=== PATIENT | male | born 1970 | race African-American/Black ===

== ENCOUNTER 2024-02-27 02:16 | Emergency (ER) | payer MEDICAID, SELFPAY ==
[2024-02-27 02:17] VITALS: BMI 41.3
--- NOTE | 2024-02-27 02:19 | EKG_ITS ---
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
[2024-02-27 02:29] VITALS: BP 171/112; BP 173/119; PULSE 87; RESP 18; TEMP 36.5; O2SAT 96
--- NOTE | 2024-02-27 02:39 | XR_ITS ---
Examination: PA chest single view Technique: Upright PA chest single view Exam date and time: February 27, 2024 0243 hrs. Indications: SOB today, COPD history Findings: Normal heart size No pneumonia or pulmonary edema The osseous structures are intact Impression: No active disease
--- NOTE | 2024-02-27 02:40 | PD.EDRME ---
Rapid Medical Screening Exam RME Arrival date/time: 02/27/24 02:16 53M with history of COPD presents to ED with 1 day of SOB. Chief Complaint: Shortness of Breath/Dyspnea Time Seen by Provider: 02/27/24 02:47 Vital signs: Vital Signs Temperature 97.7 F 02/27/24 02:29 Pulse Rate 87 02/27/24 02:29 Respiratory Rate 18 02/27/24 02:29 Blood Pressure 173/119 H 02/27/24 02:29 Pulse Oximetry (%) 96 02/27/24 02:29 Oxygen Delivery Method Room Air 02/27/24 02:29
[2024-02-27] MEDS: IPRATROPIUM RT 0.5 MG/ 2.5 ML NEBU 1 MG INH (02:53)
[2024-02-27] MEDS: SODIUM CHLORIDE RT SOL 0.9% 3 ML NEBU INH (02:53)
[2024-02-27] MEDS: LEVALBUTEROL RT 1.25 MG/0.5 ML NEBU 5 MG INH (02:54)
[2024-02-27 03:01] VITALS: PULSE 72; RESP 20; O2SAT 95
[2024-02-27] MEDS: DEXAMETHASONE SOD PHOS INJ 10 MG/ML VIAL PO (03:18)
[2024-02-27 03:27] LABS: Basophils # (Auto) 0.1 Thou/mm3 (0.0-0.2); Basophils % (Auto) 1 % (0-2.5); Eosinophils # (Auto) 0.3 Thou/mm3 (0.0-0.5); Eosinophils % (Auto) 2 % (0-10); Hematocrit 44.7 % (41.0-53.0); Immature Granulocytes % (Auto) 1 % (0-0); Lymphocytes % (Auto) 22 % (10-50); Mean Corpuscular HGB Conc 33.6 g/dl (31.0-37.0); Mean Corpuscular Hemoglobin 29.4 pg (25.0-35.0); Mean Corpuscular Volume 88 fL (80-100); Monocytes # (Auto) 1.1 Thou/mm3 (0.0-0.8); Monocytes % (Auto) 8 % (0-12); Neutrophils % (Auto) 66 % (37-80); Nucleated Red Blood Cell % 0 /100 WBC (0); Platelet Count 228 Thou/mm3 (140-440); RDW Standard Deviation 41.6 fL (35.1-43.9); White Blood Count 13.6 Thou/mm3 (3.8-10.6)
[2024-02-27 03:37] LABS: B-Type Natriuretic Peptide < 20 pg/mL (0-100)
[2024-02-27 03:39] LABS: Alanine Aminotransferase 18 U/L (10-49); Albumin, Serum 4.3 gm/dL (3.5-5.0); Albumin/Globulin Ratio 1.7 (1.2-2.2); Alkaline Phosphatase 67 U/L (46-116); Anion Gap 7 (7-16); Aspartate Amino Transferase 16 U/L (0-34); BUN/Creatinine Ratio 14 Ratio (12-20); Bilirubin,Total 0.4 mg/dL (0.3-1.2); Blood Urea Nitrogen 11 mg/dL (9-23); Calcium 9.5 mg/dL (8.3-10.6); Calcium (Corrected) 9.5 mg/dL (8.5-10.1); Carbon Dioxide 27.5 mMol/L (20.0-31.0); Chloride 109 mMol/L (98-107); Creatinine (Component) 0.8 mg/dL (0.6-1.3); Estimated Creatinine Clearance 142.4 mL/min (>60); Globulin 2.5 gm/dL (2.3-3.5); Glucose 84 mg/dL (74-106); Osmolality,Calculated 283 (275-295); Potassium 3.5 mMol/L (3.4-5.1); Sodium 143 mMol/L (136-145); Total Protein 6.8 gm/dL (5.7-8.2); Troponin I < 0.020 ng/mL (0.0-0.045); eGFR > 60 See Note
--- NOTE | 2024-02-27 03:55 | EDNOTE_ITS ---
ED SOB =RME/HPI General Chief Complaint: Shortness of Breath/Dyspnea Stated Complaint: DIFF BREATHING; HX COPD Time Seen by Provider: 02/27/24 02:47 Arrival date/time: 02/27/24 02:16 Limitations: no limitations RME / HPI RME / HPI Narrative: 02/27/24 02:16 53M with history of COPD presents to ED with 1 day of SOB. ---- Dr[facility] Main ED Evaluation: 53yo male with a history of COPD, asthma presents to the ED for a chief complaint of shortness of breath since last night. Patient reports an associated cough. He endorses he smokes cigarettes. He denies any fever, chills, N/V or any other associated symptoms. Related Data Home Medications ?Medication ?Instructions ?Recorded ?Confirmed metoprolol succinate 25 mg 25 mg PO QDAY 09/29/23 09/29/23 tablet,extended release 24 hr Previous Rx's ?Medication ?Instructions ?Recorded albuterol sulfate 90 mcg/actuation 2 inh inhalation Q4H PRN shortness 08/10/23 aerosol inhaler (Ventolin HFA) of breath or wheezing #8.5 grams tiotropium bromide 18 mcg capsule 1 cap inhalation QDAY #2 puffs 08/10/23 with inhalation device (Spiriva with HandiHaler) levofloxacin 750 mg tablet 750 mg PO QDAY #7 tabs 09/29/23 prednisone 50 mg tablet 50 mg PO QDAY #7 tabs 02/27/24 Allergies Allergy/AdvReac Type Severity Reaction Status Date / Time Penicillins Allergy Severe HIVES, Verified 02/27/24 02:19 EYES SWELL Sulfa (Sulfonamide Allergy Severe HIVES,EYES Verified 02/27/24 02:19 Antibiotics) SWELL Iodinated Contrast Media Allergy Unknown Anaphylaxis Verified 02/27/24 02:19 Review of Systems Review of Systems Systems Reviewed: All systems reviewed, normal except as documented ED Exam General Limitations: Present no limitations General appearance: Present alert and in no apparent distress Head Head exam: Present atraumatic Eye Eye exam: Present normal appearance, PERRL and EOMI ENT ENT exam: Present normal exam, normal oropharynx and mucous membranes moist Neck Neck exam: Present normal inspection, full ROM and trachea midline Chest Chest inspection: Present normal inspection and symmetric chest wall rise Respiratory Respiratory exam: Present wheezes (diffuse) and other (good air movement); Abse nt accessory muscle use Cardiovascular Cardiovascular exam: Present regular rate, normal rhythm and normal heart sounds Abdominal Exam Abdominal exam: Present soft and normal bowel sounds Extremities Exam Extremities exam: Present normal inspection and full ROM; Absent pedal edema Back Exam Back exam: Present normal inspection and full ROM Neurological Exam Neurological exam: Present alert, oriented X3 and CN II-XII intact Psychiatric Psychiatric exam: Present normal affect and normal mood Skin Skin exam: Present warm, dry, intact and normal color; Absent diaphoresis Course Course Course Narrative: CXR is ordered for determining the etiology of shortness of breath. 0517: Patient states he feels significantly better compared to when he initially came in. He is saturating at 93% on room air, and feels comfortable being discharged at this time. Quality Measures none Orders Category Date Time Status EKG (ED ONLY) *Do not use* NOW Care 02/27/24 02:19 Completed EKG (ED ONLY) *Do not use* NOW Care 02/27/24 05:19 Active EKG (ED Only) Stat Exams 02/27/24 02:19 Draft EKG (ED Only) Stat Exams 02/27/24 05:19 Ordered XR chest 1V portable Stat Exams 02/27/24 02:39 Taken BNP [B-Type Natriuretic Peptide] Stat Lab 02/27/24 03:10 Completed CBC Stat Lab 02/27/24 03:10 Completed Comprehensive Metabolic Panel Stat Lab 02/27/24 03:10 Completed Troponin I Stat Lab 02/27/24 03:10 Completed Dexamethasone Inj [Decadron Inj] Med 02/27/24 02:39 Discontinued 10 mg PO X1 ONE Ipratropium [place] Rt Keisha [Atrovent Rt Keisha] Med 02/27/24 02:39 Discontinued 1 mg INH X1 ONE Levalbuterol Rt [Xopenex Rt Keisha] Med 02/27/24 02:39 Discontinued 5 mg INH X1 ONE Sodium Chloride Rt Keisha 0.9% [NS Rt Keisha 0.9%] Med 02/27/24 02:39 Active 3 ml INH PRN PRN Vital Signs Vital signs: Vital Signs Temperature 97.7 F 02/27/24 02:29 Pulse Rate 87 02/27/24 02:29 Respiratory Rate 18 02/27/24 02:29 Blood Pressure 173/119 H 02/27/24 02:29 Pulse Oximetry (%) 96 02/27/24 02:29 Oxygen Delivery Method Room Air 02/27/24 02:29 Pulse ox is 96% on room air, which is normal according to my interpretation. Procedures -ED Smoking Cessation Time Spent Discussing Smoking Cessation w/Patient (min): 5 Patient Acknowledges Need for Cessation: Yes Additional Comments: The patient was counseled as to the multiple risks to their health from continued use of tobacco products. It was explained that continuing to smoke may lead to multiple short and senior living negative health consequences, including but not limited to mouth/esophageal/lung cancer, COPD, and heart disease. The patient states she/he understands these risks and also understands the options and resources available to them to help them stop smoking. Nicotine replacement therapy, local hotlines, and local resources were discussed as viable options for helping them stop their tobacco use. The total time spent counseling the patient regarding tobacco cessation was 5 minutes. Shortness of Breath / Dyspnea Patient data External records reviewed:: [facility] previous records (Per chart review, patient was admitted here on 09/29/23 for COPD exacerbation.) Clinical information provided by:: patient Social determinants that could affect healthcare access:: substance use (smokes cigarettes) Patient has the following chronic illnesses:: COPD, asthma How is presenting disease/condition affected by chronic disease/condition?: exacerbated by Evaluation data The following diagnostics were reviewed and interpreted by me:: lab results, radiology exam(s) and EKG tracing(s) Lab and/or radiology exams considered but not ordered:: none Interpretation Summary: WBC count is elevated at 13.6, CMP is normal, Troponin is normal, BNP is normal, according to my interpretation. CXR is negative for any pleural effusions, CHF, or infiltrates, according to my interpretation. EKG done at 0236, NSR, rate of 84, poor baseline, artifact noted, according to my interpretation - will repeat EKG. EKG done at 0527, NSR, rate of 85, normal intervals, normal axis, no acute ST or T-wave changes, no STEMI, QTc: 402, according to my interpretation. Medications / Prescriptions Medications or Prescriptions considered but not ordered:: none Medication administrations:: Medication Administration History Sodium Chloride (Sodium Chloride Rt Keisha 0.9% 3 Ml Nebu) 3 ml INH PRN PRN PRN Reason: SOLN Stop: 03/28/24 02:38 Last Admin: 12/20/24 02:53 Dose: 3 ml Documented By: CHINO Discontinued Medications Dexamethasone Sodium Phosphate (Dexamethasone Sod Phos Inj 10 Mg/Ml Vial) 10 mg PO X1 ONE Stop: 02/27/24 02:40 Last Admin: 02/27/24 03:18 Dose: 10 mg Documented By: HUGO Comments: med given po Ipratropium [place] (Ipratropium Rt 0.5 Mg/ 2.5 Ml Nebu) 1 mg INH X1 ONE Stop: 02/27/24 02:40 Last Admin: 02/27/24 02:53 Dose: 1 mg Documented By: CHINO Levalbuterol HCl (Levalbuterol Rt 1.25 Mg/0.5 Ml Nebu) 5 mg INH X1 ONE Stop: 02/27/24 02:40 Last Admin: 02/27/24 02:54 Dose: 5 mg Documented By: CHINO see above Consultations Consultation(s) initiated? (list below): No Diagnosis Shortness of Breath Differential Diagnosis: congestive heart failure, community acquired pneumonia, asthma with exacerbation, pulmonary embolism and other (COPD exacerbation) Most likely diagnosis given after review of the tests above:: see below Admission Indicated Admission indicated?: not indicated Admission Request Was there a request for admission?: No Disposition Plan Disposition Plan: Discharge Discharge Attestation Discharge Attestation: The patient and all family members were given an opportunity to ask questions and understood the discharge instructions. Discharge instructions specifically effects, indications for sooner follow up or return to the emergency department, and the expected course of current diagnosis. Patient condition: Stable Discharge Plan Plan Patient Disposition: HOME (Self Care) Patient condition on transfer: Stable Prescriptions/Referrals Prescriptions/Med Rec: New prednisone 50 mg tablet 50 mg PO QDAY Qty: 7 0RF No Action metoprolol succinate 25 mg tablet extended release 24 hr 25 mg PO QDAY Patient Comments: TAKE 1 TABLET BY MOUTH EVERY DAY levofloxacin 750 mg tablet 750 mg PO QDAY Qty: 7 0RF albuterol sulfate [Ventolin HFA] 90 mcg/actuation HFA aerosol inhaler 2 inh inhalation Q4H PRN (Reason: shortness of breath or wheezing) Qty: 8.5 0RF tiotropium bromide [Spiriva with HandiHaler] 18 mcg capsule, w/inhalation device 1 cap inhalation QDAY Qty: 2 0RF Rx Instructions: puncture 1 cap using device; one dose = 2 inhalations Problem List Clinical Impression: COPD (chronic obstructive pulmonary disease) Patient/Caregiver Discharge Instructions Education Materials: Asthma and COPD Print Language: Irish Stand Alone Forms: [employer]oco Award Info., Patient Portal Info Letter
[2024-02-27 04:30] VITALS: BP 148/106; PULSE 74; RESP 18; TEMP 36.6; O2SAT 90
[2024-02-27 05:54] VITALS: BP 152/101; PULSE 80; RESP 20; TEMP 36.6; O2SAT 91
== END 2024-02-27 05:54 | disposition home or self-care (01) ==
LOC: SERX 06:26
PROVIDERS: Physician Assistant; Emergency Provider Emergency Medicine; PCP Nurse Practitioner Family
DX: J44.89 Other specified chronic obstructive pulmonary disease (principal); F17.210 Nicotine dependence, cigarettes, uncomplicated
CPT/HCPCS: 36415; 71045; 80053; 83880; 84484; 85025; 93005; 94644; 99283; J1100

== ENCOUNTER 2024-11-25 12:07 | Inpatient (IN) | payer MEDICAID, SELFPAY ==
[2024-11-25] VITALS (17 sets, daily range): BP systolic 143–181; BP diastolic 70–113; PULSE 72–111; RESP 10–29; TEMP 36.2–37.3; O2SAT 89–96; BMI 39.1
--- NOTE | 2024-11-25 12:23 | EKG_ITS ---
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
--- NOTE | 2024-11-25 12:23 | XR_ITS ---
Examination: AP chest single view TECHNIQUE: AP chest portable upright single view Date and time: November 26, 2024 1233 hours, comparison February 27, 2024 INDICATIONS: Chest pain shortness of breath beginning 2 days ago FINDINGS: Normal heart size The lungs are clear. The osseous structures are intact IMPRESSION: No active disease
[2024-11-25] MEDS: ALBUTEROL RT 2.5 MG/0.5 ML NEBU 10 MG INH (12:30)
--- NOTE | 2024-11-25 12:30 | PD.EDSOB ---
ED SOB =RME/HPI General Chief Complaint: Shortness of Breath/Dyspnea Stated Complaint: DYSPNEA Time Seen by Provider: 11/25/24 12:23 Arrival date/time: 11/25/24 12:07 RME / HPI RME / HPI Narrative: 54-year-old male patient chronic smoker, history of COPD, came in for evaluation regarding shortness of breath. Has been ongoing for the last 3 to 4 days, severity severe. Patient been having cough also nonproductive. Denies any fever denies any other complaints patient continued to be smoking, he is planning to quit smoking today. Patient was also seen in [place] for the same complaints last night worsening this morning prompted this consultation. He was not prescribed medication while in [place]. Patient has never been intubated. Was admitted here for the same complaints last year. Related Data Home Medications ?Medication ?Instructions ?Recorded ?Confirmed metoprolol succinate 25 mg 25 mg PO QDAY 09/29/23 09/29/23 tablet,extended release 24 hr Previous Rx's ?Medication ?Instructions ?Recorded albuterol sulfate 90 mcg/actuation 2 inh inhalation Q4H PRN shortness 08/10/23 aerosol inhaler (Ventolin HFA) of breath or wheezing #8.5 grams tiotropium bromide 18 mcg capsule 1 cap inhalation QDAY #2 puffs 08/10/23 with inhalation device (Spiriva with HandiHaler) levofloxacin 750 mg tablet 750 mg PO QDAY #7 tabs 09/29/23 prednisone 50 mg tablet 50 mg PO QDAY #7 tabs 02/27/24 Allergies Allergy/AdvReac Type Severity Reaction Status Date / Time Penicillins Allergy Severe HIVES, Verified 02/27/24 02:19 EYES SWELL Sulfa (Sulfonamide Allergy Severe HIVES,EYES Verified 02/27/24 02:19 Antibiotics) SWELL Iodinated Contrast Media Allergy Unknown Anaphylaxis Verified 02/27/24 02:19 Review of Systems Review of Systems Narrative Review of Systems: Review of system reviewed and within normal limits except mentioned in HPI ED Exam Narrative Physical exam: VITAL SIGNS: Reviewed. GENERAL APPEARANCE: Alert and interactive, follows commands, no acute distress, HEAD AND FACE: Non-traumatic. ENT: PERRL, pink conjunctivitis, eyelid no trauma, Mucous membrane moist. NECK: Supple, nontender, no nuchal rigidity. CHEST: No tenderness, no crepitus, no paradoxical movement, no retractions. LUNGS:Symmetric, no rales, + wheezing, no ronchi, no stridor, decreased breath sounds bilaterally. HEART: Regular rate, regular rhythm, no murmur, no gallops. ABDOMEN: Soft, positive bowel sounds, nondistended, no guarding, nontender, no rebound, no masses, RECTAL: Deferred. GENITAL: Deferred. NEUROLOGICAL: Gross motor function intact sensory function intact, Appropriate for age. MUSCULOSKELETAL: low back nontender, full range of motion. EXTREMITIES: Nontender, full range of motion. SKIN: Color pink, dry, no rash, no lacerations, no abrasions, no contusions. LYMPHATICS: Deferred. Course Quality Measures none Orders Category Date Time Status Bedside COVID-19 Antigen Test NOW Care 11/25/24 12:29 Active COVID-19 Screening Questionnaire NOW Care 11/25/24 15:43 Active Sports Physician NOW Care 11/25/24 12:23 Active Decision to Admit X1 Care 11/25/24 15:43 Active EKG (ED ONLY) *Do not use* NOW Care 11/25/24 12:23 Active Insert IV NOW Care 11/25/24 12:23 Active EKG (ED Only) Stat Exams 11/25/24 12:23 Draft XR chest 1V portable Stat Exams 11/25/24 12:23 Completed CBC Stat Lab 11/25/24 12:23 Completed Comprehensive Metabolic Panel Stat Lab 11/25/24 12:34 Completed Mag [Magnesium] Stat Lab 11/25/24 12:34 Completed Troponin I Stat Lab 11/25/24 12:34 Completed ALBUTEROL RT 0.5ml [Proventil Rt 0.5ml] Med 11/25/24 12:23 Discontinued 10 mg INH X1 ONE Albuterol/Ipratr Rt Keisha [Duoneb Rt Keisha] Med 11/25/24 13:46 Discontinued 3 ml INH X1 ONE Ipratropium [place] Rt Keisha [Atrovent Rt Keisha] Med 11/25/24 12:23 Discontinued 1 mg INH X1 ONE Magnesium Sulfate 2 GM Ivpb [Magnesium Sulfate Ivpb] Med 11/25/24 12:29 Discontinued 2 gm in 50 ml IV X1 MethylPREDNISolone.* [SoluMEDROL Inj] Med 11/25/24 12:23 Discontinued 125 mg IVP X1 ONE Sodium Chloride Rt Keisha 0.9% [NS Rt Keisha 0.9%] Med 11/25/24 12:23 Active 3 ml INH PRN PRN Vital Signs Vital signs: Vital Signs Temperature 97.8 F 11/25/24 12:16 Pulse Rate 111 H 11/25/24 12:16 Respiratory Rate 20 11/25/24 12:16 Blood Pressure 179/113 H 11/25/24 12:16 Pulse Oximetry (%) 90 L 11/25/24 12:16 Oxygen Delivery Method Nasal Cannula 11/25/24 12:16 Oxygen Flow Rate 2 11/25/24 12:16 Shortness of Breath / Dyspnea [facility] Narrative MDM Narrative:: 54-year-old male patient chronic smoker, history of COPD, came in for evaluation regarding shortness of breath. Has been ongoing for the last 3 to 4 days, severity severe. Patient been having cough also nonproductive. Denies any fever denies any other complaints patient continued to be smoking, he is planning to quit smoking today. Patient was also seen in [place] for the same complaints last night worsening this morning prompted this consultation. He was not prescribed medication while in [place]. Patient has never been intubated. Was admitted here for the same complaints last year. Patient's laboratory workup all came back with WBC count of 24.9 creatinine is normal, EKG showed sinus rhythm, ventricular 76 bpm, and ST segment elevation depression noted. Chest x-ray showed no active disease noted. Initially patient was noted to be hypoxic, was placed on facemask, breathing treatment was given hour-long, and Solu-Medrol IV. Patient also received magnesium IV. On reevaluation patient still having wheezing, I added DuoNeb breathing treatment. Currently still having shortness of breath and wheezing. Spoke with hospitalist, who admitted the patient, patient satting 95% on facemask. Patient data External records reviewed:: None Clinical information provided by:: patient Social determinants that could affect healthcare access:: none Patient has the following chronic illnesses:: COPD, asthma, chronic smoker How is presenting disease/condition affected by chronic disease/condition?: exacerbated by Evaluation data The following diagnostics were reviewed and interpreted by me:: lab results, radiology exam(s) and EKG tracing(s) Lab and/or radiology exams considered but not ordered:: None Interpretation Summary: See results MDM Medications / Prescriptions Medications or Prescriptions considered but not ordered:: None Medication administrations:: Medication Administration History Sodium Chloride (Sodium Chloride Rt Keisha 0.9% 3 Ml Nebu) 3 ml INH PRN PRN PRN Reason: SOLN Stop: 12/25/24 12:22 Last Admin: 11/25/24 12:31 Dose: 3 ml Documented By: JENNIFER Discontinued Medications Albuterol (Albuterol Rt 2.5 Mg/0.5 Ml Nebu) 10 mg INH X1 ONE Stop: 11/25/24 12:24 Last Admin: 11/25/24 12:30 Dose: 10 mg Documented By: JENNIFER Albuterol/Ipratropium (Albuterol/Ipratropium (Duoneb) Rt Keisha 3 Ml Nebu) 3 ml INH X1 ONE Stop: 11/25/24 13:47 Last Admin: 11/25/24 14:08 Dose: 3 ml Documented By: JENNIFER Magnesium Sulfate (Magnesium Sulfate Ivpb) 2 gm in 50 mls @ 25 mls/hr IV X1 ONE Stop: 11/25/24 14:28 Last Admin: 11/25/24 12:52 Dose: 25 mls/hr Documented By: SALUD Ipratropium [place] (Ipratropium Rt 0.5 Mg/ 2.5 Ml Nebu) 1 mg INH X1 ONE Stop: 11/25/24 12:24 Last Admin: 11/25/24 12:31 Dose: 1 mg Documented By: JENNIFER Methylprednisolone Sodium Succinate (Methylprednisolone Sod Succ 62.5 Mg/Ml 2ml Vial) 125 mg IVP X1 ONE Stop: 11/25/24 12:24 Last Admin: 11/25/24 12:52 Dose: 125 mg Documented By: SALUD Solu-Medrol, DuoNeb, magnesium sulfate, hour-long breathing treatment, with albuterol/DuoNeb Consultations Consultation(s) initiated? (list below): No Diagnosis Shortness of Breath Differential Diagnosis: acute exacerbation of chronic obstructive airways disease, community acquired pneumonia and asthma with exacerbation Most likely diagnosis given after review of the tests above:: Acute exacerbation of COPD with asthma Admission Indicated Admission indicated?: indicated Explain why admission is indicated or not indicated:: Patient is to be admitted for management Admission Request Was there a request for admission?: Yes Admission Attestation Admission request attestation: Discussed case with [Dr. Costa] from Hospitalist service regarding admission. Discussed patients ED course, exam findings, labs, and radiology results. The Hospitalist [agrees] to accept the patient for admission. Disposition Plan Disposition Plan: Admit Discharge Plan Plan Patient Disposition: Admit Acute Care w/in Hospital Discharge Disposition comment: Stable Prescriptions/Referrals Prescriptions/Med Rec: No Action metoprolol succinate 25 mg tablet extended release 24 hr 25 mg PO QDAY Patient Comments: TAKE 1 TABLET BY MOUTH EVERY DAY levofloxacin 750 mg tablet 750 mg PO QDAY Qty: 7 0RF albuterol sulfate [Ventolin HFA] 90 mcg/actuation HFA aerosol inhaler 2 inh inhalation Q4H PRN (Reason: shortness of breath or wheezing) Qty: 8.5 0RF tiotropium bromide [Spiriva with HandiHaler] 18 mcg capsule, w/inhalation device 1 cap inhalation QDAY Qty: 2 0RF Rx Instructions: puncture 1 cap using device; one dose = 2 inhalations prednisone 50 mg tablet 50 mg PO QDAY Qty: 7 0RF Referrals: No Primary/Family,Physician [Primary Care Provider] - In 1 week Problem List Clinical Impression: Acute exacerbation of COPD with asthma, Cigarette smoker Patient/Caregiver Discharge Instructions Print Language: Brazilian Stand Alone Forms: [employer]oco Award Info., Patient Portal Info Letter
[2024-11-25] MEDS: IPRATROPIUM RT 0.5 MG/ 2.5 ML NEBU 1 MG INH (12:31)
[2024-11-25] MEDS: SODIUM CHLORIDE RT SOL 0.9% 3 ML NEBU INH (12:31)
[2024-11-25 12:39] LABS: Basophils # (Auto) 0.1 Thou/mm3 (0.0-0.2); Basophils % (Auto) 0 % (0-2.5); Eosinophils # (Auto) 0.0 Thou/mm3 (0.0-0.5); Eosinophils % (Auto) 0 % (0-10); Hematocrit 44.4 % (41.0-53.0); Hemoglobin 14.4 g/dL (13.5-16.0); Immature Granulocytes Auto 0.19 Thou/mm3 (0.00-0.00); Lymphocytes # (Auto) 0.6 Thou/mm3 (1.0-4.8); Lymphocytes % (Auto) 3 % (10-50); Mean Corpuscular HGB Conc 32.4 g/dl (31.0-37.0); Mean Corpuscular Hemoglobin 29.0 pg (25.0-35.0); Mean Corpuscular Volume 90 fL (80-100); Monocytes # (Auto) 0.9 Thou/mm3 (0.0-0.8); Monocytes % (Auto) 4 % (0-12); Neutrophils # (Auto) 23.1 Thou/mm3 (1.8-7.7); Neutrophils % (Auto) 93 % (37-80); Nucleated Red Blood Cell # 0.00 Thou/mm3 (0.00-0.00); Nucleated Red Blood Cell % 0 /100 WBC (0); Platelet Count 263 Thou/mm3 (140-440); RDW Standard Deviation 43.4 fL (35.1-43.9); Red Blood Count 4.96 Miln/mm3 (4.50-5.90); White Blood Count 24.9 Thou/mm3 (3.8-10.6)
[2024-11-25] MEDS: MethylPREDNISolone SOD SUCC 62.5 MG/ML 2ML VIAL 125 MG IVP (12:52)
[2024-11-25] MEDS: Magnesium Sulfate 2 GM Ivpb 2 GM/50 ML BAG IV (12:52)
[2024-11-25 13:01] LABS: Alanine Aminotransferase 21 U/L (10-49); Albumin, Serum 4.5 gm/dL (3.5-5.0); Albumin/Globulin Ratio 1.9 (1.2-2.2); Alkaline Phosphatase 76 U/L (46-116); Anion Gap 10 (7-16); Aspartate Amino Transferase 21 U/L (0-34); BUN/Creatinine Ratio 11 Ratio (12-20); Bilirubin,Total 0.4 mg/dL (0.3-1.2); Blood Urea Nitrogen 10 mg/dL (9-23); Calcium 9.8 mg/dL (8.3-10.6); Calcium (Corrected) 9.8 mg/dL (8.5-10.1); Carbon Dioxide 27.4 mMol/L (20.0-31.0); Chloride 105 mMol/L (98-107); Creatinine (Component) 0.9 mg/dL (0.6-1.3); Estimated Creatinine Clearance 121.5 mL/min (>60); Globulin 2.4 gm/dL (2.3-3.5); Glucose 129 mg/dL (74-106); Magnesium 2.0 mg/dL (1.6-2.6); Osmolality,Calculated 284 (275-295); Potassium 4.3 mMol/L (3.4-5.1); Sodium 142 mMol/L (136-145); Total Protein 6.9 gm/dL (5.7-8.2); Troponin I < 0.020 ng/mL (0.0-0.045); eGFR > 60 See Note
[2024-11-25] MEDS: ALBUTEROL/IPRATROPIUM (Duoneb) RT SOL 3 ML NEBU INH ×4 (14:08→21:15)
--- NOTE | 2024-11-25 16:37 | ESHP_ITS ---
<Statement entered by Bon Fontana MD - 11/25/24 17:33> 54 year old man with past medical history of COPD not on home oxygen, knee osteoarthritis, tobacco dependence, morbid obesity and likely undiagnosed obstructive sleep apnea presenting to the ED on 11/25 with shortness of breath and wheezing. Patient has multiple admissions over the years for COPD exacerbation and was recently seen at [facility] for similar presentation. He states the shortness of breath has been ongoing for the past 4 days and has progressively worsened. 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 He denies any travel, alcohol or illicit drug use. He denies any precipitating factors such as sick contacts, fever/chills or recent weight loss. Patient follows up with a manager behavioral from [place] (doesn't remember name) who has started him on a yellow inhaler which he states he uses daily. Patient will be admitted for acute hypoxic/hypercapnic respiratory failure secondary to COPD exacerbation and will be treated with IV steroids, IV azithromycin, breathing treatments and BIPAP. Patient is currently on 4L OxyMask supplemental oxygenation and saturating 94+ with diffuse wheezing noted on lung segovia bilaterally. Will continue to monitor for any acute changes. I have personally seen and examined the patient. I agree with the resident's assessment and plan as documented below. Bon Fontana DO PGY-2 Internal Medicine - [facility] Documentation for date of: 11/25/24 HPI History of Present Illness History of present illness: Patient is a 54-year-old male with past medical history of COPD not on oxygen at home, tobacco use, and hx of pulmonary cocci (diagnosed 1993, treated) who presents on 11/25 for severe shortness of breath for the past 3 to 4 days. Reports that he was visiting his brother in [place] when he started having shortness of breath. Given recent contact with black mold at his brother's place. Had to go to ER in [place], was given breathing treatment and steroids with minimal improvement but was discharged home. Patient reports he only uses albuterol inhaler at home but ran out of medications. Has manager behavioral in [place] that diagnosed with COPD. Patient does not use CPAP at night but reports that he snores and is tired upon waking. 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 ED Course: -Initial vitals were BP 179/111, HR 111, RR 20, temp 97.8F, 90% on 2 L NC -Labs significant for WBC 24.9. CMP unremarkable. BNP and troponin WNL. EKG showed sinus rhythm with no ST or T wave abnormalities. -Imaging included unremarkable CXR. -In the ED, patient was given albuterol 10 mg x1, ipratropium 1 mg x 1, Solu- Medrol 125 mg x 1, mag 2 g x 1, DuoNebs x 1 -Patient was admitted for acute hypoxic respiratory failure secondary to COPD exacerbation Review of Systems Review of systems otherwise negative except what is mentioned above. Past Medical History: As above Family History: Noncontributory Surgical History: None Social History: Smoked 1 pack/day for many years. Denies current alcohol use, denies recreational drug use. Works in construction, came in recent contact with black mold. Current Medications: Albuterol inhaler, pending official med rec Allergies: Penicillins (hives), sulfa (hives), iodinated contrast (anaphylaxis) Exam Vital Signs Temp Pulse Resp BP Pulse Ox O2 Del Method O2 Flow Rate 99.1 F 93 27 H 179/110 H 93 L Oxy Mask 4 11/25/24 16:00 11/25/24 16:00 11/25/24 16:00 11/25/24 16:00 11/25/24 16:00 11/25/24 16:00 11/25/24 16:05 Narrative Exam Physical Exam General: Awake, in acute distress due to shortness of breath. Having difficulty completing full sentences. On 8L oxymask. HEENT: Normocephalic, atraumatic, mucous membranes moist. Heart: Regular rate and rhythm, normal S1 and S2, no murmurs. Lungs: Diffuse wheezing bilaterally, left > right. Abdomen: Soft, nondistended, nontender, positive bowel sounds. No guarding or rebound tenderness. Neurologic: Alert and oriented x3, no gross neurological deficit, and patient able to move all 4 extremities. Extremities: No edema. Skin: No rash or ecchymoses. Results: Labs 11/26/24 05:34 11/26/24 05:34 Labs: Short CBC 11/25/24 Range/Units 12:23 WBC 24.9 H (3.8-10.6) Thou/mm3 Hgb 14.4 (13.5-16.0) g/dL Hct 44.4 (41.0-53.0) % Plt Count 263 (140-440) Thou/mm3 BMP 11/25/24 12:34 Sodium 142 Potassium 4.3 Chloride 105 Carbon Dioxide 27.4 BUN 10 Creatinine 0.9 Glucose 129 H Calcium 9.8 Cardiac Enzymes 11/25/24 Range/Units 12:34 Troponin I < 0.020 (0.0-0.045) ng/mL Liver Function 11/25/24 Range/Units 12:34 Total Bilirubin 0.4 (0.3-1.2) mg/dL AST 21 (0-34) U/L ALT 21 (10-49) U/L Alkaline Phosphatase 76 (46-116) U/L Albumin 4.5 (3.5-5.0) gm/dL Quality Measures Quality Measures none Medications Home Medications and Allergies Home Medications ?Medication ?Instructions ?Recorded ?Confirmed ?Type metoprolol succinate 25 mg 25 mg PO QDAY 09/29/2311/08 History tablet,extended release 24 hr Allergies Allergy/AdvReac Type Severity Reaction Status Date / Time Penicillins Allergy Severe HIVES, Verified 02/27/24 02:19 EYES SWELL Sulfa (Sulfonamide Allergy Severe HIVES,EYES Verified 02/27/24 02:19 Antibiotics) SWELL Iodinated Contrast Media Allergy Unknown Anaphylaxis Verified 02/27/24 02:19 Visit Medications Acetaminophen (Acetaminophen 325 Mg Tablet) 650 mg PO Q6H PRN PRN Reason: Pain 1-3 and/or Fever >100.1 Stop: 12/25/24 16:04 Albuterol/Ipratropium (Albuterol/Ipratropium (Duoneb) Rt Keisha 3 Ml Nebu) 3 ml INH Q3HRRT [facility]ANDELL Stop: 12/25/24 16:44 Albuterol/Ipratropium (Albuterol/Ipratropium (Duoneb) Rt Keisha 3 Ml Nebu) 3 ml INH Q2HR PRN PRN Reason: SHORTNESS OF BREATH OR WHEEZE Stop: 12/25/24 16:33 Azithromycin (Azithromycin 250 Mg Tablet) 250 mg PO QDAY RANDELL Stop: 12/03/24 08:59 Heparin Sodium (Porcine) (Heparin Sod Inj 5000 Unit/Ml Vial) 5,000 unit SC Q8HR [facility] Stop: 12/09/24 21:59 Azithromycin 500 mg/ Sodium (Chloride) 250 mls @ 250 mls/hr IV X1 ONE Stop: 11/25/24 17:08 Lisinopril (Lisinopril 2.5 Mg Tablet) 10 mg PO QDAY [facility] Stop: 12/26/24 08:59 Methylprednisolone Sodium Succinate (Methylprednisolone Sod Succ 40 Mg/Ml Vial) 40 mg IM Q8HR [facility] Stop: 12/02/24 21:59 Fluticasone/Salmeterol (Fluticasone/Salmeterol 250/50 14 Dose Inh) 1 puff INH BIDRT [facility] Stop: 12/25/24 18:59 Sodium Chloride (Sodium Chloride Rt Keisha 0.9% 3 Ml Nebu) 3 ml INH PRN PRN PRN Reason: SOLN Stop: 12/25/24 12:22 Last Admin: 11/25/24 12:31 Dose: 3 ml Discontinued Medications Acetaminophen (Acetaminophen 325 Mg Tablet) 650 mg PO Q6H PRN PRN Reason: Fever >101.5 Stop: 12/25/24 16:04 Albuterol (Albuterol Rt 2.5 Mg/0.5 Ml Nebu) 10 mg INH X1 ONE Stop: 11/25/24 12:24 Last Admin: 11/25/24 12:30 Dose: 10 mg Albuterol (Albuterol Rt 2.5 Mg/0.5 Ml Nebu) 2.5 mg INH Q4HRRT [facility] Stop: 12/25/24 18:59 Albuterol/Ipratropium (Albuterol/Ipratropium (Duoneb) Rt Keisha 3 Ml Nebu) 3 ml INH X1 ONE Stop: 11/25/24 13:47 Last Admin: 11/25/24 14:08 Dose: 3 ml Albuterol/Ipratropium (Albuterol/Ipratropium (Duoneb) Rt Keisha 3 Ml Nebu) 3 ml INH Q4HRRT [facility] Stop: 12/25/24 18:59 Magnesium Sulfate (Magnesium Sulfate Ivpb) 2 gm in 50 mls @ 25 mls/hr IV X1 ONE Stop: 11/25/24 14:28 Last Infusion: 11/25/24 16:02 Dose: Infused Ipratropium [place] (Ipratropium Rt 0.5 Mg/ 2.5 Ml Nebu) 1 mg INH X1 ONE Stop: 11/25/24 12:24 Last Admin: 11/25/24 12:31 Dose: 1 mg Labetalol HCl (Labetalol Inj 5 Mg/Ml Vial 20 Ml) 10 mg IVP X1 ONE Stop: 11/25/24 16:23 Methylprednisolone Sodium Succinate (Methylprednisolone Sod Succ 62.5 Mg/Ml 2ml Vial) 125 mg IVP X1 ONE Stop: 11/25/24 12:24 Last Admin: 11/25/24 12:52 Dose: 125 mg Sodium Chloride (Sodium Chloride Rt Keisha 0.9% 3 Ml Nebu) 3 ml INH PRN PRN PRN Reason: SOLN Stop: 12/25/24 16:11 Assessment & Plan Plan Patient is a 54-year-old male with past medical history of COPD not on oxygen at home, tobacco use, and hx of pulmonary cocci (diagnosed 1993, treated) who presents on 11/25 for severe shortness of breath, admitted for acute hypoxic respiratory failure secondary to COPD exacerbation. #Acute hypoxic/hypercapnic respiratory failure 2/ #COPD exacerbation #Hx COPD #Hx tobacco use Presented with 3 to 4-day history of shortness of breath. 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 Went to ER in [place] yesterday, received breathing treatment and steroids without much improvement. Presented today because he ran out of medications at home. Pending official med rec but recent medications include albuterol, Spiriva, prednisone. Was diagnosed by manager behavioral in [place] whom he still follows. Smokes 1 PPD for many years, trying to quit. CXR was negative for pneumonia. S/p albuterol 10 mg x1, ipratropium 1 mg x 1, Solu-Medrol 125 mg x 1, mag 2 g x 1, DuoNebs x 1 in ED. Plan: - Azithromycin 500 mg IV x 1, follow-up with azithromycin to 50 mg daily ?DuoNebs every 3 hour and every 2 hours as needed ?Advair twice daily ?IV Solu-Medrol 40 mg every 8 hour ?Incentive spirometer ?Chest physiotherapy daily ?Follow-up influenza, RSV, Aspergillus, cocci serology ?Guaifenesin as needed ?Counseled on tobacco cessation ?Nicotine patch daily #Leukocytosis, likey reactive Likely reactive as patient received steroids yesterday in [place] ED. - Azithromycin as above - CTM CBC #Hypertensive emergency #Hypertension Presented with BP 179/113. Denies history of hypertension. Given IV labetolol 10mg x1. - Losartan 20 mg starting tomorrow - Pending official med rec - CTM BP #DARLINE Patient has been told that he snores at night and wakes up fatigued. Has obese habitus with enlarged neck. Was supposed to get sleep study done but never completed due to insurance complications. Does not use CPAP or oxygen at night. - Recommend outpatient workup for sleep apnea #Hx pulmonary cocci Reports previous diagnosis of cocci in 1993 and was treated. - Follow up cocci serology Health Maintenance Disposition: Med telemetry DVT prophylaxis: Heparin GI prophylaxis: None needed Diet: Regular CODE STATUS: Full Patient plan of care was discussed with the resident, Dr. Fontana, and attending physician, Dr. Gipson. Iliana Montero, PGY-1 Attending Provider Attestation/Addendum I have examined the patient, reviewed labs and imaging findings, discussed the case with the resident(s), and reviewed entered orders. I agree with the plan of care as outlined in this note, with these additional summaries/recommendations: After examination of the patient and review of the clinical data, I feel that this patient needs admission to the hospital for further treatment and evaluation. Patient is a 54-year-old male with a medical history of COPD not on home O2, primary hypertension, and active tobacco use presents to [facility] emergency department on 11/25/2024 with chief complaint of shortness of breath. Patient seen at bedside. He reports he was seen in the emergency room yesterday for COPD exacerbation and symptoms have worsened prompting him to come back to the emergency room. Patient diagnosed with acute hypoxic respiratory failure secondary to COPD exacerbation +/- hypercapnia. BiPAP as needed for respiratory distress. No hypercapnia on first ABG although patient unable to speak in full sentences and high risk for retaining C02 or worsening COPD exacerbation. Low threshold to start BiPAP if needed. Start breathing treatments scheduled and as needed. Start IV azithromycin as patient has 2 out of 3 cardinal signs qualifying for azithromycin. Unable to evaluate Gold severity. No need for sputum cx at this time given unreliable results in COPD exacerbation. Start IV Solu-Medrol. Leukocytosis present on admission likely related to steroids and no evidence of pneumonia on chest x-ray. We will continue to program counselor patient on smoking sensation. Resume home antihypertensives as tolerated although avoid beta piotr in COPD exacerbation. Nicotine patch as desired by patient. Patient updated on the plan and in agreement. All questions answered to satisfaction. Please see residents note for additional details and management. Dr. Leonela MD
[2024-11-25 16:38] LABS: Base Excess 2 (-3-3); HCO3 28 mEq/L (20-26); Inspired O2, VO2 Liters 8 L/min; Inspired Oxygen, FIO2 21 %; O2 Saturation 92 % (91-98); PCO2 44 mmHg (32.0-48.0); PO2 61 mmHg (83-108); pH, Arterial 7.40 (7.35-7.45)
[2024-11-25 16:39] LABS: Allen Test Performed/OK; Puncture Site Right Radial
[2024-11-25] MEDS: LABETALOL INJ 5 MG/ML VIAL 20 ML 10 MG IVP (16:39)
[2024-11-25] MEDS: AZITHROMYCIN INJ 500 MG in SODIUM CHLORIDE 0.9% 250 ML 250 ML 250 MG IV (16:39)
[2024-11-25] MEDS: LOSARTAN POTASSIUM 25 MG TABLET 50 MG PO (18:08)
[2024-11-25 18:31] LABS: Alcohol, Urine Negative (Negative); Amphetamine/Methamp Scrn,U Negative (Negative); Barbiturate Screen,Urine Negative (Negative); Benzodiazepines Screen,Urine Negative (Negative); Benzoylecgonine Screen, Ur Negative (Negative); Fentanyl Screen,Urine Negative (Negative); Opiate Screen,Urine Negative (Negative); THC Screen,Urine Negative (Negative)
--- NOTE | 2024-11-25 18:36 | PC.NURSE ---
RT called to bring BIPAP for patient. RT Gabrielle to bring and apply to patient.
[2024-11-25] MEDS: FUROSEMIDE INJ 10 MG/ML 4ML VIAL 40 MG IVP (19:14)
[2024-11-25 19:17] LABS: D-Dimer < 250 ng/mL (<600)
[2024-11-25 20:55] LABS: Respiratory Syncytial Virus Ag Negative (Negative)
[2024-11-25 20:55] LABS: Influenza A Ag Negative; Influenza B Ag Negative
[2024-11-25] MEDS: HEPARIN SOD INJ 5000 UNIT/ML VIAL SC (21:33)
--- NOTE | 2024-11-25 21:50 | PC.NURSE ---
BP 164/111, HR 93, Pt received Lasix prior to this VS check. Dr. Neely was made aware. to review patient's chart. No new orders received at this time.
--- NOTE | 2024-11-25 22:54 | PC.NURSE ---
BP 167/107, HR 88. Dr. Neely made aware that this fha underwriter could not administer Hydralazine PRN due to parameter give if HR is <85. PT appears to be asleep, eyes closed with no S/Sx of distress. MD okayed not to give medication now. Will continue to monitor.
[2024-11-26] VITALS (112 sets, daily range): BP systolic 72–235; BP diastolic 46–186; PULSE 71–122; RESP 1–41; TEMP 36.1–37; O2SAT 87–99; BMI 39.2
[2024-11-26] MEDS: ALBUTEROL/IPRATROPIUM (Duoneb) RT SOL 3 ML NEBU INH ×9 (01:27→22:26)
[2024-11-26 03:36] LABS: Base Excess 3 (-3-3); HCO3 30 mEq/L (20-26); O2 Saturation 97 % (91-98); PCO2 54 mmHg (32.0-48.0); PO2 89 mmHg (83-108); pH, Arterial 7.35 (7.35-7.45)
[2024-11-26 03:37] LABS: Allen Test Performed/OK; Inspired Oxygen, FIO2 40 %; Puncture Site Left Radial
[2024-11-26] MEDS: LABETALOL INJ 5 MG/ML VIAL 20 ML 10 MG IVP (04:40)
[2024-11-26] MEDS: HEPARIN SOD INJ 5000 UNIT/ML VIAL SC ×2 (05:19→14:56)
[2024-11-26] MEDS: hydrALAZINE INJ 20 MG/ML VIAL 10 MG IVP (05:40)
--- NOTE | 2024-11-26 05:46 | PD.RESEVENT ---
Documentation for date of: 11/26/24 Event Note Event Note: First Rapid Response ? 05:25 AM: Called for severe hypertension (BP 215/137, HR 95). On arrival, patient was mildly tachypneic with wheezing on exam but saturating well at 96% on BiPAP. Denies chest pain or other complaints. Interventions: Hydralazine 10 mg IV push given; started on Losartan 50 mg PO daily. Second Rapid Response ? 06:20 AM: Called for increased work of breathing and tachycardia. Patient noted to be tachycardic and tachypneic with labored respirations and use of accessory muscles while on BiPAP. Interventions: DuoNeb treatment administered. Patient not showing clinical improvement. ICU transfer under consideration if no response. Patient seen and assessed under supervision of attending physician Dr.Alhalaibeh Freda Neely MD PGY-1, Internal Medicine Please note: this document was transcribed using voice recognition technology; minor inaccuracies may be present.
[2024-11-26 05:51] LABS: Basophils # (Auto) 0.0 Thou/mm3 (0.0-0.2); Basophils % (Auto) 0 % (0-2.5); Eosinophils # (Auto) 0.0 Thou/mm3 (0.0-0.5); Eosinophils % (Auto) 0 % (0-10); Hematocrit 47.3 % (41.0-53.0); Hemoglobin 15.5 g/dL (13.5-16.0); Immature Granulocytes Auto 0.17 Thou/mm3 (0.00-0.00); Lymphocytes # (Auto) 0.6 Thou/mm3 (1.0-4.8); Lymphocytes % (Auto) 4 % (10-50); Mean Corpuscular HGB Conc 32.8 g/dl (31.0-37.0); Mean Corpuscular Hemoglobin 29.8 pg (25.0-35.0); Mean Corpuscular Volume 91 fL (80-100); Monocytes # (Auto) 0.7 Thou/mm3 (0.0-0.8); Monocytes % (Auto) 4 % (0-12); Neutrophils # (Auto) 14.7 Thou/mm3 (1.8-7.7); Neutrophils % (Auto) 91 % (37-80); Nucleated Red Blood Cell # 0.00 Thou/mm3 (0.00-0.00); Nucleated Red Blood Cell % 0 /100 WBC (0); Platelet Count 256 Thou/mm3 (140-440); RDW Standard Deviation 42.4 fL (35.1-43.9); Red Blood Count 5.21 Miln/mm3 (4.50-5.90); White Blood Count 16.2 Thou/mm3 (3.8-10.6)
[2024-11-26 06:32] LABS: Alanine Aminotransferase 21 U/L (10-49); Albumin, Serum 4.7 gm/dL (3.5-5.0); Albumin/Globulin Ratio 1.9 (1.2-2.2); Alkaline Phosphatase 80 U/L (46-116); Anion Gap 9 (7-16); Aspartate Amino Transferase 20 U/L (0-34); BUN/Creatinine Ratio 17 Ratio (12-20); Bilirubin,Total 0.5 mg/dL (0.3-1.2); Blood Urea Nitrogen 15 mg/dL (9-23); Calcium 9.8 mg/dL (8.3-10.6); Calcium (Corrected) 9.8 mg/dL (8.5-10.1); Carbon Dioxide 28.1 mMol/L (20.0-31.0); Chloride 103 mMol/L (98-107); Creatinine (Component) 0.9 mg/dL (0.6-1.3); Estimated Creatinine Clearance 121.5 mL/min (>60); Globulin 2.5 gm/dL (2.3-3.5); Glucose 136 mg/dL (74-106); Magnesium 2.8 mg/dL (1.6-2.6); Osmolality,Calculated 282 (275-295); Potassium 4.8 mMol/L (3.4-5.1); Sodium 140 mMol/L (136-145); Total Protein 7.2 gm/dL (5.7-8.2); eGFR > 60 See Note
[2024-11-26] MEDS: MethylPREDNISolone SOD SUCC 62.5 MG/ML 2ML VIAL 250 MG IVP (06:57)
[2024-11-26] MEDS: ROCURONIUM INJ 10 MG/ML VIAL 10 ML 100 MG IV (06:59)
[2024-11-26] MEDS: ETOMIDATE INJ 2 MG/ML VIAL 10 ML 35 MG IV (06:59)
--- NOTE | 2024-11-26 06:59 | ESCONSULT_ITS ---
<Statement entered by Seth Basurto MD - 11/28/24 09:41> TOTAL CC TIME: 45 MIN I saw and evaluated the patient. I reviewed the resident?s note and agree with findings and plan as documented in the resident?s note. Upon my evaluation, this patient had a high probability of imminent or life- threatening deterioration due to acute hypercapnic resp failure which required my direct attention, intervention, and personal management. This time is exclusive of time spent on procedures, which are documented separately if performed. EtCO2 wave form c/w obstructive lung disease - no severe airway obstruction adjusted TV to 6ml/kg - PEEP 8 without autopeep RR reduced allow permissive hypercpania - Pplt 19cm h20 duo neb hold steroids today (received high dose in am by ED provider) HPI Data of Consult Patient: new to practice Consult date: 11/26/24 Requesting Physician: Jason Gipson MD Admitting Provider: Jason Gipson MD Attending Provider: Jason Gipson MD Primary Care Provider: Physician No Primary/Family Consult Narrative Reason for consult: Failure of NIPPV History of present illness: HPI: At the time of interview patient was in severe distress, history obtained from chart review. 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 Patient was initially admitted to the floor for COPD exacerbation and started on BiPAP, DuoNebs Q3 hourly, azithromycin 500 mg IV daily and Solu-Medrol 40 mg IV Q8 hourly. Overnight patient had a rapid response called for hypertensive urgency with systolic blood pressures in the 200s, he received hydralazine 10 mg IV x 1 and labetalol 10 mg IV x 1. Subsequently he developed worsening tachypnea and was unable to comply with BiPAP. ABG at that time showed pH 7.35, pCO2 54. Patient was upgraded to the ICU at 6:42 AM and the decision was made to intubate. ED attending, Dr. De Leon was in attendance. At 6:59 AM, etomidate 25 mg IV x 1 and rocuronium 100 mg IV x 1 were given for RSI. At 7:02 AM magnesium sulfate 2 g IV x 1 was given over 20 minutes for bronchoconstriction as well. First attempt using video laryngoscope was unsuccessful and patient was subsequently bagged for 15 minutes. During this time Solu-Medrol 250 mg IV x 1 was given. Second attempt at intubation was successful at 7:22 AM. Post intubation chest x-ray confirmed placement of tube 5 cm above jocelyn, subsequently it was advanced by 2 cm. Patient will be upgraded to the ICU for acute respiratory failure with hypercarbia and hypoxia secondary to bronchoconstriction from COPD exacerbation and medication side effect. cc:: cc: Jason Gipson MD Review of Systems Review of Systems ROS Unobtainable: unobtainable due to mental status and due to endotracheal tube Past Medical History Past Medical History Comments PMH COMMENT: Past medical history: COPD Obesity class II Osteoarthritis of bilateral knees Medication list: Albuterol inhaler as needed Tiotropium inhaler metoprolol 25 mg p.o. 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 Smokes 1 pack a day ETHO use: Denies Illicit drug use: Denies Social History Note: lives alone. 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 Family History: No significant Exam Vital Signs Temp Pulse Resp BP Pulse Ox O2 Del Method O2 Flow Rate 96.9 F 95 34 H 160/117 H 94 L BiPAP 5 11/26/24 04:00 11/26/24 06:09 11/26/24 06:09 11/26/24 05:40 11/26/24 06:09 11/26/24 04:00 11/26/24 03:00 FiO2 40 11/26/24 06:09 Narrative Exam Constitutional Intubated and mechanically ventilated. HEENT PERRL. Patent nares. Trachea midline Respiratory Chest normal on inspection and mechanically ventilated lung sounds auscultated bilaterally. Cardiovascular S1 and S2 audible, RRR. No murmurs carotid bruit. No gross JVD. Abdominal Soft, obese and non tender to palpation in all quadrants. BS + Genitourinary No bladder tenderness, no flank pain. Normal to palpation Musculoskeletal Extremities tone within normal limits. Trace lower extremity edema bilaterally up to ankles Neurological CN II - XII grossly intact. Extremity motor and sensation grossly intact. Skin Warm, dry and intact. No apparent lesions. Psychiatric Chemically sedated Results Labs 11/26/24 05:34 11/26/24 05:34 Labs: Short CBC 11/25/24 11/26/24 Range/Units 12:23 05:34 WBC 24.9 H 16.2 H D (3.8-10.6) Thou/mm3 Hgb 14.4 15.5 (13.5-16.0) g/dL Hct 44.4 47.3 (41.0-53.0) % Plt Count 263 256 (140-440) Thou/mm3 BMP 11/25/24 11/26/24 12:34 05:34 Sodium 142 140 Potassium 4.3 4.8 D Chloride 105 103 Carbon Dioxide 27.4 28.1 BUN 10 15 Creatinine 0.9 0.9 Glucose 129 H 136 H Calcium 9.8 9.8 Cardiac Enzymes 11/25/24 Range/Units 12:34 Troponin I < 0.020 (0.0-0.045) ng/mL Liver Function 11/25/24 11/26/24 Range/Units 12:34 05:34 Total Bilirubin 0.4 0.5 (0.3-1.2) mg/dL AST 21 20 (0-34) U/L ALT 21 21 (10-49) U/L Alkaline Phosphatase 76 80 (46-116) U/L Albumin 4.5 4.7 (3.5-5.0) gm/dL ABG Interpretation ABG results: 11/25/24 11/26/24 16:33 03:30 ABG pH 7.40 7.35 ABG pCO2 44 54 H D ABG pO2 61 L 89 D ABG HCO3 28 H 30 H ABG O2 Saturation 92 97 ABG Base Excess 2 3 Quality Measures Quality Measures none Medications Home Medications and Allergies Home Medications ?Medication ?Instructions ?Recorded ?Confirmed ?Type metoprolol succinate 25 mg 25 mg PO QDAY 09/29/2311/08 History tablet,extended release 24 hr Allergies Allergy/AdvReac Type Severity Reaction Status Date / Time Penicillins Allergy Severe HIVES, Verified 02/27/24 02:19 EYES SWELL Sulfa (Sulfonamide Allergy Severe HIVES,EYES Verified 02/27/24 02:19 Antibiotics) SWELL Iodinated Contrast Media Allergy Unknown Anaphylaxis Verified 02/27/24 02:19 Visit Medications Acetaminophen (Acetaminophen 325 Mg Tablet) 650 mg PO Q6H PRN PRN Reason: Pain 1-3 and/or Fever >100.1 Stop: 12/25/24 16:04 Albuterol/Ipratropium (Albuterol/Ipratropium (Duoneb) Rt Keisha 3 Ml Nebu) 3 ml INH Q3HRRT RANDELL Stop: 12/25/24 16:44 Last Admin: 11/26/24 06:08 Dose: 3 ml Albuterol/Ipratropium (Albuterol/Ipratropium (Duoneb) Rt Ekisha 3 Ml Nebu) 3 ml INH Q2HR PRN PRN Reason: SHORTNESS OF BREATH OR WHEEZE Stop: 12/25/24 16:33 Last Admin: 11/26/24 04:30 Dose: 3 ml Azithromycin (Azithromycin 250 Mg Tablet) 250 mg PO QDAY RANDELL Stop: 12/03/24 08:59 Heparin Sodium (Porcine) (Heparin Sod Inj 5000 Unit/Ml Vial) 5,000 unit SC Q8HR RANDELL Stop: 12/09/24 21:59 Last Admin: 11/26/24 05:19 Dose: 5,000 unit Hydralazine HCl (Hydralazine Inj 20 Mg/Ml Vial) 10 mg IVP X1 PRN PRN Reason: BP>180/100 HR<85 Stop: 12/25/24 18:37 Magnesium Sulfate (Magnesium Sulfate Ivpb) 2 gm in 50 mls @ 25 mls/hr IV X1 ONE Stop: 11/26/24 08:26 Fentanyl Citrate (Sublimaze Inj 2,500 Mcg/250 Ml Bag) 2,500 mcg in 250 mls @ 2.5 mls/hr IV .Q24H PRN; Protocol PRN Reason: PER PROTOCOL Stop: 12/01/24 06:52 Losartan Potassium (Losartan Potassium 25 Mg Tablet) 50 mg PO QDAY RANDELL Stop: 12/26/24 08:59 Methylprednisolone Sodium Succinate (Methylprednisolone Sod Succ 40 Mg/Ml Vial) 40 mg IV Q8HR RANDELL Stop: 12/02/24 21:59 Last Admin: 11/26/24 05:45 Dose: 40 mg Fluticasone/Salmeterol (Fluticasone/Salmeterol 250/50 14 Dose Inh) 1 puff INH BIDRT RANDELL Stop: 12/25/24 18:59 Sodium Chloride (Sodium Chloride Rt Keisha 0.9% 3 Ml Nebu) 3 ml INH PRN PRN PRN Reason: SOLN Stop: 12/25/24 12:22 Last Admin: 11/25/24 12:31 Dose: 3 ml Discontinued Medications Acetaminophen (Acetaminophen 325 Mg Tablet) 650 mg PO Q6H PRN PRN Reason: Fever >101.5 Stop: 12/25/24 16:04 Albuterol (Albuterol Rt 2.5 Mg/0.5 Ml Nebu) 10 mg INH X1 ONE Stop: 11/25/24 12:24 Last Admin: 11/25/24 12:30 Dose: 10 mg Albuterol (Albuterol Rt 2.5 Mg/0.5 Ml Nebu) 2.5 mg INH Q4HRRT RANDELL Stop: 12/25/24 18:59 Albuterol (Albuterol Rt 25 Mg/5 Ml Nebu) 10 mg INH X1 ONE Stop: 11/26/24 06:26 Albuterol/Ipratropium (Albuterol/Ipratropium (Duoneb) Rt Keisha 3 Ml Nebu) 3 ml INH X1 ONE Stop: 11/25/24 13:47 Last Admin: 11/25/24 14:08 Dose: 3 ml Albuterol/Ipratropium (Albuterol/Ipratropium (Duoneb) Rt Keisha 3 Ml Nebu) 3 ml INH Q4HRRT [facility] Stop: 12/25/24 18:59 Etomidate (Etomidate Inj 2 Mg/Ml Vial 10 Ml) 35 mg IV X1 ONE Stop: 11/26/24 06:53 Furosemide (Furosemide Inj 10 Mg/Ml 4ml Vial) 40 mg IVP X1 ONE Stop: 11/25/24 18:42 Last Admin: 11/25/24 19:14 Dose: 40 mg Guaifenesin (Guaifenesin Syrup 200 Mg/10 Ml Udc) 100 mg PO X1 ONE; Protocol Stop: 11/25/24 16:55 Last Admin: 11/25/24 17:25 Dose: Not Given Hydralazine HCl (Hydralazine Inj 20 Mg/Ml Vial) 10 mg IVP X1 PRN PRN Reason: hypertension Stop: 12/25/24 18:37 Hydralazine HCl (Hydralazine Inj 20 Mg/Ml Vial) 10 mg IVP X1 ONE Stop: 11/26/24 05:31 Last Admin: 11/26/24 05:40 Dose: 10 mg Magnesium Sulfate (Magnesium Sulfate Ivpb) 2 gm in 50 mls @ 25 mls/hr IV X1 ONE Stop: 11/25/24 14:28 Last Infusion: 11/25/24 16:02 Dose: Infused Azithromycin 500 mg/ Sodium (Chloride) 250 mls @ 250 mls/hr IV X1 ONE Stop: 11/25/24 17:08 Last Admin: 11/25/24 16:39 Dose: 250 mls/hr Ipratropium [place] (Ipratropium Rt 0.5 Mg/ 2.5 Ml Nebu) 1 mg INH X1 ONE Stop: 11/25/24 12:24 Last Admin: 11/25/24 12:31 Dose: 1 mg Labetalol HCl (Labetalol Inj 5 Mg/Ml Vial 20 Ml) 10 mg IVP X1 ONE Stop: 11/25/24 16:23 Last Admin: 11/25/24 16:39 Dose: 10 mg Labetalol HCl (Labetalol Inj 5 Mg/Ml Vial 20 Ml) 10 mg IVP X1 ONE Stop: 11/25/24 22:03 Labetalol HCl (Labetalol Inj 5 Mg/Ml Vial 20 Ml) 10 mg IVP X1 ONE Stop: 11/26/24 04:23 Last Admin: 11/26/24 04:40 Dose: 10 mg Lisinopril (Lisinopril 2.5 Mg Tablet) 10 mg PO QDAY [facility] Stop: 12/26/24 08:59 Losartan Potassium (Losartan Potassium 25 Mg Tablet) 25 mg PO QDAY RANDELL Stop: 12/26/24 08:59 Losartan Potassium (Losartan Potassium 25 Mg Tablet) 50 mg PO X1 ONE Stop: 11/25/24 17:04 Last Admin: 11/25/24 18:08 Dose: 50 mg Methylprednisolone Sodium Succinate (Methylprednisolone Sod Succ 62.5 Mg/Ml 2ml Vial) 125 mg IVP X1 ONE Stop: 11/25/24 12:24 Last Admin: 11/25/24 12:52 Dose: 125 mg Nicotine (Nicotine Patch 7 Mg/24 Hr Patch.Td24) 7 mg TOP X1 ONE Stop: 11/25/24 18:29 Last Admin: 11/25/24 19:15 Dose: Not Given Rocuronium [place] (Rocuronium Inj 10 Mg/Ml Vial 10 Ml) 100 mg IV X1 ONE Stop: 11/26/24 06:53 Sodium Chloride (Sodium Chloride Rt Keisha 0.9% 3 Ml Nebu) 3 ml INH PRN PRN PRN Reason: SOLN Stop: 12/25/24 16:11 Assessment & Plan Plan Patient is a 54-year-old male with a past medical history significant for COPD not on home oxygen, chronic nicotine dependence, 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 Patient will be upgraded to the ICU for acute respiratory failure with hypercarbia and hypoxia secondary to bronchoconstriction from COPD exacerbation and medication side effect. NEURO Chemical sedation Rx: ?Fentanyl and propofol IV for RASS goal of -2 RRx: ? For SAT tomorrow morning CVS Hypertensive urgency. Patient was hypertensive with peak systolic blood pressure being in the 240s even prior to intubation. DDx: Agitation, pain, COPD exacerbation, nebulizers Dx: -This a.m. SBPs were in 220s-240s Rx: -Vasotec 2.5 mg IV x 1 RRX: - For SBP >180, Vasotec 0.625 mg IV x 1 as needed PULM Acute respiratory failure with hypoxia and hypercarbia secondary to bronchoconstriction in setting of COPD exacerbation and medication side effect Patient presented with worsening shortness of breath over the past 3 days and was initially on BiPAP with DuoNebs every 4 hourly. This morning patient received labetalol IV after which she developed worsening tachypnea and dyspnea unamenable to BiPAP and requiring subsequent intubation and mechanical ventilation. DDx: Secondary to nonselective beta-piotr use, COPD exacerbation, occupational exposure Dx: ? Chest x-ray showed hyperexpanded lung [place] with increased reticular markings bilaterally. - pH 7.35?>7.26 ? pCO2 54?>68 - D-dimer <250 Rx: - AC/VC with permissive hypercapnia - Continue azithromycin 250 mg IV daily started on [11/25? ? Started on ceftriaxone 1 g IV daily on [11/26? ? Prednisone 60 mg p.o. daily to start on 11/27 RRX: ? Repeat ABG at 7 PM, once pH greater than or equal to 7.25, will continue with permissive hypercapnia for lung protective ventilation. GI/Hep Tube Feeds: 1. Vital 1.2 at 20 ml/hr via OG tube by pump. Advance 10 ml every 8 hrs to goal rate of 45 ml/hr x 24 hrs. If no IV fluids, water flushes of 30 ml/hr (or per MD). 2. ProStat 30ml TID via OG tube. - Registered dietitian consulted. Appreciate recommendation RENAL No acute problems HEME/ONC Leukocytosis DDx: Steroids, reactive, bacterial pneumonia Dx: - WBC 16.2 Rx: - Monitor on CBC ENDO Prediabetic Dx: - 2023 ?HbA1c 6.2% Rx: - HbA1c ordered RRX: - Glucose checks Q6 hourly after tube feeds are started. ID No acute problems MSK/DERM No acute problems ICU Health maintenance: Dispo: Admit to ICU for mechanical ventilation. Diet: TUbe feeds via OGT DVT ppx: Enoxaparin 40 mg SC twice daily GI ppx: Protonix 40mg qD Mechanical ventilattion: Yes, Mode: ACVC Sedation: Yes, Fentanyl , propofol (RAAS - 3) IV lines: 2 pIV Central line: No Arterial line: No Long: No Code status: FULL CODE Plan of care discussed with Attending Dr. Sb Ambriz MD PGY 2 Disclaimer: This note was dictated by speech recognition. Minor errors in engraving operator may be present due to voice recognition software.
--- NOTE | 2024-11-26 07:01 | XR_ITS ---
Examination: AP chest single view Technique one AP portable supine chest single view Date and time: November 26, 2024 0730 hrs., Comparison 11/25/2024 Indications: Hypoxic respiratory failure, postintubation, post orogastric tube placement Findings: Normal heart size. Endotracheal tube tip 5.7 cm above jocelyn. Orogastric tube is in the stomach, the tip is below level of the film. No pneumonia or pulmonary edema Impression: Endotracheal tube tip 5.7 cm above jocelyn. The orogastric tube is in the stomach, the tip is below the level of the film
--- NOTE | 2024-11-26 07:04 | PC.NURSE ---
Patient's contact finger assembler, Luli, was made aware via telephone that patient was transferred to ICU.
[2024-11-26] MEDS: Magnesium Sulfate 2 GM Ivpb 2 GM/50 ML BAG IV (07:17)
[2024-11-26] MEDS: fentaNYL 2,500 MCG/250 ML BAG 2,500 MCG/250 ML BAG IV (07:18)
[2024-11-26] MEDS: PROPOFOL 1,000 MG IVPB 1,000 MG/100 ML VIAL 3.606 MG IV (07:18)
--- NOTE | 2024-11-26 07:32 | ESOP_ITS ---
PROCEDURES: Procedure Date / Time 11/26/24 0732 Intubation Indication(s): acute Resp Failure and inability to protect airway Informed consent obtained: from patient Time out done, and the following verified: correct patient, side and site, procedure, patient position and implants and/or equipment Sedative: etomidate Mg given: 35 Paralytic: rocuronium Mg given: 100 Laryngoscope: fiber optic video scope Assist device used: Bougie ET tube size: 7.5 ET tube uncuffed: Yes Tube secured depth (cm): 23 Tube secured location: lips Tube placement confirmation: visualized tube passing through cords, equal breath sounds bilaterally and confirmation by capnometry Patient tolerated procedure: well EBL(ml): 1 Intubation complications: difficult intubation Additional comments: A time out was performed. My hands were washed immediately prior to the procedure. I wore a surgical cap, mask with protective gloves throughout the procedure. The patient was placed on a cardiac rehabilitation specialist including continuous pulse oximetry. Rapid Sequence Intubation was conducted. The patient received 35 mg of etomidate for induction and 100 mg of rocuronium for adequate paralysis. Cricoid pressure was maintained from time induction agent was given to time of cuff balloon inflation. Usin laryngoscope and a size 7.5 endotracheal tube with stylet, the patient was intubated on the second attempt. The stylet was removed and cuff balloon was inflated. Appropriate endotracheal tube position was confirmed by direct visualization of vocal cord passage, fogging of the tube, CO2 colormetric indicator and symmetric breath sounds. The tube was secured at 23 cm at the lips. Post intubation chest x-ray is pending at this time. Case was discussed with attending physician. Angelo Oropeza DO PGY II This document was transcribed using voice recognition technology. Minor inaccuracies may be present.
--- NOTE | 2024-11-26 07:38 | PC.NURSE ---
LOAN EXPEDITOR called due to concern of patient having increased work of breathing. pt transferred to ICU for intubation.
--- NOTE | 2024-11-26 07:44 | PC.RT ---
upon RT arrival pt found to have increased WOB on bipap, scheduled tx given immediately, md contacted to request order for continuous tx, unable to contact md, rapid response called by rn, pt upgraded to ICU, ICU RT notified and pt transferred.
[2024-11-26] MEDS: ENALAPRILAT INJ 1.25 MG/ML VIAL 2.5 MG IVP (08:06)
[2024-11-26] MEDS: fentaNYL CIT INJ 50 mCg/ML AMP 2ML IVP (08:22)
[2024-11-26 09:04] LABS: Base Excess 1 (-3-3); HCO3 30 mEq/L (20-26); Inspired Oxygen, FIO2 70 %; O2 Saturation 98 % (91-98); PCO2 68 mmHg (32.0-48.0); PO2 118 mmHg (83-108); pH, Arterial 7.26 (7.35-7.45)
[2024-11-26 09:06] LABS: Allen Test Performed/OK; Puncture Site Right Radial
[2024-11-26] MEDS: cefTRIAXone/D5w 1gm IV premix 1 GM/50 ML BAG IV (09:24)
[2024-11-26] MEDS: AZITHROMYCIN INJ 250 MG, Sterile Water 2.5 ML in SODIUM CHLORIDE 0.9% 250 ML 250 ML 252.5 MG IV (09:54)
--- NOTE | 2024-11-26 11:07 | PC.DIETICIAN ---
Nutrition prescription 1. Vital 1.2 at 20 ml/hr via OG tube by pump. Advance 10 ml every 8 hrs to goal rate of 45 ml/hr x 24 hrs. If no IV fluids, water flushes of 30 ml/hr (or per MD). 2. ProStat 30ml TID via OG tube.
--- NOTE | 2024-11-26 11:12 | PC.SS ---
UNLEAVENED DOUGH MIXER met with patient's maternal nephew, Ancelmo Estrada ; at patient's bedside. Nephew stating that patient's sister, Kathryn Gonzalez ; requesting to be identified as patient's surrogate medical decision maker. UNLEAVENED DOUGH MIXER conducted phone contact with patient's sister to confirm request. Patient's sister confirmed request with UNLEAVENED DOUGH MIXER. UNLEAVENED DOUGH MIXER discussed with patient's sister role of surrogate medical decision maker and need to be available by phone if emergent situation arises. Patient's sister acknowledged role/responsibility of medical decision designation. UNLEAVENED DOUGH MIXER informed Ms. Gonzalez that UNLEAVENED DOUGH MIXER will reach out to Kalpana Jonas to confirm designating Ms. Gonzalez as patient's surrogate medical decision maker. UNLEAVENED DOUGH MIXER contacted patient's listed surrogate medical decision, Kalpana Jonas and discussed Ms. Gonzalez's request. Kalpana Jonas confirmed with UNLEAVENED DOUGH MIXER that Kathryn Gonzalez will be designated as the patient's surrogate medical decision maker. UNLEAVENED DOUGH MIXER updated ICU resident, bedside nurse and nurse staff community health.
[2024-11-26 11:33] LABS: Cocci Serology, IgM Negative (Negative)
[2024-11-26] MEDS: PROPOFOL 1,000 MG IVPB 1,000 MG/100 ML VIAL 18.03 MG IV ×2 (12:45→15:53)
[2024-11-26 13:00] LABS: Base Excess 1 (-3-3); HCO3 30 mEq/L (20-26); Inspired Oxygen, FIO2 50 %; O2 Saturation 95 % (91-98); PCO2 68 mmHg (32.0-48.0); PO2 81 mmHg (83-108); pH, Arterial 7.25 (7.35-7.45)
[2024-11-26 13:01] LABS: Allen Test Performed/OK; Puncture Site Right Radial
[2024-11-26] MEDS: NICOTINE PATCH 21 MG/24 HR PATCH.TD24 TOP (15:55)
[2024-11-26] MEDS: fentaNYL 2,500 MCG/250 ML BAG 2,500 MCG/250 ML BAG 22.5 MCG IV (19:20)
[2024-11-26 19:29] LABS: Allen Test Performed/OK; Base Excess 1 (-3-3); HCO3 30 mEq/L (20-26); Inspired Oxygen, FIO2 50 %; O2 Saturation 90 % (91-98); PCO2 64 mmHg (32.0-48.0); PO2 62 mmHg (83-108); Puncture Site Right Brachial; pH, Arterial 7.27 (7.35-7.45)
[2024-11-26] MEDS: ENOXAPARIN SOD INJ 40 MG/0.4 ML SYRINGE SC (20:06)
[2024-11-26] MEDS: Norepinephrine/D5W 8mg/250ml 8 MG/250 ML BAG 11.269 MG IV (20:24)
[2024-11-26] MEDS: PROPOFOL 1,000 MG IVPB 1,000 MG/100 ML VIAL 21.636 MG IV (21:18)
[2024-11-27] VITALS (50 sets, daily range): BP systolic 71–147; BP diastolic 43–86; PULSE 74–99; RESP 14–39; TEMP 36.6–37.1; O2SAT 94–100
[2024-11-27] MEDS: PROPOFOL 1,000 MG IVPB 1,000 MG/100 ML VIAL 25.242 MG IV ×3 (01:28→10:00)
[2024-11-27] MEDS: ALBUTEROL/IPRATROPIUM (Duoneb) RT SOL 3 ML NEBU INH ×11 (02:17→23:02)
[2024-11-27 05:07] LABS: Base Excess 1 (-3-3); HCO3 30 mEq/L (20-26); Inspired Oxygen, FIO2 21 %; O2 Saturation 95 % (91-98); PCO2 67 mmHg (32.0-48.0); PO2 77 mmHg (83-108); pH, Arterial 7.26 (7.35-7.45)
[2024-11-27 05:08] LABS: Allen Test Performed/OK; Puncture Site Right Brachial
[2024-11-27 05:39] LABS: Basophils # (Auto) 0.0 Thou/mm3 (0.0-0.2); Basophils % (Auto) 0 % (0-2.5); Eosinophils # (Auto) 0.0 Thou/mm3 (0.0-0.5); Eosinophils % (Auto) 0 % (0-10); Hematocrit 42.6 % (41.0-53.0); Hemoglobin 13.7 g/dL (13.5-16.0); Immature Granulocytes Auto 0.25 Thou/mm3 (0.00-0.00); Lymphocytes # (Auto) 0.9 Thou/mm3 (1.0-4.8); Lymphocytes % (Auto) 4 % (10-50); Mean Corpuscular HGB Conc 32.2 g/dl (31.0-37.0); Mean Corpuscular Hemoglobin 30.0 pg (25.0-35.0); Mean Corpuscular Volume 93 fL (80-100); Monocytes # (Auto) 2.4 Thou/mm3 (0.0-0.8); Monocytes % (Auto) 11 % (0-12); Neutrophils # (Auto) 18.8 Thou/mm3 (1.8-7.7); Neutrophils % (Auto) 84 % (37-80); Nucleated Red Blood Cell # 0.00 Thou/mm3 (0.00-0.00); Nucleated Red Blood Cell % 0 /100 WBC (0); Platelet Count 224 Thou/mm3 (140-440); RDW Standard Deviation 44.4 fL (35.1-43.9); Red Blood Count 4.56 Miln/mm3 (4.50-5.90); White Blood Count 22.4 Thou/mm3 (3.8-10.6)
[2024-11-27 05:57] LABS: Albumin, Serum 3.9 gm/dL (3.5-5.0); Anion Gap 10 (7-16); BUN/Creatinine Ratio 16 Ratio (12-20); Blood Urea Nitrogen 39 mg/dL (9-23); Calcium 8.9 mg/dL (8.3-10.6); Calcium (Corrected) 9.0 mg/dL (8.5-10.1); Carbon Dioxide 28.8 mMol/L (20.0-31.0); Cardiac Risk Estimate 3.0 RATIO (4.0-6.7); Chloride 102 mMol/L (98-107); Cholesterol 176 mg/dL (132-200); Creatinine (Component) 2.5 mg/dL (0.6-1.3); Estimated Creatinine Clearance 43.1 mL/min (>60); Glucose 112 mg/dL (74-106); HDL Cholesterol 58 mg/dL (40-60); LDL Cholesterol,Calculated 80 mg/dL (0-130); Magnesium 3.3 mg/dL (1.6-2.6); Osmolality,Calculated 291 (275-295); Phosphorous 7.4 mg/dL (2.4-5.1); Potassium 4.7 mMol/L (3.4-5.1); Sodium 141 mMol/L (136-145); Thyroid Stimulating Hormone 0.75 uIU/mL (0.55-4.78); Triglycerides 189 mg/dL (30-150); eGFR 30 See Note
[2024-11-27 05:58] LABS: Glucose Estimated Average 123 mg/dL (80-131); Hemoglobin A1C 5.9 % Hgb (4.8-6.0)
--- NOTE | 2024-11-27 07:57 | ECHO_ITS ---
Transthoracic Echo Report Ht (in): 68 Wt (lb): 265 Exam Location: Echo Lab Status: Inpatient Mds Nurse: Molly White Indications: Procedure Performed: BP: 153 / 89 HR: 112 MEASUREMENTS (Male / Female) Normal Values 2D ECHO LV Diastolic Diameter PLAX 5.8 cm 4.2 - 5.9 / 3.9 - 5.3 cm LV Systolic Diameter PLAX 4.2 cm IVS Diastolic Thickness 1.0 cm 0.6 - 1.0 / 0.6 - 0.9 cm LVPW Diastolic Thickness 1.2 cm 0.6 - 1.0 / 0.6 - 0.9 cm LV Relative Wall Thickness 0.4 LVOT Diameter 2.1 cm Ascending Aorta Diameter 3.7 cm M-MODE AV Cusp Separation MM 2.3 cm FINDINGS Left Ventricle The left ventricle is not well visualized. The left ventricular ejection fraction is estimated at 40-45%. Right Ventricle The right ventricle not well visualized. Left Atrium Normal left atrial size. Right Atrium No right atrial thrombus or mass seen. Aorta The aortic root and proximal ascending aorta are not well visualized. Other Findings Limited exam due to patient being hysterical and took off leads and tubes. came in and stopped exam CONCLUSIONS Indication: cardiomegaly Left ventricle size and function appears normal but suboptimal study. Estimated ejection fraction appears to be 50 to 55%. I did valve and mitral valve will appear to be normal without any major regurgitation. Possible trace AI. Short axis as well as apical or subcostal views were not obtained. Could not complete exam due to patient being hysterical and took off leads and tubes. came in and stopped exam Malachi Gonzáles (Electronically Signed) Final Date: 29 November 2024 15:55
[2024-11-27] MEDS: fentaNYL 2,500 MCG/250 ML BAG 2,500 MCG/250 ML BAG 12.5 MCG IV (08:00)
--- NOTE | 2024-11-27 08:24 | PD.INTPROG ---
Documentation for date of: 11/27/24 Subjective Subjective Interval history: This is a 54yo M who presented to the hospital on 25 November. He initially presented for shortness of breath and COPD exacerbation. He decompensated and ultimately required intubation early in the morning of the . He was intubated and sedated and brought over to the ICU. There were no acute overnight events. He was straight cathed for 600 cc overnight. He remains afebrile. Critical Care Note Critical care time (min.): 40 Exam Vital Signs Temp Pulse Resp BP Pulse Ox O2 Del Method O2 Flow Rate 98.1 F 83 24 H 82/62 L 99 Mechanical Ventilation 5 11/27/24 04:00 11/27/24 07:00 11/27/24 06:12 11/27/24 07:00 11/27/24 07:00 11/27/24 04:00 11/26/24 03:00 FiO2 50 11/27/24 06:12 Narrative Exam General-intubated, sedated, obese, no acute distress HEENT-normocephalic, atraumatic, sclera anicteric, oral mucosa is hydrated, ET tube in place, OG tube in place Chest-diffuse expiratory wheezes throughout anterior and posterior segovia, slightly tachypneic without increased work of breathing, heart rate regular rhythmic, no gross murmurs auscultated on exam, no use of accessory muscles Abdomen-obese, soft, nontender, bowel sounds present, no rebound or guarding Extremities-no edema, pulses palpable, no clubbing or cyanosis, no mottling Vent AC/VC Drips Fentanyl Propofol Physical Exam Completion Physical Exam Complete?: Yes 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 11/28/24 04:46 11/28/24 04:46 Labs: Laboratory Results - last 24 hr 11/26/24 11/26/24 11/26/24 05:34 08:50 12:45 WBC RBC Hgb Hct MCV MCH MCHC RDW Std Deviation Plt Count Neut % (Auto) Lymph % (Auto) [place] % (Auto) Eos % (Auto) Baso % (Auto) Neut # (Auto) Lymph # (Auto) [place] # (Auto) Eos # (Auto) Baso # (Auto) Immature Gran # (Auto) Absolute Nucleated RBC Immature Gran % Nucleated RBC % Puncture Site Right Radial Right Radial ABG pH 7.26 L 7.25 L ABG pCO2 68 H D 68 H ABG pO2 118 H D 81 L D ABG HCO3 30 H 30 H ABG O2 Saturation 98 95 ABG Base Excess 1 1 FiO2 70 50 Sodium Potassium Chloride Carbon Dioxide Anion Gap BUN Creatinine Estim Creat Clear Calc eGFR BUN/Creatinine Ratio Glucose Estimated Ave Glu mg/dL Hemoglobin A1c Calculated Osmolality Calcium Corrected Calcium Phosphorus Magnesium Albumin Triglycerides Cholesterol LDL Cholesterol, Calc HDL Cholesterol Cholesterol/HDL Ratio TSH Coccidioides IgM Ab Negative 11/26/24 11/27/24 11/27/24 19:23 04:39 04:53 WBC 22.4 H D RBC 4.56 Hgb 13.7 Hct 42.6 MCV 93 MCH 30.0 MCHC 32.2 RDW Std Deviation 44.4 H Plt Count 224 D Neut % (Auto) 84 H Lymph % (Auto) 4 L [place] % (Auto) 11 Eos % (Auto) 0 Baso % (Auto) 0 Neut # (Auto) 18.8 H Lymph # (Auto) 0.9 L [place] # (Auto) 2.4 H Eos # (Auto) 0.0 Baso # (Auto) 0.0 Immature Gran # (Auto) 0.25 H Absolute Nucleated RBC 0.00 Immature Gran % 1 H Nucleated RBC % 0 Puncture Site Right Brachial Right Brachial ABG pH 7.27 L 7.26 L ABG pCO2 64 H 67 H ABG pO2 62 L 77 L ABG HCO3 30 H 30 H ABG O2 Saturation 90 L 95 ABG Base Excess 1 1 FiO2 50 21 Sodium 141 Potassium 4.7 Chloride 102 Carbon Dioxide 28.8 Anion Gap 10 BUN 39 H Creatinine 2.5 H D Estim Creat Clear Calc 43.1 L eGFR 30 L BUN/Creatinine Ratio [address] Glu mg/dL 123 Hemoglobin A1c 5.9 Calculated Osmolality 291 Calcium 8.9 Corrected Calcium 9.0 Phosphorus 7.4 H Magnesium 3.3 H Albumin 3.9 D Triglycerides 189 H Cholesterol 176 LDL Cholesterol, Calc 80 HDL Cholesterol 58 Cholesterol/HDL Ratio 3.0 L TSH 0.75 Coccidioides IgM Ab Assessment & Plan Additional Plan Additional Plan: In brief this is a 54-year-old male admitted to the ICU for acute respiratory distress secondary to COPD currently 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 CV HTN- currently controlled - prn as needed Resp Acute Resp Failure- 2/2 COPDE, currently ABG shows some respiratory acidosis, will adjust vent, fu with CXR - repeat ABG COPDE- currently on nebs and steroids, significant active wheezing - on ceftri/azithro - pred 60mg Renal BLOSSOM- pts BP is also borderline - may be due to volume depletion - given bolus of fluid - monitor i/os - avoid nephrotoxins GI GI proph- PPI Endo stable Heme Leukoctyosis- likely 2/2 steroids, afebrile DVT proph- lovenox ID stable case d/w ICU team labs, imaging, records reviewed ~40ccmin required for eval, exam, review, intervention, discussion and formulation of POC for this critically ill pt with acute resp failure currently intubated and on MV Provider Notation Provider Notation: Although this document has been carefully reviewed, there may still be some phonetic and other typographical errors. These errors are purely grammatical due to imperfections in the software program and should not be construed in any way to compromise the substance of the patient's medical care during this visit. Thank you for the opportunity and privilege in assisting you with this patient's care and management.
[2024-11-27] MEDS: cefTRIAXone/D5w 1gm IV premix 1 GM/50 ML BAG IV (08:52)
[2024-11-27] MEDS: ENOXAPARIN SOD INJ 40 MG/0.4 ML SYRINGE SC ×2 (08:52→20:14)
[2024-11-27] MEDS: AZITHROMYCIN INJ 250 MG, Sterile Water 2.5 ML in SODIUM CHLORIDE 0.9% 250 ML 250 ML 252.5 MG IV (08:53)
[2024-11-27] MEDS: NICOTINE PATCH 21 MG/24 HR PATCH.TD24 TOP (08:55)
[2024-11-27 10:02] LABS: Base Excess 1 (-3-3); HCO3 30 mEq/L (20-26); Inspired Oxygen, FIO2 40 %; O2 Saturation 96 % (91-98); PCO2 63 mmHg (32.0-48.0); PO2 81 mmHg (83-108); pH, Arterial 7.28 (7.35-7.45)
[2024-11-27 10:04] LABS: Allen Test Performed/OK; Puncture Site Right Brachial
--- NOTE | 2024-11-27 10:26 | ESPR_ITS ---
<Statement entered by Samuel Andres MD - 11/27/24 15:22> Senior Resident Attestation: I supervised/discussed management plan with fall intern physician Dr. Miller, and was involved in the care of this patient. I personally saw and examined the patient and discussed the assessment and plan with the entire medicine team, including my attending. I agree with the assessment and plan as documented. Patient was seen and examined at the bedside. He remains on volume control mode, her vent settings were adjusted in the morning and repeat ABG showed improvement in his acidosis and CO2 status. On physical exam patient has bilateral wheezing and prolonged expiration with increased work of breathing therefore DuoNebs was rescheduled to every 2 hours. Attempt to reduce sedation by discontinuing fentanyl because patient being agitated therefore fentanyl was resumed. His creatinine today 2.5, likely due to rapid blood pressure correction yesterday and decrease fluid input. He was given 2 500 cc boluses of free water flushes and his water flushes were increased to 100 cc/h. Will continue current management and reassess patient tomorrow morning for possible SBT. Patient's care was discussed with attending physician, Dr. Mcdermott. Samuel Andres MD PGY-3. Documentation for date of: 11/27/24 Subjective Subjective Interval history: At the time of interview patient was in severe distress, history obtained from chart review. 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 Patient was initially admitted to the floor for COPD exacerbation and started on BiPAP, DuoNebs Q3 hourly, azithromycin 500 mg IV daily and Solu-Medrol 40 mg IV Q8 hourly. Overnight patient had a rapid response called for hypertensive urgency with systolic blood pressures in the 200s, he received hydralazine 10 mg IV x 1 and labetalol 10 mg IV x 1. Subsequently he developed worsening tachypnea and was unable to comply with BiPAP. ABG at that time showed pH 7.35, pCO2 54. Patient was upgraded to the ICU at 6:42 AM and the decision was made to intubate. ED attending, Dr. De Leon was in attendance. At 6:59 AM, etomidate 25 mg IV x 1 and rocuronium 100 mg IV x 1 were given for RSI. At 7:02 AM magnesium sulfate 2 g IV x 1 was given over 20 minutes for bronchoconstriction as well. First attempt using video laryngoscope was unsuccessful and patient was subsequently bagged for 15 minutes. During this time Solu-Medrol 250 mg IV x 1 was given. Second attempt at intubation was successful at 7:22 AM. Post intubation chest x-ray confirmed placement of tube 5 cm above jocelyn, subsequently it was advanced by 2 cm. Patient will be upgraded to the ICU for acute respiratory failure with hypercarbia and hypoxia secondary to bronchoconstriction from COPD exacerbation and medication side effect. Interval History 11/27/24: Overnight, patient was straight-cathed for 600 mL. Patient was examined at bedside; they remain intubated on AC/VC mode and sedated with fentanyl and propofol. On physical exam, a prolonged expiratory phase with significant wheezing is appreciated on auscultation of anterior lung segovia but the remainder of the exam was unremarkable. Notable labs today include WBC bump to 22.4 from 16.2 (patient is taking steroids and has been afebrile), BUN bump to 39 from 15, creatinine bump to 2.5 from 0.9, phosphorus 7.4 and magnesium 3.3. Ventilator settings were adjusted today to see if patient's respiratory status would improve under different conditions and a repeat ABG showed mild improvement (pH 7.26->7.28, pCO2 67->63, pO2 77->81, HCO3 30->30). Due to patient's significant wheezing on lung auscultation, administration of DuoNeb waas increased to q2HR scheduled. An attempt to reduce patient's sedation regimen today resulted in increased agitation and blood pressure elevation so the degree of weaning was dialed back. In terms of patient's new BLOSSOM today, the working theory is that it is either from the aggressive BEKA-inhibitor treatment he received upon admission or prerenal 2/2 intravascular depletion. To treat the BLOSSOM, patient was given a 500 mL bolus of free water and the rate of water flushes w/ tube feeding was increased from 30 mL/hr to 100 mL/hr with plans to continue monitoring his urinary output to assess hydration status and kidney function. Moving forward, patient's respiratory status will continue to be monitored for timely extubation as he continues on DuoNeb, prednisone, and antibiotics (azithromycin + ceftriaxone). Exam Vital Signs Temp Pulse Resp BP Pulse Ox O2 Del Method O2 Flow Rate 98.1 F 82 20 82/62 L 99 Mechanical Ventilation 5 11/27/24 04:00 11/27/24 09:30 11/27/24 09:30 11/27/24 07:00 11/27/24 09:30 11/27/24 04:00 11/26/24 03:00 FiO2 50 11/27/24 09:30 Narrative Exam Constitutional Obese male, intubated and mechanically ventilated on volume control. Sedated with fentanyl and propofol. HEENT Normocephalic, atraumatic, sclera anicteric, ET tube and OG tube in place. Respiratory Prolonged expiratory phase with significant wheezing appreciated on auscultation of anterior lung segovia. No increased work of breathing or use of accessory muscles observed. Cardiovascular S1 and S2 audible, RRR. No murmurs appreciated. No gross JVD. Abdominal Soft, non-tender to palpation in all quadrants. No palpable masses, rebound tenderness, or guarding. Bowel sounds present Genitourinary Penis is circumcised with Long catheter in place. No bladder tenderness. Extremities No edema, no clubbing, and no cyanosis appreciated. Skin Warm, dry and intact. No apparent lesions. Psychiatric Chemically sedated Objective Labs 11/27/24 04:39 11/27/24 14:15 Labs: Laboratory Results - last 24 hr 11/26/24 11/26/24 11/26/24 05:34 12:45 19:23 WBC RBC Hgb Hct MCV MCH MCHC RDW Std Deviation Plt Count Neut % (Auto) Lymph % (Auto) [place] % (Auto) Eos % (Auto) Baso % (Auto) Neut # (Auto) Lymph # (Auto) [place] # (Auto) Eos # (Auto) Baso # (Auto) Immature Gran # (Auto) Absolute Nucleated RBC Immature Gran % Nucleated RBC % Puncture Site Right Radial Right Brachial ABG pH 7.25 L 7.27 L ABG pCO2 68 H 64 H ABG pO2 81 L D 62 L ABG HCO3 30 H 30 H ABG O2 Saturation 95 90 L ABG Base Excess 1 1 FiO2 50 50 Sodium Potassium Chloride Carbon Dioxide Anion Gap BUN Creatinine Estim Creat Clear Calc eGFR BUN/Creatinine Ratio Glucose Estimated Ave Glu mg/dL Hemoglobin A1c Calculated Osmolality Calcium Corrected Calcium Phosphorus Magnesium Albumin Triglycerides Cholesterol LDL Cholesterol, Calc HDL Cholesterol Cholesterol/HDL Ratio TSH Coccidioides IgM Ab Negative 11/27/24 11/27/24 11/27/24 04:39 04:53 09:52 WBC 22.4 H D RBC 4.56 Hgb 13.7 Hct 42.6 MCV 93 MCH 30.0 MCHC 32.2 RDW Std Deviation 44.4 H Plt Count 224 D Neut % (Auto) 84 H Lymph % (Auto) 4 L [place] % (Auto) 11 Eos % (Auto) 0 Baso % (Auto) 0 Neut # (Auto) 18.8 H Lymph # (Auto) 0.9 L [place] # (Auto) 2.4 H Eos # (Auto) 0.0 Baso # (Auto) 0.0 Immature Gran # (Auto) 0.25 H Absolute Nucleated RBC 0.00 Immature Gran % 1 H Nucleated RBC % 0 Puncture Site Right Brachial Right Brachial ABG pH 7.26 L 7.28 L ABG pCO2 67 H 63 H ABG pO2 77 L 81 L ABG HCO3 30 H 30 H ABG O2 Saturation 95 96 ABG Base Excess 1 1 FiO2 21 40 Sodium 141 Potassium 4.7 Chloride 102 Carbon Dioxide 28.8 Anion Gap 10 BUN 39 H Creatinine 2.5 H D Estim Creat Clear Calc 43.1 L eGFR 30 L BUN/Creatinine Ratio 16 [address] Glu mg/dL 123 Hemoglobin A1c 5.9 Calculated Osmolality 291 Calcium 8.9 Corrected Calcium 9.0 Phosphorus 7.4 H Magnesium 3.3 H Albumin 3.9 D Triglycerides 189 H Cholesterol 176 LDL Cholesterol, Calc 80 HDL Cholesterol 58 Cholesterol/HDL Ratio 3.0 L TSH 0.75 Coccidioides IgM Ab ABG Interpretation ABG results: 11/25/24 11/26/24 11/26/24 16:33 03:30 08:50 ABG pH 7.40 7.35 7.26 L ABG pCO2 44 54 H D 68 H D ABG pO2 61 L 89 D 118 H D ABG HCO3 28 H 30 H 30 H ABG O2 Saturation 92 97 98 ABG Base Excess 2 3 1 11/26/24 11/26/24 11/27/24 12:45 19:23 04:53 ABG pH 7.25 L 7.27 L 7.26 L ABG pCO2 68 H 64 H 67 H ABG pO2 81 L D 62 L 77 L ABG HCO3 30 H 30 H 30 H ABG O2 Saturation 95 90 L 95 ABG Base Excess 1 1 1 11/27/24 09:52 ABG pH 7.28 L ABG pCO2 63 H ABG pO2 81 L ABG HCO3 30 H ABG O2 Saturation 96 ABG Base Excess 1 Quality Measures Quality Measures none Assessment & Plan Assessment Current Active Medications: Generic Name Dose Route Start Last Admin Trade Name Freq PRN Reason Stop Dose Admin Acetaminophen 650 mg 11/26/24 15:28 Acetaminophen Keisha 325 Mg/10 Ml Udc NG 12/25/24 16:04 Q6H PRN Pain 1-3 and/or Fever >100 Albuterol/Ipratropium 3 ml 11/25/24 16:34 11/27/24 04:52 Albuterol/Ipratropium (Duoneb) Rt Keisha 3 Ml Nebu INH 12/25/24 16:33 3 ml Q2HR PRN Administration SHORTNESS OF BREATH OR WHEEZE Albuterol/Ipratropium 3 ml 11/27/24 09:15 11/27/24 09:30 Albuterol/Ipratropium (Duoneb) Rt Keisha 3 Ml Nebu INH 12/27/24 09:14 3 ml Q2H RANDELL Administration Dextrose 50 ml 11/26/24 15:36 Dextrose 50%-Water Inj 50 Ml Syringe IV 12/26/24 15:35 Q15MIN PRN BG <50 OR BG <70 & pt unresponsive Enalaprilat 0.625 mg 11/26/24 15:21 Enalaprilat Inj 1.25 Mg/Ml Vial IVP 12/26/24 15:20 Q6HR PRN SBP > 180 Enoxaparin Sodium 40 mg 11/26/24 21:00 11/27/24 08:52 Enoxaparin Sod Inj 40 Mg/0.4 Ml Syringe SC 12/10/24 20:59 40 mg BID RANDELL Administration Hydralazine HCl 10 mg 11/25/24 22:26 Hydralazine Inj 20 Mg/Ml Vial IVP 12/25/24 18:37 X1 PRN BP>180/100 HR<85 Fentanyl Citrate 2,500 mcg in 250 mls @ 2.5 mls/hr 11/26/24 06:53 11/27/24 08:00 Sublimaze Inj 2,500 Mcg/250 Ml Bag IV 12/01/24 06:52 125 mcg/hr .Q24H PRN 12.5 mls/hr PER PROTOCOL Administration Protocol 25 MCG/HR Propofol 1,000 mg in 100 mls @ 3.606 mls/hr 11/26/24 07:00 11/27/24 07:00 Diprivan Ivpb IV 12/26/24 06:59 35 mcg/kg/min .Q24H PRN 25.242 mls/hr PER PROTOCOL Titration Protocol 5 MCG/KG/MIN Azithromycin 250 mg/ Sterile 252.5 mls @ 252.5 mls/hr 11/26/24 09:00 11/27/24 08:53 Water 2.5 ml/ Sodium Chloride IV 12/03/24 08:59 252.5 mls/hr QDAY RANDELL Administration Ceftriaxone Sodium/Dextrose 1 gm in 50 mls @ 100 mls/hr 11/26/24 08:33 11/27/24 08:52 Rocephin/D5w 1gm Iv Premix IV 12/03/24 08:32 100 mls/hr QDAY RANDELL Administration Norepinephrine/Dextrose 8 mg in 250 mls @ 11.269 mls/hr 11/26/24 15:22 11/27/24 05:00 Levophed In D5w 8mg/250ml IV 12/26/24 15:21 0 mcg/kg/min .[id number] PRN 0 mls/hr PER PROTOCOL Titration Protocol 0.05 MCG/KG/MIN Nicotine 21 mg 11/26/24 15:45 11/27/24 08:55 Nicotine Patch 21 Mg/24 Hr Patch.Td24 TOP 12/26/24 15:44 21 mg QDAY RANDELL Administration Pantoprazole Sodium 40 mg 11/26/24 09:00 11/27/24 08:54 Pantoprazole Inj 40 Mg Vial IVP 12/26/24 08:59 40 mg QDAY RANDELL Administration Prednisone 60 mg 11/27/24 09:00 11/27/24 08:54 Prednisone 20 Mg Tablet PO 12/03/24 10:16 60 mg QDAY RANDELL Administration Fluticasone/Salmeterol 1 puff 11/25/24 19:00 11/26/24 08:10 Fluticasone/Salmeterol 250/50 14 Dose Inh INH 12/25/24 18:59 Not Given On Hold: 11/26/24 07:56 BIDRT RANDELL Sodium Chloride 3 ml 11/25/24 12:23 11/25/24 12:31 Sodium Chloride Rt Keisha 0.9% 3 Ml Nebu INH 12/25/24 12:22 3 ml PRN PRN Administration SOLN Plan Patient is a 54-year-old male with a past medical history significant for COPD not on home oxygen, chronic nicotine dependence, 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 Patient will be upgraded to the ICU for acute respiratory failure with hypercarbia and hypoxia secondary to bronchoconstriction from COPD exacerbation and medication side effect. Overnight, patient was straight-cathed for 600 mL. Patient was examined at bedside; they remain intubated on AC/VC mode and sedated with fentanyl and propofol. On physical exam, a prolonged expiratory phase with significant wheezing is appreciated on auscultation of anterior lung [place] but the remainder of the exam was unremarkable. Notable labs today include WBC bump to 22.4 from 16.2 (patient is taking steroids and has been afebrile), BUN bump to 39 from 15, creatinine bump to 2.5 from 0.9, phosphorus 7.4 and magnesium 3.3. Ventilator settings were adjusted today to see if patient's respiratory status would improve under different conditions and a repeat ABG showed mild improvement (pH 7.26->7.28, pCO2 67->63, pO2 77->81, HCO3 30->30). Due to patient's significant wheezing on lung auscultation, administration of DuoNeb waas increased to q2HR scheduled. An attempt to reduce patient's sedation regimen today resulted in increased agitation and blood pressure elevation so the degree of weaning was dialed back. In terms of patient's new BLOSSOM today, the working theory is that it is either from the aggressive BEKA-inhibitor treatment he received upon admission or prerenal 2/2 intravascular depletion. To treat the BLOSSOM, patient was given a 500 mL bolus of free water and the rate of water flushes w/ tube feeding was increased from 30 mL/hr to 100 mL/hr with plans to continue monitoring his urinary output to assess hydration status and kidney function. Moving forward, patient's respiratory status will continue to be monitored for timely extubation as he continues on DuoNeb, prednisone, and antibiotics (azithromycin + ceftriaxone) for his COPD exacerbation. NEURO Chemical sedation Rx: -Fentanyl and propofol IV for RASS goal of -2 -Daily SATs RRx: -Patient continues to exhibit agitation and distress with concomitant elevations in blood pressure when under-sedated CVS Hypertensive urgency Patient was hypertensive with peak systolic blood pressure being in the 240s even prior to intubation. DDx: Agitation, pain, COPD exacerbation, nebulizers Dx: -Today, patient's blood pressure kyle to high 140/90s when an attempt to reduce sedation was attempted Rx: -For SBP >180, Vasotec 0.625 mg IV x 1 as needed RRX: -Patient's HTN is currently controlled while appropriately sedated PULM Acute respiratory failure with hypoxia and hypercarbia secondary to bronchoconstriction in setting of COPD exacerbation and medication side effect Patient presented with worsening shortness of breath over the past 3 days and was initially on BiPAP with DuoNebs every 4 hourly. This morning patient received labetalol IV after which she developed worsening tachypnea and dyspnea unamenable to BiPAP and requiring subsequent intubation and mechanical ventilation. DDx: Secondary to nonselective beta-piotr use, COPD exacerbation, occupational exposure Dx: ? Chest x-ray showed hyperexpanded lung [place] with increased reticular markings bilaterally. - pH 7.35?>7.26 ? pCO2 54?>68 - D-dimer <250 Rx: -AC/VC with permissive hypercapnia -Due to significant wheezing, DuoNeb administration changed to q2HR scheduled -Continue azithromycin 250 mg IV daily started on [11/25--] -Continue ceftriaxone 1 g IV daily on [11/26--] -Started prednisone 60 mg p.o. daily [11/27--] RRX: ?Most recent pH on ABG was 7.28 (11/27, 09:52), will continue with permissive hypercapnia for lung protective ventilation. GI/Hep No acute problems RENAL #BLOSSOM, likely prerenal DDx: 2/2 adverse medication effect (enalaprilat), intravascular depletion Dx: -Creatinine bump to 2.5 from 0.9, BUN bump to 39 from 15, eGFR reduced to 30 from > 60 Rx: -500 mL free water bolus x 1 -Rate of water flushes w/ tube feeding was increased from 30 mL/hr to 100 mL/hr -Monitor I's & O's -Hold any BEKA/ARBs -Avoid nephrotoxins RRx: -Continue to monitor renal panel and urine output HEME/ONC Leukocytosis DDx: Steroids, reactive, bacterial pneumonia Dx: -WBC up-trended to 22.4 from 16.2 (patient remains afebrile) Rx: -Continue to monitor for signs of infection and CBC results ENDO Prediabetic Dx: -11/27/24 hemoglobin A1c was 5.9% Rx: -Continue monitoring blood sugars RRX: -Patient's blood sugars have been adequately controlled ID No acute problems MSK/DERM No acute problems ICU Health maintenance: Dispo: Continues to meet criteria for ICU management due to ongoing need for intubation Diet: Tube feeds via OGT DVT ppx: Enoxaparin 40 mg SC twice daily GI ppx: Protonix 40mg qD Mechanical Ventilation: Yes, Mode: ACVC Sedation: Yes, Fentanyl , propofol (RAAS - 3) IV lines: 2 pIV Central line: No Arterial line: No Long: Yes (11/27) Code status: FULL CODE Plan of care discussed with Attending Dr. Baldemar Miller, DO Internal Medicine, PGY-1
--- NOTE | 2024-11-27 12:00 | PC.SS ---
UPSETTER conducted bedside contact with the patient conduct initial assessment and to discuss discharge planning.? Patient currently in ICU on mechanical ventilator.? At bedside with patient was nephew, Marilu Estrada .? Information obtained from patient?s nephew.? Patient resides at home with brother, Bishop Genao .? 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 Patient does not utilize any form of DME to assist with ambulation.? Patient does not utilize home oxygen.? Patient describes the ability to complete ADL?s independently. ?Patient?s surrogate medical decision maker is sister, Kathryn Vazquez .? No identified PCP for the patient.? No specialty providers identified.? visitor services technician will discuss discharge needs at an appropriate future time.? No further intervention required at this time, social studies department chair will be available to address any further concerns.? Next of Kin: Kathryn Gonzalez D/C Plan: Pending
--- NOTE | 2024-11-27 12:41 | XR_ITS ---
Examination: AP chest single view Technique: AP portable semiupright chest single view Date and time: November 27, 2024, 1345 hrs., Comparison November 26, 2024 Indications: Post orogastric tube placement, hypoxic respiratory failure. Findings: Mild prominence left ventricle Atelectasis versus pneumonia at the lung bases Endotracheal tube tip 4.3 cm above jocelyn The orogastric tube is in the stomach, the tip is below the level of the film Impression: The orogastric tube is in the stomach, the tip is below the level of the film.
--- NOTE | 2024-11-27 12:57 | PC.SS ---
Update: Patient is intubated/sedated. Tube feedings in place via OG tube. Afebrile. No pressor support. Patient receiving IV antibiotics.
[2024-11-27 13:49] LABS: Cocci Serology, IgG Negative (Negative)
[2024-11-27] MEDS: PROPOFOL 1,000 MG IVPB 1,000 MG/100 ML VIAL 32.455 MG IV ×3 (13:56→19:33)
[2024-11-27 14:43] LABS: Albumin, Serum 3.5 gm/dL (3.5-5.0); Anion Gap 6 (7-16); BUN/Creatinine Ratio 20 Ratio (12-20); Blood Urea Nitrogen 45 mg/dL (9-23); Calcium 8.3 mg/dL (8.3-10.6); Calcium (Corrected) 8.7 mg/dL (8.5-10.1); Carbon Dioxide 29.2 mMol/L (20.0-31.0); Chloride 102 mMol/L (98-107); Creatinine (Component) 2.3 mg/dL (0.6-1.3); Estimated Creatinine Clearance 46.8 mL/min (>60); Glucose 133 mg/dL (74-106); Osmolality,Calculated 287 (275-295); Phosphorous 6.6 mg/dL (2.4-5.1); Potassium 4.8 mMol/L (3.4-5.1); Sodium 137 mMol/L (136-145); eGFR 33 See Note
[2024-11-27] MEDS: fentaNYL 2,500 MCG/250 ML BAG 2,500 MCG/250 ML BAG 22.5 MCG IV (20:57)
[2024-11-27] MEDS: PROPOFOL 1,000 MG IVPB 1,000 MG/100 ML VIAL 28.848 MG IV (22:30)
[2024-11-28] VITALS (38 sets, daily range): BP systolic 100–167; BP diastolic 55–128; PULSE 66–124; RESP 14–24; TEMP 35.4–36.8; O2SAT 94–100
[2024-11-28] MEDS: ALBUTEROL/IPRATROPIUM (Duoneb) RT SOL 3 ML NEBU INH ×10 (00:40→21:56)
[2024-11-28] MEDS: PROPOFOL 1,000 MG IVPB 1,000 MG/100 ML VIAL 21.636 MG IV (02:32)
[2024-11-28 05:27] LABS: Base Excess 5 (-3-3); HCO3 32 mEq/L (20-26); Inspired Oxygen, FIO2 40 %; O2 Saturation 96 % (91-98); PCO2 60 mmHg (32.0-48.0); PO2 81 mmHg (83-108); pH, Arterial 7.34 (7.35-7.45)
[2024-11-28 05:28] LABS: Allen Test Performed/OK; Puncture Site Right Radial
[2024-11-28 05:34] LABS: Basophils # (Auto) 0.1 Thou/mm3 (0.0-0.2); Basophils % (Auto) 0 % (0-2.5); Eosinophils # (Auto) 0.0 Thou/mm3 (0.0-0.5); Eosinophils % (Auto) 0 % (0-10); Hematocrit 40.6 % (41.0-53.0); Hemoglobin 13.0 g/dL (13.5-16.0); Immature Granulocytes Auto 0.24 Thou/mm3 (0.00-0.00); Lymphocytes # (Auto) 1.3 Thou/mm3 (1.0-4.8); Lymphocytes % (Auto) 9 % (10-50); Mean Corpuscular HGB Conc 32.0 g/dl (31.0-37.0); Mean Corpuscular Hemoglobin 29.6 pg (25.0-35.0); Mean Corpuscular Volume 93 fL (80-100); Monocytes # (Auto) 1.7 Thou/mm3 (0.0-0.8); Monocytes % (Auto) 12 % (0-12); Neutrophils # (Auto) 10.7 Thou/mm3 (1.8-7.7); Neutrophils % (Auto) 77 % (37-80); Nucleated Red Blood Cell # 0.00 Thou/mm3 (0.00-0.00); Nucleated Red Blood Cell % 0 /100 WBC (0); Platelet Count 198 Thou/mm3 (140-440); RDW Standard Deviation 43.4 fL (35.1-43.9); Red Blood Count 4.39 Miln/mm3 (4.50-5.90); White Blood Count 13.9 Thou/mm3 (3.8-10.6)
[2024-11-28] MEDS: ETOMIDATE INJ 2 MG/ML VIAL 10 ML 35 MG IVP ×2 (05:36→05:42)
[2024-11-28] MEDS: ROCURONIUM INJ 10 MG/ML VIAL 10 ML 100 MG IV (05:37)
--- NOTE | 2024-11-28 05:45 | XR_ITS ---
Examination: AP chest single view Technique: AP portable semiupright chest single view Date and time: November 28, 2024 0630 hrs., Comparison 11/27/2024 Indications: Hypoxic respiratory failure postintubation. Findings: Bibasilar pneumonia remains Normal heart size Orogastric tube in the stomach, the tip is below the level of the film Endotracheal tube tip 5 cm above jocelyn Impression: Significant bibasilar pneumonia remains
--- NOTE | 2024-11-28 05:48 | PD.INTPROC ---
PROCEDURES: Procedure Date / Time 11/28/24 0548 Intubation Indication(s): acute Resp Failure and inability to protect airway Informed consent obtained: procedure done urgently Time out done, and the following verified: correct patient, side and site, procedure, patient position and implants and/or equipment Sedative: etomidate Mg given: 35 Paralytic: rocuronium Mg given: 100 Laryngoscope: fiber optic video scope ET tube size: 7.5 ET tube uncuffed: Yes Tube secured depth (cm): 26 Tube secured location: teeth Tube placement confirmation: visualized tube passing through cords, equal breath sounds bilaterally and confirmation by capnometry Patient tolerated procedure: well and no complications EBL(ml): 0 Intubation complications: none Additional comments: procedure went w/o complication and was done under direct supervision of Attending physician. Patient care was discussed with attending physician Dr. Angelika Mcgee MD PGY-3 I have carefully reviewed this document. Due to imperfections in the voice software, there could be grammatical errors including phonetic/typographic errors. This in no way compromises the medical care the patient is receiving
[2024-11-28 06:02] LABS: Albumin, Serum 3.6 gm/dL (3.5-5.0); Anion Gap 5 (7-16); BUN/Creatinine Ratio 21 Ratio (12-20); Blood Urea Nitrogen 29 mg/dL (9-23); Calcium 8.6 mg/dL (8.3-10.6); Calcium (Corrected) 8.9 mg/dL (8.5-10.1); Carbon Dioxide 30.7 mMol/L (20.0-31.0); Chloride 103 mMol/L (98-107); Creatinine (Component) 1.4 mg/dL (0.6-1.3); Estimated Creatinine Clearance 76.9 mL/min (>60); Glucose 113 mg/dL (74-106); Magnesium 3.0 mg/dL (1.6-2.6); Osmolality,Calculated 284 (275-295); Phosphorous 4.6 mg/dL (2.4-5.1); Potassium 5.0 mMol/L (3.4-5.1); Sodium 139 mMol/L (136-145); eGFR > 60 See Note
[2024-11-28] MEDS: ROCURONIUM INJ 10 MG/ML VIAL 10 ML 100 MG IVP (06:43)
[2024-11-28] MEDS: PROPOFOL 1,000 MG IVPB 1,000 MG/100 ML VIAL 25.242 MG IV ×5 (07:05→23:25)
[2024-11-28 07:39] LABS: Base Excess 4 (-3-3); HCO3 33 mEq/L (20-26); Inspired Oxygen, FIO2 100 %; O2 Saturation 101 % (91-98); PCO2 67 mmHg (32.0-48.0); PO2 360 mmHg (83-108); pH, Arterial 7.30 (7.35-7.45)
[2024-11-28 07:41] LABS: Allen Test Performed/OK; Puncture Site Right Radial
[2024-11-28] MEDS: fentaNYL 2,500 MCG/250 ML BAG 2,500 MCG/250 ML BAG 27.5 MCG IV ×2 (08:22→17:12)
[2024-11-28] MEDS: cefTRIAXone/D5w 1gm IV premix 1 GM/50 ML BAG IV (08:54)
[2024-11-28] MEDS: AZITHROMYCIN INJ 250 MG, Sterile Water 2.5 ML in SODIUM CHLORIDE 0.9% 250 ML 250 ML 252.5 MG IV (08:54)
[2024-11-28] MEDS: NICOTINE PATCH 21 MG/24 HR PATCH.TD24 TOP (08:55)
[2024-11-28] MEDS: ENOXAPARIN SOD INJ 40 MG/0.4 ML SYRINGE SC ×2 (08:56→20:13)
--- NOTE | 2024-11-28 09:31 | ESPR_ITS ---
<Statement entered by Samuel Andres MD - 11/28/24 16:31> Senior Resident Attestation: I supervised/discussed management plan with exercise science internship physician Dr. Miller, and was involved in the care of this patient. I personally saw and examined the patient and discussed the assessment and plan with the entire medicine team, including my attending. I agree with the assessment and plan as documented. Patient was seen and examined at the bedside. Overnight patient self extubated and developed respiratory distress, decision was made to reintubate patient. His ABG was appropriate after intubation. He was put on propofol and fentanyl to maintain RASS -3. Will continue current management, will reattempt sedation holiday tomorrow and see if he can extubate him. Will continue on breathing treatments every 2 hours. His prednisone was switched to Solu-Medrol 40 mg daily. Patient's care was discussed with attending physician, Dr. Mcdermott. Samuel Andres MD PGY-3. Documentation for date of: 11/28/24 Subjective Subjective Interval history: At the time of interview patient was in severe distress, history obtained from chart review. 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 Patient was initially admitted to the floor for COPD exacerbation and started on BiPAP, DuoNebs Q3 hourly, azithromycin 500 mg IV daily and Solu-Medrol 40 mg IV Q8 hourly. Overnight patient had a rapid response called for hypertensive urgency with systolic blood pressures in the 200s, he received hydralazine 10 mg IV x 1 and labetalol 10 mg IV x 1. Subsequently he developed worsening tachypnea and was unable to comply with BiPAP. ABG at that time showed pH 7.35, pCO2 54. Patient was upgraded to the ICU at 6:42 AM and the decision was made to intubate. ED attending, Dr. De Leon was in attendance. At 6:59 AM, etomidate 25 mg IV x 1 and rocuronium 100 mg IV x 1 were given for RSI. At 7:02 AM magnesium sulfate 2 g IV x 1 was given over 20 minutes for bronchoconstriction as well. First attempt using video laryngoscope was unsuccessful and patient was subsequently bagged for 15 minutes. During this time Solu-Medrol 250 mg IV x 1 was given. Second attempt at intubation was successful at 7:22 AM. Post intubation chest x-ray confirmed placement of tube 5 cm above jocelyn, subsequently it was advanced by 2 cm. Patient will be upgraded to the ICU for acute respiratory failure with hypercarbia and hypoxia secondary to bronchoconstriction from COPD exacerbation and medication side effect. Interval History 11/27/24: Overnight, patient was straight-cathed for 600 mL. Patient was examined at bedside; they remain intubated on AC/VC mode and sedated with fentanyl and propofol. On physical exam, a prolonged expiratory phase with significant wheezing is appreciated on auscultation of anterior lung seg[place]ia but the remainder of the exam was unremarkable. Notable labs today include WBC bump to 22.4 from 16.2 (patient is taking steroids and has been afebrile), BUN bump to 39 from 15, creatinine bump to 2.5 from 0.9, phosphorus 7.4 and magnesium 3.3. Ventilator settings were adjusted today to see if patient's respiratory status would improve under different conditions and a repeat ABG showed mild improvement (pH 7.26->7.28, pCO2 67->63, pO2 77->81, HCO3 30->30). Due to patient's significant wheezing on lung auscultation, administration of DuoNeb waas increased to q2HR scheduled. An attempt to reduce patient's sedation regimen today resulted in increased agitation and blood pressure elevation so the degree of weaning was dialed back. In terms of patient's new BLOSSOM today, the working theory is that it is either from the aggressive BEKA-inhibitor treatment he received upon admission or prerenal 2/2 intravascular depletion. To treat the BLOSSOM, patient was given a 500 mL bolus of free water and the rate of water flushes w/ tube feeding was increased from 30 mL/hr to 100 mL/hr with plans to continue monitoring his urinary output to assess hydration status and kidney function. Moving forward, patient's respiratory status will continue to be monitored for timely extubation as he continues on DuoNeb, prednisone, and antibiotics (azithromycin + ceftriaxone). 11/28/24: Overnight, patient managed to self-extubate himself despite being on bilateral wrist restraints and was subsequently reintubated after he developed respiratory distress. Sedation was achieved with propofol and fentanyl to maintain RASS of -3. His ABG was appropriate after intubation. However, there is concern that possible aspiration could have occurred due to this event as patient had tube feeds actively going at the time. Patient also continues to exhibit significant active wheeze. Urine output yesterday was 1200 mL and patient's BLOSSOM seems improved today after he was given fluid bolus and increased rate of water flushes. Seroquel was added yesterday to reduce the degree of agitation patient exhibits during sedation vacation. Additionally, patient's NG prednisone 60 mg was switched to IV solumedrol 40 mg q6HR. Due to ongoing need for intubation, patient continues to meet criteria for ICU management. Exam Vital Signs Temp Pulse Resp BP Pulse Ox O2 Del Method O2 Flow Rate 95.7 F L 70 18 119/62 100 Mechanical Ventilation 5 11/28/24 07:00 11/28/24 09:00 11/28/24 08:54 11/28/24 09:00 11/28/24 09:00 11/28/24 00:00 11/26/24 03:00 FiO2 50 11/28/24 08:54 Narrative Exam Constitutional Obese male, intubated and mechanically ventilated on volume control. Sedated with fentanyl and propofol. HEENT Normocephalic, atraumatic, sclera anicteric, ET tube and OG tube in place. Respiratory Prolonged expiratory phase with significant wheezing appreciated on auscultation of anterior lung seg[place]ia. No increased work of breathing or use of accessory muscles observed. Cardiovascular S1 and S2 audible, RRR. No murmurs appreciated. No gross JVD. Abdominal Soft, non-tender to palpation in all quadrants. No palpable masses, rebound tenderness, or guarding. Bowel sounds present Genitourinary Penis is circumcised with Long catheter in place. Some blood noted around urinary meatus. Extremities No edema, no clubbing, and no cyanosis appreciated. Skin Warm, dry and intact. No apparent lesions. Psychiatric Chemically sedated Objective Labs 11/28/24 04:46 11/28/24 04:46 Labs: Laboratory Results - last 24 hr 11/26/24 11/27/24 11/27/24 05:34 09:52 14:15 WBC RBC Hgb Hct MCV MCH MCHC RDW Std Deviation Plt Count Neut % (Auto) Lymph % (Auto) [place] % (Auto) Eos % (Auto) Baso % (Auto) Neut # (Auto) Lymph # (Auto) [place] # (Auto) Eos # (Auto) Baso # (Auto) Immature Gran # (Auto) Absolute Nucleated RBC Immature Gran % Nucleated RBC % Puncture Site Right Brachial ABG pH 7.28 L ABG pCO2 63 H ABG pO2 81 L ABG HCO3 30 H ABG O2 Saturation 96 ABG Base Excess 1 FiO2 40 Sodium 137 Potassium 4.8 Chloride 102 Carbon Dioxide 29.2 Anion Gap 6 L BUN 45 H Creatinine 2.3 H Estim Creat Clear Calc 46.8 L eGFR 33 L BUN/Creatinine Ratio 20 Glucose 133 H Calculated Osmolality 287 Calcium 8.3 Corrected Calcium 8.7 Phosphorus 6.6 H Magnesium Albumin 3.5 Coccidioides IgG Ab Negative 11/28/24 11/28/24 11/28/24 04:46 05:15 07:24 WBC 13.9 H D RBC 4.39 L Hgb 13.0 L Hct 40.6 L MCV 93 MCH 29.6 MCHC 32.0 RDW Std Deviation 43.4 Plt Count 198 Neut % (Auto) 77 Lymph % (Auto) 9 L [place] % (Auto) 12 Eos % (Auto) 0 Baso % (Auto) 0 Neut # (Auto) 10.7 H Lymph # (Auto) 1.3 [place] # (Auto) 1.7 H Eos # (Auto) 0.0 Baso # (Auto) 0.1 Immature Gran # (Auto) 0.24 H Absolute Nucleated RBC 0.00 Immature Gran % 2 H Nucleated RBC % 0 Puncture Site Right Radial Right Radial ABG pH 7.34 L 7.30 L ABG pCO2 60 H 67 H ABG pO2 81 L 360 H D ABG HCO3 32 H 33 H ABG O2 Saturation 96 101 H ABG Base Excess 5 H 4 H FiO2 40 100 Sodium 139 Potassium 5.0 Chloride 103 Carbon Dioxide 30.7 Anion Gap 5 L BUN 29 H Creatinine 1.4 H D Estim Creat Clear Calc 76.9 eGFR > 60 BUN/Creatinine Ratio 21 H Glucose 113 H Calculated Osmolality 284 Calcium 8.6 Corrected Calcium 8.9 Phosphorus 4.6 Magnesium 3.0 H Albumin 3.6 Coccidioides IgG Ab ABG Interpretation ABG results: 11/25/24 11/26/24 11/26/24 16:33 03:30 08:50 ABG pH 7.40 7.35 7.26 L ABG pCO2 44 54 H D 68 H D ABG pO2 61 L 89 D 118 H D ABG HCO3 28 H 30 H 30 H ABG O2 Saturation 92 97 98 ABG Base Excess 2 3 1 11/26/24 11/26/24 11/27/24 12:45 19:23 04:53 ABG pH 7.25 L 7.27 L 7.26 L ABG pCO2 68 H 64 H 67 H ABG pO2 81 L D 62 L 77 L ABG HCO3 30 H 30 H 30 H ABG O2 Saturation 95 90 L 95 ABG Base Excess 1 1 1 11/27/24 11/28/24 11/28/24 09:52 05:15 07:24 ABG pH 7.28 L 7.34 L 7.30 L ABG pCO2 63 H 60 H 67 H ABG pO2 81 L 81 L 360 H D ABG HCO3 30 H 32 H 33 H ABG O2 Saturation 96 96 101 H ABG Base Excess 1 5 H 4 H Quality Measures Quality Measures none Assessment & Plan Assessment Current Active Medications: Generic Name Dose Route Start Last Admin Trade Name Freq PRN Reason Stop Dose Admin Acetaminophen 650 mg 11/26/24 15:28 Acetaminophen Keisha 325 Mg/10 Ml Udc NG 12/25/24 16:04 Q6H PRN Pain 1-3 and/or Fever >100 Albuterol/Ipratropium 3 ml 11/25/24 16:34 11/27/24 04:52 Albuterol/Ipratropium (Duoneb) Rt Keisha 3 Ml Nebu INH 12/25/24 16:33 3 ml Q2HR PRN Administration SHORTNESS OF BREATH OR WHEEZE Albuterol/Ipratropium 3 ml 11/27/24 09:15 11/28/24 08:54 Albuterol/Ipratropium (Duoneb) Rt Keisha 3 Ml Nebu INH 12/27/24 09:14 3 ml Q2H RANDELL Administration Dextrose 50 ml 11/26/24 15:36 Dextrose 50%-Water Inj 50 Ml Syringe IV 12/26/24 15:35 Q15MIN PRN BG <50 OR BG <70 & pt unresponsive Enalaprilat 0.625 mg 11/26/24 15:21 Enalaprilat Inj 1.25 Mg/Ml Vial IVP 12/26/24 15:20 Q6HR PRN SBP > 180 Enoxaparin Sodium 40 mg 11/26/24 21:00 11/28/24 08:56 Enoxaparin Sod Inj 40 Mg/0.4 Ml Syringe SC 12/10/24 20:59 40 mg BID RANDELL Administration Hydralazine HCl 10 mg 11/25/24 22:26 Hydralazine Inj 20 Mg/Ml Vial IVP 12/25/24 18:37 X1 PRN BP>180/100 HR<85 Fentanyl Citrate 2,500 mcg in 250 mls @ 2.5 mls/hr 11/26/24 06:53 11/28/24 09:00 Sublimaze Inj 2,500 Mcg/250 Ml Bag IV 12/01/24 06:52 275 mcg/hr .Q24H PRN 27.5 mls/hr PER PROTOCOL Titration Protocol 25 MCG/HR Propofol 1,000 mg in 100 mls @ 3.606 mls/hr 11/26/24 07:00 11/28/24 09:00 Diprivan Ivpb IV 12/26/24 06:59 35 mcg/kg/min .Q24H PRN 25.242 mls/hr PER PROTOCOL Titration Protocol 5 MCG/KG/MIN Azithromycin 250 mg/ Sterile 252.5 mls @ 252.5 mls/hr 11/26/24 09:00 11/28/24 08:54 Water 2.5 ml/ Sodium Chloride IV 12/03/24 08:59 252.5 mls/hr QDAY RANDELL Administration Ceftriaxone Sodium/Dextrose 1 gm in 50 mls @ 100 mls/hr 11/26/24 08:33 11/28/24 08:54 Rocephin/D5w 1gm Iv Premix IV 12/03/24 08:32 100 mls/hr QDAY RANDELL Administration Norepinephrine/Dextrose 8 mg in 250 mls @ 11.269 mls/hr 11/26/24 15:22 11/27/24 05:00 Levophed In D5w 8mg/250ml IV 12/26/24 15:21 0 mcg/kg/min .[id number] PRN 0 mls/hr PER PROTOCOL Titration Protocol 0.05 MCG/KG/MIN Methylprednisolone Sodium Succinate 40 mg 11/28/24 12:00 Methylprednisolone Sod Succ 40 Mg/Ml Vial IVP 12/05/24 11:59 Q6HR RANDELL Nicotine 21 mg 11/26/24 15:45 11/28/24 08:55 Nicotine Patch 21 Mg/24 Hr Patch.Td24 TOP 12/26/24 15:44 21 mg QDAY RANDELL Administration Pantoprazole Sodium 40 mg 11/26/24 09:00 11/28/24 08:55 Pantoprazole Inj 40 Mg Vial IVP 12/26/24 08:59 40 mg QDAY RANDELL Administration Quetiapine Fumarate 25 mg 11/28/24 09:00 11/28/24 08:56 Quetiapine Fumarate 25 Mg Tablet PO 12/28/24 08:59 25 mg BID RANDELL Administration Fluticasone/Salmeterol 1 puff 11/25/24 19:00 11/26/24 08:10 Fluticasone/Salmeterol 250/50 14 Dose Inh INH 12/25/24 18:59 Not Given On Hold: 11/26/24 07:56 BIDRT RANDELL Sodium Chloride 3 ml 11/25/24 12:23 11/25/24 12:31 Sodium Chloride Rt Keisha 0.9% 3 Ml Nebu INH 12/25/24 12:22 3 ml PRN PRN Administration SOLN Plan Patient is a 54-year-old male with a past medical history significant for COPD not on home oxygen, chronic nicotine dependence, 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 Patient will be upgraded to the ICU for acute respiratory failure with hypercarbia and hypoxia secondary to bronchoconstriction from COPD exacerbation and medication side effect. Overnight, patient managed to self-extubate himself despite being on bilateral wrist restraints and was subsequently reintubated after he developed respiratory distress. Sedation was achieved with propofol and fentanyl to maintain RASS of - 3. His ABG was appropriate after intubation. However, there is concern that possible aspiration could have occurred due to this event as patient had tube feeds actively going at the time. Patient also continues to exhibit significant active wheeze. Urine output yesterday was 1200 mL and patient's BLOSSOM seems improved today after he was given fluid bolus and increased rate of water flushes. Seroquel was added yesterday to reduce the degree of agitation patient exhibits during sedation vacation. Additionally, patient's NG prednisone 60 mg was switched to IV solumedrol 40 mg q6HR. Due to ongoing need for intubation, patient continues to meet criteria for ICU management. NEURO #Chemical sedation Rx: -Fentanyl and propofol IV for RASS goal of -3 -Daily SATs -Continue PO Seroquel 25 mg BID to reduce agitation RRx: -Patient continues to exhibit agitation and distress with concomitant elevations in blood pressure when under-sedated CVS Hypertensive urgency Patient was hypertensive with peak systolic blood pressure being in the 240s prior to first intubation. DDx: Agitation, pain, COPD exacerbation, nebulizers Rx: -For SBP >180, Vasotec 0.625 mg IV x 1 as needed RRX: -Patient's HTN is currently controlled while appropriately sedated PULM Acute respiratory failure with hypoxia and hypercarbia secondary to bronchoconstriction in setting of COPD exacerbation and medication side effect Patient presented with worsening shortness of breath and was initially on BiPAP with DuoNebs every 4 hourly. Patient received labetalol IV after which he developed worsening tachypnea and dyspnea unamenable to BiPAP and requiring subsequent intubation and mechanical ventilation. 11/28 patient self-extubated while tube feeds were running leading to concern for possible aspiration, was reintubated (2nd intubation) DDx: Secondary to nonselective beta-piotr use, COPD exacerbation, occupational exposure Dx: ? Chest x-ray showed hyperexpanded lung seg[place]ia with increased reticular markings bilaterally. - pH 7.35?>7.26 ? pCO2 54?>68 - D-dimer <250 Rx: -Repeat ABG -MV with permissive hypercapnia -Continue DuoNeb q2HR scheduled -Continue azithromycin 250 mg IV daily started on [11/25--] -Continue ceftriaxone 1 g IV daily on [11/26--] -Switched from NG prednisone 60 mg qD to IV solumedrol 40 mg q6HR RRX: ?Patient continues to exhibit significant active wheezing GI/Hep No acute problems RENAL #BLOSSOM, likely prerenal (resolving) DDx: 2/2 adverse medication effect (enalaprilat), intravascular depletion Dx: -Creatinine has down-trended today from 2.3 to 1.4 Rx: -Continue water flushes w/ tube feeding @ 100 mL/hr -Monitor I's & O's -Hold any BEKA/ARBs -Avoid nephrotoxins RRx: -Patient's BLOSSOM has significantly improved from yesterday after getting free water bolus and increased water flush rate w/ tube feeding HEME/ONC Leukocytosis (resolving) Initial WBC elevation to 20+ were likely 2/2 continued steroid administration and reactive WBC down-trended today from 22.4 from 13.9 ENDO Prediabetic Dx: -11/27/24 hemoglobin A1c was 5.9% Rx: -Continue monitoring blood sugars RRX: -Patient's blood sugars have been adequately controlled ID No acute problems MSK/DERM No acute problems ICU Health maintenance: Dispo: Continues to meet criteria for ICU management due to ongoing need for intubation Diet: Tube feeds via OGT DVT ppx: Enoxaparin 40 mg SC twice daily GI ppx: Protonix 40mg qD Mechanical Ventilation: Yes, Mode: ACVC Sedation: Yes, Fentanyl , propofol (RAAS - 3) IV lines: 2 pIV Central line: No Arterial line: No Long: Yes (11/27) Code status: FULL CODE Plan of care discussed with Attending Dr. Baldemar Miller, DO Internal Medicine, PGY-1
--- NOTE | 2024-11-28 10:22 | PD.INTPROG ---
Documentation for date of: 11/28/24 Subjective Subjective Interval history: This is a 54yo M who presented to the hospital on 25 November. He initially presented for shortness of breath and COPD exacerbation. He decompensated and ultimately required intubation early in the morning of the . He was intubated and sedated and brought over to the ICU. There were no acute overnight events. He was straight cathed for 600 cc overnight. He remains afebrile. 11/28- overnight pt self extubated and was reintubated, possible aspiration as pt had tube feeds actively going. good UOP, afebrile Critical Care Note Critical care time (min.): 42 Exam Vital Signs Temp Pulse Resp BP Pulse Ox O2 Del Method O2 Flow Rate 95.7 F L 70 18 119/62 100 Mechanical Ventilation 5 11/28/24 07:00 11/28/24 09:00 11/28/24 08:54 11/28/24 09:00 11/28/24 09:00 11/28/24 00:00 11/26/24 03:00 FiO2 50 11/28/24 08:54 Narrative Exam Gen- NAD, intubated, sedated, obese body habitus HEENT- NC/AT, mucosa hydrated, sclera anicteric, Chest- b/l expiratory wheeze throughout, no crackles, HRRR, no increase in WOB Abd- obese, s/nt/bs+ Ext- no edema, pulses palp, no clubbing, no mottling, no focal deficits Vent AC VC Drips prop fent Physical Exam Completion Physical Exam Complete?: Yes 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 11/28/24 04:46 11/28/24 04:46 Labs: Laboratory Results - last 24 hr 11/26/24 11/27/24 11/28/24 05:34 14:15 04:46 WBC 13.9 H D RBC 4.39 L Hgb 13.0 L Hct 40.6 L MCV 93 MCH 29.6 MCHC 32.0 RDW Std Deviation 43.4 Plt Count 198 Neut % (Auto) 77 Lymph % (Auto) 9 L [place] % (Auto) 12 Eos % (Auto) 0 Baso % (Auto) 0 Neut # (Auto) 10.7 H Lymph # (Auto) 1.3 [place] # (Auto) 1.7 H Eos # (Auto) 0.0 Baso # (Auto) 0.1 Immature Gran # (Auto) 0.24 H Absolute Nucleated RBC 0.00 Immature Gran % 2 H Nucleated RBC % 0 Puncture Site ABG pH ABG pCO2 ABG pO2 ABG HCO3 ABG O2 Saturation ABG Base Excess FiO2 Sodium 137 139 Potassium 4.8 5.0 Chloride 102 103 Carbon Dioxide 29.2 30.7 Anion Gap 6 L 5 L BUN 45 H 29 H Creatinine 2.3 H 1.4 H D Estim Creat Clear Calc 46.8 L 76.9 eGFR 33 L > 60 BUN/Creatinine Ratio 20 21 H Glucose 133 H 113 H Calculated Osmolality 287 284 Calcium 8.3 8.6 Corrected Calcium 8.7 8.9 Phosphorus 6.6 H 4.6 Magnesium 3.0 H Albumin 3.5 3.6 Coccidioides IgG Ab Negative 11/28/24 11/28/24 05:15 07:24 WBC RBC Hgb Hct MCV MCH MCHC RDW Std Deviation Plt Count Neut % (Auto) Lymph % (Auto) [place] % (Auto) Eos % (Auto) Baso % (Auto) Neut # (Auto) Lymph # (Auto) [place] # (Auto) Eos # (Auto) Baso # (Auto) Immature Gran # (Auto) Absolute Nucleated RBC Immature Gran % Nucleated RBC % Puncture Site Right Radial Right Radial ABG pH 7.34 L 7.30 L ABG pCO2 60 H 67 H ABG pO2 81 L 360 H D ABG HCO3 32 H 33 H ABG O2 Saturation 96 101 H ABG Base Excess 5 H 4 H FiO2 40 100 Sodium Potassium Chloride Carbon Dioxide Anion Gap BUN Creatinine Estim Creat Clear Calc eGFR BUN/Creatinine Ratio Glucose Calculated Osmolality Calcium Corrected Calcium Phosphorus Magnesium Albumin Coccidioides IgG Ab Assessment & Plan Additional Plan Additional Plan: In brief this is a 54-year-old male admitted to the ICU for acute respiratory distress secondary to COPD currently intubated and 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 CV HTN- currently controlled - prn as needed Resp Acute Resp Failure- 2/2 COPDE, on MV, fu with CXR and ABG -poss aspiration after self extubation and reintubation overnight - repeat ABG COPDE- currently on nebs and steroids, significant active wheezing - on ceftri/azithro - pred 60mg-> changed to solumedrol 40mg q6 today - nebs q2hr - still with significant active wheeze Renal BLOSSOM- pts BP is also borderline - may be due to volume depletion - given bolus of fluid - monitor i/os - avoid nephrotoxins - improving today with fluid bolus yesterday - good UOP GI GI proph- PPI Endo stable Heme Leukoctyosis- likely 2/2 steroids, afebrile - trending down DVT proph- lovenox ID stable case d/w ICU team labs, imaging, records reviewed ~42ccmin required for eval, exam, review, intervention, discussion and formulation of POC for this critically ill pt with acute resp failure currently intubated and on MV Provider Notation Provider Notation: Although this document has been carefully reviewed, there may still be some phonetic and other typographical errors. These errors are purely grammatical due to imperfections in the software program and should not be construed in any way to compromise the substance of the patient's medical care during this visit. Thank you for the opportunity and privilege in assisting you with this patient's care and management.
[2024-11-29] VITALS (55 sets, daily range): BP systolic 125–258; BP diastolic 65–133; PULSE 61–121; RESP 7–96; TEMP 36.1–37.4; O2SAT 14–100; BMI 38.2
[2024-11-29] MEDS: ALBUTEROL/IPRATROPIUM (Duoneb) RT SOL 3 ML NEBU INH ×12 (00:34→23:13)
[2024-11-29] MEDS: fentaNYL 2,500 MCG/250 ML BAG 2,500 MCG/250 ML BAG 27.5 MCG IV (02:20)
[2024-11-29] MEDS: PROPOFOL 1,000 MG IVPB 1,000 MG/100 ML VIAL 25.242 MG IV (03:34)
[2024-11-29 05:11] LABS: Base Excess 7 (-3-3); HCO3 33 mEq/L (20-26); Inspired Oxygen, FIO2 35 %; O2 Saturation 97 % (91-98); PCO2 55 mmHg (32.0-48.0); PO2 81 mmHg (83-108); pH, Arterial 7.39 (7.35-7.45)
[2024-11-29 05:13] LABS: Allen Test Performed/OK; Puncture Site Right Radial
[2024-11-29 05:35] LABS: Basophils # (Auto) 0.0 Thou/mm3 (0.0-0.2); Basophils % (Auto) 0 % (0-2.5); Eosinophils # (Auto) 0.0 Thou/mm3 (0.0-0.5); Eosinophils % (Auto) 0 % (0-10); Hematocrit 38.8 % (41.0-53.0); Hemoglobin 12.5 g/dL (13.5-16.0); Immature Granulocytes Auto 0.23 Thou/mm3 (0.00-0.00); Lymphocytes # (Auto) 0.5 Thou/mm3 (1.0-4.8); Lymphocytes % (Auto) 4 % (10-50); Mean Corpuscular HGB Conc 32.2 g/dl (31.0-37.0); Mean Corpuscular Hemoglobin 29.8 pg (25.0-35.0); Mean Corpuscular Volume 93 fL (80-100); Monocytes # (Auto) 0.5 Thou/mm3 (0.0-0.8); Monocytes % (Auto) 5 % (0-12); Neutrophils # (Auto) 9.9 Thou/mm3 (1.8-7.7); Neutrophils % (Auto) 89 % (37-80); Nucleated Red Blood Cell # 0.00 Thou/mm3 (0.00-0.00); Nucleated Red Blood Cell % 0 /100 WBC (0); Platelet Count 194 Thou/mm3 (140-440); RDW Standard Deviation 42.8 fL (35.1-43.9); Red Blood Count 4.19 Miln/mm3 (4.50-5.90); White Blood Count 11.2 Thou/mm3 (3.8-10.6)
[2024-11-29 06:00] LABS: Albumin, Serum 3.4 gm/dL (3.5-5.0); Anion Gap 5 (7-16); BUN/Creatinine Ratio 24 Ratio (12-20); Blood Urea Nitrogen 26 mg/dL (9-23); Calcium 8.7 mg/dL (8.3-10.6); Calcium (Corrected) 9.2 mg/dL (8.5-10.1); Carbon Dioxide 32.8 mMol/L (20.0-31.0); Chloride 103 mMol/L (98-107); Creatinine (Component) 1.1 mg/dL (0.6-1.3); Estimated Creatinine Clearance 96.5 mL/min (>60); Glucose 142 mg/dL (74-106); Magnesium 2.7 mg/dL (1.6-2.6); Osmolality,Calculated 287 (275-295); Phosphorous 2.9 mg/dL (2.4-5.1); Potassium 5.6 mMol/L (3.4-5.1); Sodium 141 mMol/L (136-145); eGFR > 60 See Note
--- NOTE | 2024-11-29 06:00 | XR_ITS ---
Examination: AP chest single view Technique one AP portable semiupright chest single view Date and time: November 29, 2024, 0346 hrs., Comparison 11/28/2024 Indications: Difficulty breathing this week, hypoxic respiratory failure Findings: Endotracheal tube tip 6 cm above jocelyn. Mild enlargement cardiac contour with mild vascular congestion. Prominent pneumonia left base retrocardiac Impression: Prominent pneumonia left base retrocardiac
[2024-11-29] MEDS: LABETALOL INJ 5 MG/ML VIAL 20 ML 10 MG IVP ×2 (08:41→09:03)
[2024-11-29] MEDS: NICOTINE PATCH 21 MG/24 HR PATCH.TD24 TOP (08:54)
[2024-11-29] MEDS: ENOXAPARIN SOD INJ 40 MG/0.4 ML SYRINGE SC ×2 (08:54→21:08)
[2024-11-29] MEDS: cefTRIAXone/D5w 1gm IV premix 1 GM/50 ML BAG IV (08:54)
[2024-11-29] MEDS: DILTIAZEM INJ 5 MG/ML VIAL 5 ML 10 MG IV (09:23)
[2024-11-29] MEDS: NICARDIPINE/NS 20MG IVPB 20 MG/200 ML BAG 50 MG IV (10:07)
--- NOTE | 2024-11-29 10:12 | ESPR_ITS ---
<Statement entered by Roderick Ambriz MD - 11/30/24 07:58> I saw and examined patient personally and supervised PGY 1 resident, Dr. Miller with formulating a management plan. I agree with the documentation with the exceptions as listed below. At the time of interview patient was in severe distress, history obtained from chart review. 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 Patient was upgraded to the ICU for acute respiratory failure with hypercarbia and hypoxia secondary to bronchoconstriction from COPD exacerbation and medication side effect. Problem list: Acute respiratory failure with hypoxia secondary to COPD exacerbation?resolving S/p extubation 11/29 ICU delirium Aspiration pneumonia Obesity class III Hypertensive urgency Patient was successfully extubated today, and developed delirium subsequently. Had fluctuating periods of agitation and sedation needing frequent reorientation. Discontinued his Seroquel. He also patient's blood pressure was severely elevated with SBP's between 200s/240s. Nicardipine infusion was started and also scheduled on HCTZ, amlodipine and clonidine. Once patient's BP under control, will downgrade to the floor. Plan of care discussed with Attending Dr. Baldemar Ambriz MD PGY 2 Disclaimer: This note was dictated by speech recognition. Minor errors in key entry operator may be present due to voice recognition software. Documentation for date of: 11/29/24 Subjective Subjective Interval history: At the time of interview patient was in severe distress, history obtained from chart review. 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 Patient was initially admitted to the floor for COPD exacerbation and started on BiPAP, DuoNebs Q3 hourly, azithromycin 500 mg IV daily and Solu-Medrol 40 mg IV Q8 hourly. Overnight patient had a rapid response called for hypertensive urgency with systolic blood pressures in the 200s, he received hydralazine 10 mg IV x 1 and labetalol 10 mg IV x 1. Subsequently he developed worsening tachypnea and was unable to comply with BiPAP. ABG at that time showed pH 7.35, pCO2 54. Patient was upgraded to the ICU at 6:42 AM and the decision was made to intubate. ED attending, Dr. De Leon was in attendance. At 6:59 AM, etomidate 25 mg IV x 1 and rocuronium 100 mg IV x 1 were given for RSI. At 7:02 AM magnesium sulfate 2 g IV x 1 was given over 20 minutes for bronchoconstriction as well. First attempt using video laryngoscope was unsuccessful and patient was subsequently bagged for 15 minutes. During this time Solu-Medrol 250 mg IV x 1 was given. Second attempt at intubation was successful at 7:22 AM. Post intubation chest x-ray confirmed placement of tube 5 cm above jocelyn, subsequently it was advanced by 2 cm. Patient will be upgraded to the ICU for acute respiratory failure with hypercarbia and hypoxia secondary to bronchoconstriction from COPD exacerbation and medication side effect. Interval History 11/27/24: Overnight, patient was straight-cathed for 600 mL. Patient was examined at bedside; they remain intubated on AC/VC mode and sedated with fentanyl and propofol. On physical exam, a prolonged expiratory phase with significant wheezing is appreciated on auscultation of anterior lung segovia but the remainder of the exam was unremarkable. Notable labs today include WBC bump to 22.4 from 16.2 (patient is taking steroids and has been afebrile), BUN bump to 39 from 15, creatinine bump to 2.5 from 0.9, phosphorus 7.4 and magnesium 3.3. Ventilator settings were adjusted today to see if patient's respiratory status would improve under different conditions and a repeat ABG showed mild improvement (pH 7.26->7.28, pCO2 67->63, pO2 77->81, HCO3 30->30). Due to patient's significant wheezing on lung auscultation, administration of DuoNeb waas increased to q2HR scheduled. An attempt to reduce patient's sedation regimen today resulted in increased agitation and blood pressure elevation so the degree of weaning was dialed back. In terms of patient's new BLOSSOM today, the working theory is that it is either from the aggressive BEKA-inhibitor treatment he received upon admission or prerenal 2/2 intravascular depletion. To treat the BLOSSOM, patient was given a 500 mL bolus of free water and the rate of water flushes w/ tube feeding was increased from 30 mL/hr to 100 mL/hr with plans to continue monitoring his urinary output to assess hydration status and kidney function. Moving forward, patient's respiratory status will continue to be monitored for timely extubation as he continues on DuoNeb, prednisone, and antibiotics (azithromycin + ceftriaxone). 11/28/24: Overnight, patient managed to self-extubate himself despite being on bilateral wrist restraints and was subsequently reintubated after he developed respiratory distress. Sedation was achieved with propofol and fentanyl to maintain RASS of -3. His ABG was appropriate after intubation. However, there is concern that possible aspiration could have occurred due to this event as patient had tube feeds actively going at the time. Patient also continues to exhibit significant active wheeze. Urine output yesterday was 1200 mL and patient's BLOSSOM seems improved today after he was given fluid bolus and increased rate of water flushes. Seroquel was added yesterday to reduce the degree of agitation patient exhibits during sedation vacation. Additionally, patient's NG prednisone 60 mg was switched to IV solumedrol 40 mg q6HR. Due to ongoing need for intubation, patient continues to meet criteria for ICU management. 11/29/24: No overnight events. Today, patient exhibited good weaning parameters of improved ABG and CO2 gap and was subsequently weaned to PSV. On PSV, patient was found to have good Forced Vital Capacity and Negative Inspiratory Force and was then extubated to Oxygen Mask without issue. However, patient's blood pressure has remained significantly elevated while unsedated. He was given 20 mg of labetalol and 10 mg of diltiazem with improvement from 220 -> 180 and then started on hydrochlorothiazide 25. He was also started on nicardipine drip which was eventually titrated up to 13 mg/hr but his blood pressure continued to be high (nurse notified that he was around 182/98 on the monitor); it was then decided that he be given PO amlodipine 10 mg x 1 with the goal of keeping his BP in the 180s or lower (did not want to drop his BP too quickly) while also weaning him from the nicardipine drip. Plan to start BEKA inhibitor tomorrow if his renal function continues to improve. Patient was also given lactulose to help with making BMs (last one was over 3 days ago) as well as to drop his potassium (5.6 today). Exam Vital Signs Temp Pulse Resp BP Pulse Ox O2 Del Method O2 Flow Rate 99.3 F 95 14 203/115 H 14 L Mechanical Ventilation 6 11/29/24 08:01 11/29/24 10:07 11/29/24 10:06 11/29/24 10:07 11/29/24 10:07 11/29/24 08:01 11/29/24 10:06 FiO2 28 11/29/24 10:06 Narrative Exam Constitutional A&O x 3, obese male in no acute distress. HEENT Normocephalic, atraumatic, sclera anicteric. Respiratory Prolonged expiratory phase with significant wheezing appreciated on auscultation of anterior lung segovia (improved). No increased work of breathing or use of accessory muscles observed. Cardiovascular S1 and S2 audible, RRR. No murmurs appreciated. No gross JVD. Abdominal Soft, non-tender to palpation in all quadrants. No palpable masses, rebound tenderness, or guarding. Bowel sounds present Genitourinary Penis is circumcised with Long catheter in place. Some blood noted around urinary meatus. Extremities No edema, no clubbing, and no cyanosis appreciated. Skin Warm, dry and intact. No apparent lesions. Objective Labs 11/29/24 04:30 11/29/24 04:30 Labs: Laboratory Results - last 24 hr 11/29/24 11/29/24 04:30 05:04 WBC 11.2 H RBC 4.19 L Hgb 12.5 L Hct 38.8 L MCV 93 MCH 29.8 MCHC 32.2 RDW Std Deviation 42.8 Plt Count 194 Neut % (Auto) 89 H Lymph % (Auto) 4 L Elmore % (Auto) 5 Eos % (Auto) 0 Baso % (Auto) 0 Neut # (Auto) 9.9 H Lymph # (Auto) 0.5 L [place] # (Auto) 0.5 Eos # (Auto) 0.0 Baso # (Auto) 0.0 Immature Gran # (Auto) 0.23 H Absolute Nucleated RBC 0.00 Immature Gran % 2 H Nucleated RBC % 0 Puncture Site Right Radial ABG pH 7.39 ABG pCO2 55 H D ABG pO2 81 L D ABG HCO3 33 H ABG O2 Saturation 97 ABG Base Excess 7 H FiO2 35 Sodium 141 Potassium 5.6 H D Chloride 103 Carbon Dioxide 32.8 H Anion Gap 5 L BUN 26 H Creatinine 1.1 Estim Creat Clear Calc 96.5 eGFR > 60 BUN/Creatinine Ratio 24 H Glucose 142 H Calculated Osmolality 287 Calcium 8.7 Corrected Calcium 9.2 Phosphorus 2.9 Magnesium 2.7 H Albumin 3.4 L ABG Interpretation ABG results: 11/25/24 11/26/24 11/26/24 16:33 03:30 08:50 ABG pH 7.40 7.35 7.26 L ABG pCO2 44 54 H D 68 H D ABG pO2 61 L 89 D 118 H D ABG HCO3 28 H 30 H 30 H ABG O2 Saturation 92 97 98 ABG Base Excess 2 3 1 11/26/24 11/26/24 11/27/24 12:45 19:23 04:53 ABG pH 7.25 L 7.27 L 7.26 L ABG pCO2 68 H 64 H 67 H ABG pO2 81 L D 62 L 77 L ABG HCO3 30 H 30 H 30 H ABG O2 Saturation 95 90 L 95 ABG Base Excess 1 1 1 11/27/24 11/28/24 11/28/24 09:52 05:15 07:24 ABG pH 7.28 L 7.34 L 7.30 L ABG pCO2 63 H 60 H 67 H ABG pO2 81 L 81 L 360 H D ABG HCO3 30 H 32 H 33 H ABG O2 Saturation 96 96 101 H ABG Base Excess 1 5 H 4 H 11/29/24 05:04 ABG pH 7.39 ABG pCO2 55 H D ABG pO2 81 L D ABG HCO3 33 H ABG O2 Saturation 97 ABG Base Excess 7 H Quality Measures Quality Measures none Assessment & Plan Assessment Current Active Medications: Generic Name Dose Route Start Last Admin Trade Name Freq PRN Reason Stop Dose Admin Acetaminophen 650 mg 11/26/24 15:28 Acetaminophen Keisha 325 Mg/10 Ml Udc NG 12/25/24 16:04 Q6H PRN Pain 1-3 and/or Fever >100 Albuterol/Ipratropium 3 ml 11/25/24 16:34 11/27/24 04:52 Albuterol/Ipratropium (Duoneb) Rt Keisha 3 Ml Nebu INH 12/25/24 16:33 3 ml Q2HR PRN Administration SHORTNESS OF BREATH OR WHEEZE Albuterol/Ipratropium 3 ml 11/27/24 09:15 11/29/24 06:29 Albuterol/Ipratropium (Duoneb) Rt Keisha 3 Ml Nebu INH 12/27/24 09:14 3 ml Q2H RANDELL Administration Dextrose 50 ml 11/26/24 15:36 Dextrose 50%-Water Inj 50 Ml Syringe IV 12/26/24 15:35 Q15MIN PRN BG <50 OR BG <70 & pt unresponsive Enalaprilat 0.625 mg 11/26/24 15:21 Enalaprilat Inj 1.25 Mg/Ml Vial IVP 12/26/24 15:20 Q6HR PRN SBP > 180 Enoxaparin Sodium 40 mg 11/26/24 21:00 11/29/24 08:54 Enoxaparin Sod Inj 40 Mg/0.4 Ml Syringe SC 12/10/24 20:59 40 mg BID RANDELL Administration Hydralazine HCl 10 mg 11/25/24 22:26 Hydralazine Inj 20 Mg/Ml Vial IVP 12/25/24 18:37 X1 PRN BP>180/100 HR<85 Fentanyl Citrate 2,500 mcg in 250 mls @ 2.5 mls/hr 11/26/24 06:53 11/29/24 06:00 Sublimaze Inj 2,500 Mcg/250 Ml Bag IV 12/01/24 06:52 275 mcg/hr .Q24H PRN 27.5 mls/hr PER PROTOCOL Titration Protocol 25 MCG/HR Propofol 1,000 mg in 100 mls @ 3.606 mls/hr 11/26/24 07:00 11/29/24 06:00 Diprivan Ivpb IV 12/26/24 06:59 30 mcg/kg/min .Q24H PRN 21.636 mls/hr PER PROTOCOL Titration Protocol 5 MCG/KG/MIN Ceftriaxone Sodium/Dextrose 1 gm in 50 mls @ 100 mls/hr 11/26/24 08:33 11/29/24 08:54 Rocephin/D5w 1gm Iv Premix IV 12/03/24 08:32 100 mls/hr QDAY RANDELL Administration Norepinephrine/Dextrose 8 mg in 250 mls @ 11.269 mls/hr 11/26/24 15:22 11/27/24 05:00 Levophed In D5w 8mg/250ml IV 12/26/24 15:21 0 mcg/kg/min .[id number] PRN 0 mls/hr PER PROTOCOL Titration Protocol 0.05 MCG/KG/MIN Nicardipine/Sodium Chloride 20 mg in 200 mls @ 50 mls/hr 11/29/24 09:35 11/29/24 10:07 Cardene Ivpb IV 12/29/24 09:34 5 mg/hr .Q4H PRN 50 mls/hr PER PROTOCOL Administration Protocol 5 MG/HR Methylprednisolone Sodium Succinate 40 mg 11/28/24 12:00 11/29/24 05:22 Methylprednisolone Sod Succ 40 Mg/Ml Vial IVP 12/05/24 11:59 40 mg Q6HR RANDELL Administration Nicotine 21 mg 11/26/24 15:45 11/29/24 08:54 Nicotine Patch 21 Mg/24 Hr Patch.Td24 TOP 12/26/24 15:44 21 mg QDAY RANDELL Administration Pantoprazole Sodium 40 mg 11/26/24 09:00 11/29/24 08:55 Pantoprazole Inj 40 Mg Vial IVP 12/26/24 08:59 40 mg QDAY RANDELL Administration Quetiapine Fumarate 25 mg 11/28/24 09:00 11/28/24 20:13 Quetiapine Fumarate 25 Mg Tablet PO 12/28/24 08:59 25 mg BID RANDELL Administration Fluticasone/Salmeterol 1 puff 11/25/24 19:00 11/26/24 08:10 Fluticasone/Salmeterol 250/50 14 Dose Inh INH 12/25/24 18:59 Not Given On Hold: 11/26/24 07:56 BIDRT RANDELL Sodium Chloride 3 ml 11/25/24 12:23 11/25/24 12:31 Sodium Chloride Rt Keisha 0.9% 3 Ml Nebu INH 12/25/24 12:22 3 ml PRN PRN Administration SOLN Plan Patient is a 54-year-old male with a past medical history significant for COPD not on home oxygen, chronic nicotine dependence, 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 Patient will be upgraded to the ICU for acute respiratory failure with hypercarbia and hypoxia secondary to bronchoconstriction from COPD exacerbation and medication side effect. No overnight events. Today, patient exhibited good weaning parameters of improved ABG and CO2 gap and was subsequently weaned to PSV. On PSV, patient was found to have good Forced Vital Capacity and Negative Inspiratory Force and was then extubated to Oxygen Mask without issue. However, patient's blood pressure has remained significantly elevated while unsedated. He was given 20 mg of labetalol and 10 mg of diltiazem with improvement from 220 -> 180 and then started on hydrochlorothiazide 25. He was also started on nicardipine drip which was eventually titrated up to 13 mg/hr but his blood pressure continued to be high (nurse notified that he was around 182/98 on the monitor); it was then decided that he be given PO amlodipine 10 mg x 1 with the goal of keeping his BP in the 180s or lower (did not want to drop his BP too quickly) while also weaning him from the nicardipine drip. Plan to start BEKA inhibitor tomorrow if his renal function continues to improve. Patient was also given lactulose to help with making BMs (last one was over 3 days ago) as well as to drop his potassium (5.6 today). NEURO No active problems CVS Hypertensive urgency Patient's blood pressures have once again become significantly elevated after being weaned off of sedation He was given 20 mg labetalol and 10 mg diltiazem (improved BP from 220 -> 180). He was also started on PO hydrochlorothiazide 25 mg, started on nicardipine drip, and given PO amlodipine 10 mg x 1 Rx: -PO amlodipine 10 mg qD -PO clonidine 0.1 mg q12HR -PO hydralazine 50 mg q8HR -PO hydrochlorothiazide 25 mg qD -Plan to start BEKA inhibitor tomorrow if renal function continues to improve RRX: -Patient's HTN has remained high but given his BLOSSOM development when his BP was abruptly dropped 2 days ago, the aim currently is to slowly improve BP and maintain a goal BP of 180 or less for now while weaning patient off of nicardipine drip PULM #Acute respiratory failure 2/2 COPDE, s/p extubation (resolved) Patient presented with worsening shortness of breath and was initially on BiPAP with DuoNebs every 4 hourly. Patient received labetalol IV after which he developed worsening tachypnea and dyspnea unamenable to BiPAP and requiring subsequent intubation and mechanical ventilation. 11/28 patient self-extubated while tube feeds were running leading to aspiration event, was reintubated (2nd intubation) Now, on 11/29, patient has been extubated and his respiratory status has clinically stabilized on room air #Aspiration pneumonitis 11/28 patient self-extubated while tube feeds were running leading to aspiration event, was reintubated (2nd intubation) Dx: -11/29 CXR shows prominent pneumonia of the left lung base that is improved from 11/28 Rx: -Continue azithromycin and ceftrixone -Continue solumedrol 40 mg q6HR (will reduce to q12HR tomorrow) -Continue Duoneb q2HR as needed and q4HR scheduled RRx: -Patient still continues to exhibit significant active wheezing but appears to be slowly improving GI/Hep #Constipation Rx: -Patient has not pooped in 3 days and will be given lactulose to help with BMs as well as reducing his potassium (5.6 today) RENAL #BLOSSOM, likely prerenal (resolving) Likely 2/2 abrupt drop in BP 2 days ago Dx: -Creatinine has down-trended to 1.1 from 1.4 yesterday Rx: -Encourage PO hydration and monitor UOP #Hyperkalemia Patient's K uptrended to 5.6 from 5.0 Rx: -Patient has been started on PO hydrochlorothiazide 25 mg qD and was also give lactulose today HEME/ONC Leukocytosis (resolving) Initial WBC elevation to 20+ were likely 2/2 continued steroid administration and reactive WBC down-trended today and is 11.2 ENDO Prediabetic Dx: -11/27/24 hemoglobin A1c was 5.9% Rx: -Continue monitoring blood sugars RRX: -Patient's blood sugars have been adequately controlled ID No acute problems MSK/DERM No acute problems ICU Health maintenance: Dispo: Patient's blood pressures remain significantly elevated and refractory to anti-hypertensive regimens, will continue ICU management. Diet: NPO DVT ppx: Enoxaparin 40 mg SC twice daily GI ppx: Protonix 40mg qD Mechanical Ventilation: No Sedation: No IV lines: 2 pIV Central line: No Arterial line: No Long: Yes (11/27) Code status: FULL CODE Plan of care discussed with Attending Dr. Baldemar Miller, DO Internal Medicine, PGY-1
--- NOTE | 2024-11-29 11:51 | PC.RT ---
Dr Corrales at bedside assessing PT, States stridor is not present.
--- NOTE | 2024-11-29 11:57 | ESPR_ITS ---
Documentation for date of: 11/29/24 Subjective Subjective Interval history: This is a 54yo M who presented to the hospital on 25 November. He initially presented for shortness of breath and COPD exacerbation. He decompensated and ultimately required intubation early in the morning of the . He was intubated and sedated and brought over to the ICU. There were no acute overnight events. He was straight cathed for 600 cc overnight. He remains afebrile. 11/28- overnight pt self extubated and was reintubated, possible aspiration as pt had tube feeds actively going. good UOP, afebrile 11/29- no acute overnight events, improvement in CO2 gap noted, good UOP, tolerated tube feeds, afebrile, Critical Care Note Critical care time (min.): 40 Exam Vital Signs Temp Pulse Resp BP Pulse Ox O2 Del Method O2 Flow Rate 99.3 F 93 12 203/115 H 96 Mechanical Ventilation 6 11/29/24 08:01 11/29/24 11:39 11/29/24 11:39 11/29/24 10:07 11/29/24 11:39 11/29/24 08:01 11/29/24 10:06 FiO2 35 11/29/24 11:39 Narrative Exam Gen- NAD, restless on prop and fent, obese, HEENT- NC/AT, mucosa hydrated, sclera anicteric, ETT/OGT in place Chest- b/l expiratory wheeze present perhaps slightly improved from yesterday, HRRR, no increase in WOB, no use of accessory muscles Abd- s/nt/bs+ Ext- no edema, pulses palp, no clubbing, no mottling, moves all 4 Vent PRVC Drips prop fent Physical Exam Completion Physical Exam Complete?: Yes Objective - Health And Safety Coordinator Labs 11/29/24 04:30 11/29/24 04:30 Labs: Laboratory Results - last 24 hr 11/29/24 11/29/24 04:30 05:04 WBC 11.2 H RBC 4.19 L Hgb 12.5 L Hct 38.8 L MCV 93 MCH 29.8 MCHC 32.2 RDW Std Deviation 42.8 Plt Count 194 Neut % (Auto) 89 H Lymph % (Auto) 4 L [place] % (Auto) 5 Eos % (Auto) 0 Baso % (Auto) 0 Neut # (Auto) 9.9 H Lymph # (Auto) 0.5 L [place] # (Auto) 0.5 Eos # (Auto) 0.0 Baso # (Auto) 0.0 Immature Gran # (Auto) 0.23 H Absolute Nucleated RBC 0.00 Immature Gran % 2 H Nucleated RBC % 0 Puncture Site Right Radial ABG pH 7.39 ABG pCO2 55 H D ABG pO2 81 L D ABG HCO3 33 H ABG O2 Saturation 97 ABG Base Excess 7 H FiO2 35 Sodium 141 Potassium 5.6 H D Chloride 103 Carbon Dioxide 32.8 H Anion Gap 5 L BUN 26 H Creatinine 1.1 Estim Creat Clear Calc 96.5 eGFR > 60 BUN/Creatinine Ratio 24 H Glucose 142 H Calculated Osmolality 287 Calcium 8.7 Corrected Calcium 9.2 Phosphorus 2.9 Magnesium 2.7 H Albumin 3.4 L Assessment & Plan Additional Plan Additional Plan: In brief this is a 54-year-old male admitted to the ICU for acute respiratory distress secondary to COPD currently intubated and sedated a/p [employer] sedated CV HTN- currently poorly controlled as pts sedation is lightened - given 20mg of labetalol and 10mg of dilt with improvement from 220->180 - start HCTZ 25 - on prn - start ACEI tmw if renal function continues to improve - given development of BLOSSOM with abrupt drop in BP 2 days ago would aim to slowly improve BP - started on nicardipine gtt and will cont to ween Resp Acute Resp Failure- 2/2 COPDE - improved ABG this AM - improved CO2 gap - weened to PSV and did well - good weening parameters with good FVT and NIF - will be extubated today Aspiration pneumonitis- covered with ceftri - improving - 2/2 self extubation COPDE- currently on nebs and steroids, significant active wheezing - on ceftri/azithro - on solumedrol 40mg q6 -> ween to q12 tmw - nebs q2hr prn and q4hr scheduled - still with significant active wheeze but appears to be slowly improving Renal BLOSSOM- improved - 2/2 drop in BP - good UOP GI GI proph- PPI Constipation- started on bowel regimen HyperK- started on diuretic as well as given lactulose for constipation - anticipate improvement with above Endo stable Heme Leukoctyosis- likely 2/2 steroids, afebrile - trending down DVT proph- lovenox ID stable case d/w ICU team d/w family at bedside labs, imaging, records reviewed ~40ccmin required for eval, exam, review, intervention, discussion and formulation of POC for this critically ill pt with acute resp failure currently intubated and on MV Provider Notation Provider Notation: Although this document has been carefully reviewed, there may still be some phonetic and other typographical errors. These errors are purely grammatical due to imperfections in the software program and should not be construed in any way to compromise the substance of the patient's medical care during this visit. Thank you for the opportunity and privilege in assisting you with this patient's care and management.
[2024-11-29] MEDS: NICARDIPINE/NS 20MG IVPB 20 MG/200 ML BAG 30 MG IV (13:53)
--- NOTE | 2024-11-29 16:40 | PC.SS ---
Update: Patient extubated. Off sedation. Not receiving pressor support. Afebrile. Blood pressure is elevated. Family at bedside visiting.
[2024-11-29] MEDS: LACTULOSE SYRUP 20 GM/30 ML UDC PO (16:41)
[2024-11-29 17:51] LABS: Index Value <0.50
[2024-11-29] MEDS: NICARDIPINE/NS 20MG IVPB 20 MG/200 ML BAG 80 MG IV (17:54)
--- NOTE | 2024-11-29 19:49 | PC.RT ---
CPT given to patient. Only able to do it twice, unable to complete any more than that
--- NOTE | 2024-11-29 19:57 | PC.NURSE ---
at 0940, clarified nicardapine gtt protocol with pharmacy, per pharmacy, once goal BP is reached, vital signs taken every 30 minutes
[2024-11-29] MEDS: NICARDIPINE/NS 20MG IVPB 20 MG/200 ML BAG 130 MG IV (21:04)
[2024-11-29] MEDS: HALOPERIDOL LACT INJ 5 MG/ML VIAL 1 MG IV (21:34)
[2024-11-29] MEDS: NICARDIPINE/NS 20MG IVPB 20 MG/200 ML BAG 105 MG IV (23:57)
[2024-11-30] VITALS (41 sets, daily range): BP systolic 138–188; BP diastolic 87–145; PULSE 72–172; RESP 12–92; TEMP 35.9–36.7; O2SAT 89–99; BMI 37.0
[2024-11-30 00:53] LABS: Base Excess 7 (-3-3); HCO3 31 mEq/L (20-26); Inspired Oxygen, FIO2 21 %; O2 Saturation 90 % (91-98); PCO2 43 mmHg (32.0-48.0); pH, Arterial 7.48 (7.35-7.45)
[2024-11-30 00:55] LABS: Allen Test Performed/OK; PO2 53 mmHg (83-108); Puncture Site Right Radial
[2024-11-30 01:02] LABS: Anion Gap 7 (7-16); BUN/Creatinine Ratio 25 Ratio (12-20); Blood Urea Nitrogen 25 mg/dL (9-23); Calcium 9.3 mg/dL (8.3-10.6); Carbon Dioxide 29.2 mMol/L (20.0-31.0); Chloride 100 mMol/L (98-107); Creatinine (Component) 1.0 mg/dL (0.6-1.3); Estimated Creatinine Clearance 106.1 mL/min (>60); Glucose 152 mg/dL (74-106); Osmolality,Calculated 279 (275-295); Potassium 4.6 mMol/L (3.4-5.1); Sodium 136 mMol/L (136-145); eGFR > 60 See Note
[2024-11-30 01:24] LABS: Allen Test Performed/OK; Base Excess 7 (-3-3); HCO3 31 mEq/L (20-26); Inspired Oxygen, FIO2 21 %; O2 Saturation 93 % (91-98); PCO2 43 mmHg (32.0-48.0); PO2 60 mmHg (83-108); Puncture Site Right Radial; pH, Arterial 7.48 (7.35-7.45)
[2024-11-30] MEDS: ALBUTEROL/IPRATROPIUM (Duoneb) RT SOL 3 ML NEBU INH ×8 (01:30→22:38)
[2024-11-30] MEDS: NICARDIPINE/NS 20MG IVPB 20 MG/200 ML BAG 105 MG IV (01:40)
[2024-11-30] MEDS: NICARDIPINE/NS 20MG IVPB 20 MG/200 ML BAG 80 MG IV (04:07)
[2024-11-30 05:19] LABS: Basophils # (Auto) 0.1 Thou/mm3 (0.0-0.2); Basophils % (Auto) 1 % (0-2.5); Eosinophils # (Auto) 0.0 Thou/mm3 (0.0-0.5); Eosinophils % (Auto) 0 % (0-10); Hematocrit 47.8 % (41.0-53.0); Hemoglobin 15.9 g/dL (13.5-16.0); Immature Granulocytes Auto 0.50 Thou/mm3 (0.00-0.00); Lymphocytes # (Auto) 0.5 Thou/mm3 (1.0-4.8); Lymphocytes % (Auto) 4 % (10-50); Mean Corpuscular HGB Conc 33.3 g/dl (31.0-37.0); Mean Corpuscular Hemoglobin 29.2 pg (25.0-35.0); Mean Corpuscular Volume 88 fL (80-100); Monocytes # (Auto) 0.8 Thou/mm3 (0.0-0.8); Monocytes % (Auto) 6 % (0-12); Neutrophils # (Auto) 12.0 Thou/mm3 (1.8-7.7); Neutrophils % (Auto) 87 % (37-80); Nucleated Red Blood Cell # 0.00 Thou/mm3 (0.00-0.00); Nucleated Red Blood Cell % 0 /100 WBC (0); Platelet Count 228 Thou/mm3 (140-440); RDW Standard Deviation 39.7 fL (35.1-43.9); Red Blood Count 5.44 Miln/mm3 (4.50-5.90); White Blood Count 13.8 Thou/mm3 (3.8-10.6)
[2024-11-30 06:06] LABS: Albumin, Serum 4.3 gm/dL (3.5-5.0); Anion Gap 8 (7-16); BUN/Creatinine Ratio 29 Ratio (12-20); Blood Urea Nitrogen 26 mg/dL (9-23); Calcium 9.6 mg/dL (8.3-10.6); Calcium (Corrected) 9.6 mg/dL (8.5-10.1); Carbon Dioxide 28.1 mMol/L (20.0-31.0); Chloride 100 mMol/L (98-107); Creatinine (Component) 0.9 mg/dL (0.6-1.3); Estimated Creatinine Clearance 117.9 mL/min (>60); Glucose 148 mg/dL (74-106); Magnesium 2.3 mg/dL (1.6-2.6); Osmolality,Calculated 279 (275-295); Phosphorous 2.7 mg/dL (2.4-5.1); Potassium 4.4 mMol/L (3.4-5.1); Sodium 136 mMol/L (136-145); eGFR > 60 See Note
[2024-11-30] MEDS: NICARDIPINE/NS 20MG IVPB 20 MG/200 ML BAG 55 MG IV (06:45)
[2024-11-30 06:56] LABS: Aspergillus Ag, Ser* NOT DETECTED
[2024-11-30] MEDS: NICOTINE PATCH 21 MG/24 HR PATCH.TD24 TOP (09:00)
[2024-11-30] MEDS: cefTRIAXone/D5w 1gm IV premix 1 GM/50 ML BAG IV (09:04)
[2024-11-30] MEDS: ENOXAPARIN SOD INJ 40 MG/0.4 ML SYRINGE SC (09:04)
--- NOTE | 2024-11-30 09:16 | XR_ITS ---
Examination: Renal sonography, renal Doppler sonographic evaluation including assessment peak systolic velocities Date and time: November 30, 2024 1331 hours INDICATIONS: Secondary hypertension workup hypertension diagnoses 3 days ago TECHNIQUE AND FINDINGS: Sonographic images kidneys including assessment peak systolic velocities, calculation resistive indices and renal artery ratios Right kidney 12.5 cm cortex 1.7 cm Left kidney 13.7 cm cortex 2.1 cm No bilateral elevation of peak systolic velocities Bilateral normal resistive indices Bilateral normal renal aortic ratios Moderate bilateral renal scarring IMPRESSION: No renal Doppler sonographic findings of renal artery stenosis
--- NOTE | 2024-11-30 10:45 | PD.INTPROG ---
Documentation for date of: 11/30/24 Subjective Subjective Interval history: This is a 54yo M who presented to the hospital on 25 November. He initially presented for shortness of breath and COPD exacerbation. He decompensated and ultimately required intubation early in the morning of the . He was intubated and sedated and brought over to the ICU. There were no acute overnight events. He was straight cathed for 600 cc overnight. He remains afebrile. 11/28- overnight pt self extubated and was reintubated, possible aspiration as pt had tube feeds actively going. good UOP, afebrile 11/29- no acute overnight events, improvement in CO2 gap noted, good UOP, tolerated tube feeds, afebrile, 11/30- no acute overnight events, extubed successfully yesterday, remains on nicardipine gtt for BP control, currently on 4 meds for BP control, good UOP, afebrile Critical Care Note Critical care time (min.): 0 Exam Vital Signs Temp Pulse Resp BP Pulse Ox O2 Del Method O2 Flow Rate 97.6 F 89 18 154/91 H 94 L Room Air 6 11/30/24 04:01 11/30/24 09:04 11/30/24 06:05 11/30/24 09:04 11/30/24 06:05 11/29/24 16:01 11/29/24 13:45 FiO2 28 11/29/24 13:45 Narrative Exam Gen- NAD, awake alert and intermittently aggresive in nature, obese HEENT- NC/AT, mucosa hydrated, sclera anicteric, EOMI Chest- LCTAB with resolution of audible wheezing, HRRR, no increase in WOB Abd- s/nt/bs+ Ext- no edema, pulses palp, no clubbing, no mottling, moves all 4, no focal deficits drips nicardipine Physical Exam Completion Physical Exam Complete?: Yes 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 11/30/24 04:39 11/30/24 04:39 Labs: Laboratory Results - last 24 hr 11/25/24 11/30/24 11/30/24 12:34 00:30 00:40 WBC RBC Hgb Hct MCV MCH MCHC RDW Std Deviation Plt Count Neut % (Auto) Lymph % (Auto) Hart % (Auto) Eos % (Auto) Baso % (Auto) Neut # (Auto) Lymph # (Auto) Hart # (Auto) Eos # (Auto) Baso # (Auto) Immature Gran # (Auto) Absolute Nucleated RBC Immature Gran % Nucleated RBC % Puncture Site Right Radial ABG pH 7.48 H ABG pCO2 43 D ABG pO2 53 L* D ABG HCO3 31 H ABG O2 Saturation 90 L ABG Base Excess 7 H FiO2 21 Sodium 136 Potassium 4.6 D Chloride 100 Carbon Dioxide 29.2 Anion Gap 7 BUN 25 H Creatinine 1.0 Estim Creat Clear Calc 106.1 eGFR > 60 BUN/Creatinine Ratio 25 H Glucose 152 H Calculated Osmolality 279 Calcium 9.3 Corrected Calcium Phosphorus Magnesium Albumin Aspergillus Ag (EIA) NOT DETECTED Aspergillus Index Value <0.50 11/30/24 11/30/24 01:14 04:39 WBC 13.8 H RBC 5.44 Hgb 15.9 D Hct 47.8 MCV 88 MCH 29.2 MCHC 33.3 RDW Std Deviation 39.7 Plt Count 228 D Neut % (Auto) 87 H Lymph % (Auto) 4 L Hart % (Auto) 6 Eos % (Auto) 0 Baso % (Auto) 1 Neut # (Auto) 12.0 H Lymph # (Auto) 0.5 L Hart # (Auto) 0.8 Eos # (Auto) 0.0 Baso # (Auto) 0.1 Immature Gran # (Auto) 0.50 H Absolute Nucleated RBC 0.00 Immature Gran % 4 H Nucleated RBC % 0 Puncture Site Right Radial ABG pH 7.48 H ABG pCO2 43 ABG pO2 60 L ABG HCO3 31 H ABG O2 Saturation 93 ABG Base Excess 7 H FiO2 21 Sodium 136 Potassium 4.4 Chloride 100 Carbon Dioxide 28.1 Anion Gap 8 BUN 26 H Creatinine 0.9 Estim Creat Clear Calc 117.9 eGFR > 60 BUN/Creatinine Ratio 29 H Glucose 148 H Calculated Osmolality 279 Calcium 9.6 Corrected Calcium 9.6 Phosphorus 2.7 Magnesium 2.3 Albumin 4.3 D Aspergillus Ag (EIA) Aspergillus Index Value Assessment & Plan Additional Plan Additional Plan: In brief this is a 54-year-old male admitted to the ICU for acute respiratory distress secondary to COPD currently intubated and sedated a/p [employer] Agitated- pt is intermittently aggresive/hostile, unclear if this is baseline or an aspect of delerium CV HTN urgency- on nicaripine gtt -> cont to ween - on HCTZ 25mg - Norvasc 10mg - clonidine 0.1mg q12 - Hydralazine 50mg q8 - remains hypertensive, will start workup for refractory/ secondary hypertension today - echo did not show LVH Resp Acute Resp Failure- 2/2 COPDE - now resolved Aspiration pneumonitis- covered with ceftri - improving - 2/2 self extubation - complete 5 day course COPDE- currently on nebs and steroids-> improving today - on ceftri/azithro - on solumedrol 40mg q12 today cont for total 48hrs and then ween down to Pred 60mg - nebs q2hr prn and q4hr scheduled Renal BLOSSOM- improved - 2/2 drop in BP - good UOP - resolved today GI GI proph- PPI Constipation- started on bowel regimen HyperK- resolved Endo stable Heme Leukoctyosis- likely 2/2 steroids, afebrile - trending down DVT proph- lovenox ID Aspiration PNA case d/w ICU team labs, imaging, records reviewed ~38min required for eval, exam, review, intervention, discussion and formulation of POC for this critically ill pt with acute resp failure currently intubated and on MV Provider Notation Provider Notation: Although this document has been carefully reviewed, there may still be some phonetic and other typographical errors. These errors are purely grammatical due to imperfections in the software program and should not be construed in any way to compromise the substance of the patient's medical care during this visit. Thank you for the opportunity and privilege in assisting you with this patient's care and management.
--- NOTE | 2024-11-30 12:10 | ESPR_ITS ---
<Statement entered by Roderick Ambriz MD - 11/30/24 18:38> I saw and examined patient personally and supervised PGY 1 resident, Dr. Miller with formulating a management plan. I agree with the documentation with the exceptions as listed below. At the time of interview patient was in severe distress, history obtained from chart review. 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 Patient was upgraded to the ICU for acute respiratory failure with hypercarbia and hypoxia secondary to bronchoconstriction from COPD exacerbation and medication side effect. Problem list: 1. Acute respiratory failure with hypoxia secondary to COPD exacerbation?resolving 2. S/p extubation 11/29 3. ICU delirium?resolving 4. Aspiration pneumonia 5. Obesity class III 6. Hypertensive urgency?resolving Since patient's extubation on 11/29 his mentation has been agitated with waxing and waning consciousness. However today he is much more alert and closer to his baseline as reported by family members. For his COPD exacerbation, methylprednisolone was weaned to 40 mg IV every 12 hourly, DuoNebs every 4 hourly along with chest physiotherapy Q4 hourly while awake. Also he is on ceftriaxone IV daily COPD exacerbation and possible aspiration pneumonia. With regards to patient's hypertensive urgency, he is on hydralazine 50 mg p.o. every 8 hourly, amlodipine 10 mg p.o. daily, clonidine 0.1 mg p.o. Q12 hourly and HCTZ 25 mg p.o. daily. Nicardipine infusion was discontinued at 10 AM today. Due to patient's treatment resistant hypertension, workup for secondary causes was initiated. Renal artery Doppler was negative for any stenosis. Currently pending renin, aldosterone, cortisol and urine metanephrine levels. However, the more likely explanation is patient undiagnosed DARLINE leading to hypertension. While he sleeps he has witnessed snoring episodes and sometimes apneic pauses. Today he asked for the CPAP machine while he was napping, however when the RT came into the room he changed his mind. Recommend outpatient sleep study and pulmonology referral. At this point patient is clinically stable for downgrade to telemetry. Plan of care discussed with Attending Dr. Baldemar Ambriz MD PGY 2 Disclaimer: This note was dictated by speech recognition. Minor errors in administration vice president may be present due to voice recognition software. Documentation for date of: 11/30/24 Subjective Subjective Interval history: At the time of interview patient was in severe distress, history obtained from chart review. 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 Patient was initially admitted to the floor for COPD exacerbation and started on BiPAP, DuoNebs Q3 hourly, azithromycin 500 mg IV daily and Solu-Medrol 40 mg IV Q8 hourly. Overnight patient had a rapid response called for hypertensive urgency with systolic blood pressures in the 200s, he received hydralazine 10 mg IV x 1 and labetalol 10 mg IV x 1. Subsequently he developed worsening tachypnea and was unable to comply with BiPAP. ABG at that time showed pH 7.35, pCO2 54. Patient was upgraded to the ICU at 6:42 AM and the decision was made to intubate. ED attending, Dr. De Leon was in attendance. At 6:59 AM, etomidate 25 mg IV x 1 and rocuronium 100 mg IV x 1 were given for RSI. At 7:02 AM magnesium sulfate 2 g IV x 1 was given over 20 minutes for bronchoconstriction as well. First attempt using video laryngoscope was unsuccessful and patient was subsequently bagged for 15 minutes. During this time Solu-Medrol 250 mg IV x 1 was given. Second attempt at intubation was successful at 7:22 AM. Post intubation chest x-ray confirmed placement of tube 5 cm above jocelyn, subsequently it was advanced by 2 cm. Patient will be upgraded to the ICU for acute respiratory failure with hypercarbia and hypoxia secondary to bronchoconstriction from COPD exacerbation and medication side effect. Interval History 11/27/24: Overnight, patient was straight-cathed for 600 mL. Patient was examined at bedside; they remain intubated on AC/VC mode and sedated with fentanyl and propofol. On physical exam, a prolonged expiratory phase with significant wheezing is appreciated on auscultation of anterior lung seg[place] but the remainder of the exam was unremarkable. Notable labs today include WBC bump to 22.4 from 16.2 (patient is taking steroids and has been afebrile), BUN bump to 39 from 15, creatinine bump to 2.5 from 0.9, phosphorus 7.4 and magnesium 3.3. Ventilator settings were adjusted today to see if patient's respiratory status would improve under different conditions and a repeat ABG showed mild improvement (pH 7.26->7.28, pCO2 67->63, pO2 77->81, HCO3 30->30). Due to patient's significant wheezing on lung auscultation, administration of DuoNeb waas increased to q2HR scheduled. An attempt to reduce patient's sedation regimen today resulted in increased agitation and blood pressure elevation so the degree of weaning was dialed back. In terms of patient's new BLOSSOM today, the working theory is that it is either from the aggressive BEKA-inhibitor treatment he received upon admission or prerenal 2/2 intravascular depletion. To treat the BLOSSOM, patient was given a 500 mL bolus of free water and the rate of water flushes w/ tube feeding was increased from 30 mL/hr to 100 mL/hr with plans to continue monitoring his urinary output to assess hydration status and kidney function. Moving forward, patient's respiratory status will continue to be monitored for timely extubation as he continues on DuoNeb, prednisone, and antibiotics (azithromycin + ceftriaxone). 11/28/24: Overnight, patient managed to self-extubate himself despite being on bilateral wrist restraints and was subsequently reintubated after he developed respiratory distress. Sedation was achieved with propofol and fentanyl to maintain RASS of -3. His ABG was appropriate after intubation. However, there is concern that possible aspiration could have occurred due to this event as patient had tube feeds actively going at the time. Patient also continues to exhibit significant active wheeze. Urine output yesterday was 1200 mL and patient's BLOSSOM seems improved today after he was given fluid bolus and increased rate of water flushes. Seroquel was added yesterday to reduce the degree of agitation patient exhibits during sedation vacation. Additionally, patient's NG prednisone 60 mg was switched to IV solumedrol 40 mg q6HR. Due to ongoing need for intubation, patient continues to meet criteria for ICU management. 11/29/24: No overnight events. Today, patient exhibited good weaning parameters of improved ABG and CO2 gap and was subsequently weaned to PSV. On PSV, patient was found to have good Forced Vital Capacity and Negative Inspiratory Force and was then extubated to Oxygen Mask without issue. However, patient's blood pressure has remained significantly elevated while unsedated. He was given 20 mg of labetalol and 10 mg of diltiazem with improvement from 220 -> 180 and then started on hydrochlorothiazide 25. He was also started on nicardipine drip which was eventually titrated up to 13 mg/hr but his blood pressure continued to be high (nurse notified that he was around 182/98 on the monitor); it was then decided that he be given PO amlodipine 10 mg x 1 with the goal of keeping his BP in the 180s or lower (did not want to drop his BP too quickly) while also weaning him from the nicardipine drip. Plan to start BEKA inhibitor tomorrow if his renal function continues to improve. Patient was also given lactulose to help with making BMs (last one was over 3 days ago) as well as to drop his potassium (5.6 today). 11/30/24: No overnight events. Patient was examined at bedside; he is alert and oriented x 2 (can answer what his full name is, answers medical when asked where he is, could not answer what year it was, what month it was, or who was the current president). However, later in the day he seemed to become less confused and more lucid (A & O x 3). His systolic blood pressure is around 160 on monitor at the time of interview while on amlodipine, clonidine, hydralazine, hydrochlorothiazide, and nicardipine drip. The underlying etiology behind this significantly refractory hypertension is unknown and further work-up including renal Doppler flow, urine metanephrines, renin-angiotensin ratio, and AM cortisol have been ordered. 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 Patient requested to be put back on CPAP today, saying that it helped him (however, when respiratory technicians had arrived, he changed his mind again). When queried on whether he uses a CPAP at home he replied in the negative but endorsed daytime somnolence. In the setting of refractory hypertension, obesity, male sex, age 40+, witnessed snoring and long neck circumference, DARLINE seems the most plausible diagnosis at this time and he may benefit from outpatient polysomnography / sleep study. The BLOSSOM initially precipitated by likely blood pressure drop is completely resolved. In terms of his diagnosis of COPD exacerbation, he will have his last dose of ceftriaxone today and be continued on his IV solumedrol 40 mg at a reduced frequency of q12HR as well as scheduled Duoneb q4HR and q2HR prn. Due to patient's clinical stability, the decision was made to wean patient off of nicardipine drip (with a goal of maintaining SBP at 180 or lower) and downgrade him to floors today. Exam Vital Signs Temp Pulse Resp BP Pulse Ox O2 Del Method O2 Flow Rate 97.4 F 87 16 158/96 H 92 L Room Air 6 11/30/24 12:11/30/24 12:11/30/24 12:11/30/24 12:11/30/24 12:11/29/24 16:01 11/29/24 13:45 FiO2 28 11/29/24 13:45 Narrative Exam Constitutional A&O x 2, somnolent, obese male in no acute distress. HEENT Normocephalic, atraumatic, sclera anicteric. Respiratory Prolonged expiratory phase with no wheezing appreciated on auscultation of anterior lung segovia (vastly improved). No increased work of breathing or use of accessory muscles observed. Cardiovascular S1 and S2 audible, RRR. No murmurs appreciated. No gross JVD. Abdominal Soft, non-tender to palpation in all quadrants. No palpable masses, rebound tenderness, or guarding. Bowel sounds present Genitourinary Penis is circumcised and Long catheter has been removed. Extremities No edema, no clubbing, and no cyanosis appreciated. Skin Warm, dry and intact. No apparent lesions. Objective Labs 11/30/24 04:39 11/30/24 04:39 Labs: Laboratory Results - last 24 hr 11/25/24 11/30/24 11/30/24 12:34 00:30 00:40 WBC RBC Hgb Hct MCV MCH MCHC RDW Std Deviation Plt Count Neut % (Auto) Lymph % (Auto) [place] % (Auto) Eos % (Auto) Baso % (Auto) Neut # (Auto) Lymph # (Auto) [place] # (Auto) Eos # (Auto) Baso # (Auto) Immature Gran # (Auto) Absolute Nucleated RBC Immature Gran % Nucleated RBC % Puncture Site Right Radial ABG pH 7.48 H ABG pCO2 43 D ABG pO2 53 L* D ABG HCO3 31 H ABG O2 Saturation 90 L ABG Base Excess 7 H FiO2 21 Sodium 136 Potassium 4.6 D Chloride 100 Carbon Dioxide 29.2 Anion Gap 7 BUN 25 H Creatinine 1.0 Estim Creat Clear Calc 106.1 eGFR > 60 BUN/Creatinine Ratio 25 H Glucose 152 H Calculated Osmolality 279 Calcium 9.3 Corrected Calcium Phosphorus Magnesium Albumin Aspergillus Ag (EIA) NOT DETECTED Aspergillus Index Value <0.50 11/30/24 11/30/24 01:14 04:39 WBC 13.8 H RBC 5.44 Hgb 15.9 D Hct 47.8 MCV 88 MCH 29.2 MCHC 33.3 RDW Std Deviation 39.7 Plt Count 228 D Neut % (Auto) 87 H Lymph % (Auto) 4 L [place] % (Auto) 6 Eos % (Auto) 0 Baso % (Auto) 1 Neut # (Auto) 12.0 H Lymph # (Auto) 0.5 L [place] # (Auto) 0.8 Eos # (Auto) 0.0 Baso # (Auto) 0.1 Immature Gran # (Auto) 0.50 H Absolute Nucleated RBC 0.00 Immature Gran % 4 H Nucleated RBC % 0 Puncture Site Right Radial ABG pH 7.48 H ABG pCO2 43 ABG pO2 60 L ABG HCO3 31 H ABG O2 Saturation 93 ABG Base Excess 7 H FiO2 21 Sodium 136 Potassium 4.4 Chloride 100 Carbon Dioxide 28.1 Anion Gap 8 BUN 26 H Creatinine 0.9 Estim Creat Clear Calc 117.9 eGFR > 60 BUN/Creatinine Ratio 29 H Glucose 148 H Calculated Osmolality 279 Calcium 9.6 Corrected Calcium 9.6 Phosphorus 2.7 Magnesium 2.3 Albumin 4.3 D Aspergillus Ag (EIA) Aspergillus Index Value ABG Interpretation ABG results: 11/25/24 11/26/24 11/26/24 16:33 03:30 08:50 ABG pH 7.40 7.35 7.26 L ABG pCO2 44 54 H D 68 H D ABG pO2 61 L 89 D 118 H D ABG HCO3 28 H 30 H 30 H ABG O2 Saturation 92 97 98 ABG Base Excess 2 3 1 11/26/24 11/26/24 11/27/24 12:45 19:23 04:53 ABG pH 7.25 L 7.27 L 7.26 L ABG pCO2 68 H 64 H 67 H ABG pO2 81 L D 62 L 77 L ABG HCO3 30 H 30 H 30 H ABG O2 Saturation 95 90 L 95 ABG Base Excess 1 1 1 11/27/24 11/28/24 11/28/24 09:52 05:15 07:24 ABG pH 7.28 L 7.34 L 7.30 L ABG pCO2 63 H 60 H 67 H ABG pO2 81 L 81 L 360 H D ABG HCO3 30 H 32 H 33 H ABG O2 Saturation 96 96 101 H ABG Base Excess 1 5 H 4 H 11/29/24 11/30/24 11/30/24 05:04 00:40 01:14 ABG pH 7.39 7.48 H 7.48 H ABG pCO2 55 H D 43 D 43 ABG pO2 81 L D 53 L* D 60 L ABG HCO3 33 H 31 H 31 H ABG O2 Saturation 97 90 L 93 ABG Base Excess 7 H 7 H 7 H Quality Measures Quality Measures none Assessment & Plan Assessment Current Active Medications: Generic Name Dose Route Start Last Admin Trade Name Freq PRN Reason Stop Dose Admin Acetaminophen 650 mg 11/26/24 15:28 Acetaminophen Keisha 325 Mg/10 Ml Udc NG 12/25/24 16:04 Q6H PRN Pain 1-3 and/or Fever >100 Albuterol/Ipratropium 3 ml 11/25/24 16:34 11/27/24 04:52 Albuterol/Ipratropium (Duoneb) Rt Keisha 3 Ml Nebu INH 12/25/24 16:33 3 ml Q2HR PRN Administration SHORTNESS OF BREATH OR WHEEZE Albuterol/Ipratropium 3 ml 11/30/24 11:00 11/30/24 10:51 Albuterol/Ipratropium (Duoneb) Rt Keisha 3 Ml Nebu INH 12/30/24 10:59 3 ml Q4HRRT RANDELL Administration Amlodipine Besylate 10 mg 11/30/24 09:00 11/30/24 09:02 Amlodipine Besylate 5 Mg Tablet PO 12/30/24 08:59 10 mg QDAY RANDELL Administration Clonidine 0.1 mg 11/29/24 19:30 11/30/24 09:03 Clonidine Hcl 0.1 Mg Tablet PO 12/29/24 19:29 0.1 mg Q12HR RANDELL Administration Dextrose 50 ml 11/26/24 15:36 Dextrose 50%-Water Inj 50 Ml Syringe IV 12/26/24 15:35 Q15MIN PRN BG <50 OR BG <70 & pt unresponsive Enoxaparin Sodium 40 mg 12/01/24 09:00 Enoxaparin Sod Inj 40 Mg/0.4 Ml Syringe SC 12/15/24 08:59 DAILY RANDELL Haloperidol Lactate 1 mg 11/29/24 16:52 11/29/24 21:34 Haloperidol Lact Inj 5 Mg/Ml Vial IV 12/04/24 16:51 1 mg X1 PRN Administration AGITATION (SEVERE) Hydralazine HCl 50 mg 11/29/24 17:45 11/30/24 09:03 Hydralazine Hcl 25 Mg Tablet PO 12/29/24 17:44 50 mg Q8H RANDELL Administration Hydrochlorothiazide 25 mg 11/29/24 12:15 11/30/24 09:04 Hydrochlorothiazide 12.5 Mg Capsule PO 12/29/24 12:14 25 mg QDAY RANDELL Administration Ceftriaxone Sodium/Dextrose 1 gm in 50 mls @ 100 mls/hr 11/26/24 08:33 11/30/24 09:04 Rocephin/D5w 1gm Iv Premix IV 12/03/24 08:32 100 mls/hr QDAY RANDELL Administration Nicardipine/Sodium Chloride 20 mg in 200 mls @ 50 mls/hr 11/29/24 16:29 11/30/24 06:45 Cardene Ivpb IV 12/29/24 09:34 5.5 mg/hr .Q4H PRN 55 mls/hr PER PROTOCOL Administration Protocol 5 MG/HR Methylprednisolone Sodium Succinate 40 mg 11/30/24 21:00 Methylprednisolone Sod Succ 40 Mg/Ml Vial IVP 12/07/24 20:59 Q12HR RANDELL Nicotine 21 mg 11/26/24 15:45 11/30/24 09:00 Nicotine Patch 21 Mg/24 Hr Patch.Td24 TOP 12/26/24 15:44 21 mg QDAY RANDELL Administration Fluticasone/Salmeterol 1 puff 11/25/24 19:00 11/26/24 08:10 Fluticasone/Salmeterol 250/50 14 Dose Inh INH 12/25/24 18:59 Not Given On Hold: 11/26/24 07:56 BIDRT RANDELL Sodium Chloride 3 ml 11/25/24 12:23 11/25/24 12:31 Sodium Chloride Rt Keisha 0.9% 3 Ml Nebu INH 12/25/24 12:22 3 ml PRN PRN Administration SOLN Plan Patient is a 54-year-old male with a past medical history significant for COPD not on home oxygen, chronic nicotine dependence, 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 Patient was initially admitted to the floor for COPD exacerbation. Patient will be upgraded to the ICU for acute respiratory failure with hypercarbia and hypoxia secondary to bronchoconstriction from COPD exacerbation and medication side effect. o overnight events. Patient was examined at bedside; he is alert and oriented x 2 (can answer what his full name is, answers medical when asked where he is, could not answer what year it was, what month it was, or who was the current president). However, later in the day he seemed to become less confused and more lucid (A & O x 3). His systolic blood pressure is around 160 on monitor at the time of interview while on amlodipine, clonidine, hydralazine, hydrochlorothiazide, and nicardipine drip. The underlying etiology behind this significantly refractory hypertension is unknown and further work-up including renal Doppler flow, urine metanephrines, renin-angiotensin ratio, and AM cortisol have been ordered. 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 Patient requested to be put back on CPAP today, saying that it helped him (however, when respiratory technicians had arrived, he changed his mind again). When queried on whether he uses a CPAP at home he replied in the negative but endorsed daytime somnolence. In the setting of refractory hypertension, obesity, male sex, age 40+, witnessed snoring and long neck circumference, DARLINE seems the most plausible diagnosis at this time and he may benefit from outpatient polysomnography / sleep study. The BLOSSOM initially precipitated by likely blood pressure drop is completely resolved. In terms of his diagnosis of COPD exacerbation, he will have his last dose of ceftriaxone today and be continued on his IV solumedrol 40 mg at a reduced frequency of q12HR as well as scheduled Duoneb q4HR and q2HR prn. Due to patient's clinical stability, the decision was made to wean patient off of nicardipine drip (with a goal of maintaining SBP at 180 or lower) and downgrade him to floors today. 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 Patient requested to be put back on CPAP today, saying that it helped him (however, when respiratory technicians had arrived, he changed his mind again and this happened twice). When queried on whether he uses a CPAP at home he replied in the negative but endorsed daytime somnolence. In the setting of refractory hypertension, obesity, male sex, age 40+, witnessed snoring and long neck circumference, DARLINE seems the most plausible diagnosis at this time and he may benefit from outpatient polysomnography / sleep study. DDx: pheochromocytoma, primary hyperaldosteronism, hyperthyroidism, steroid- induced, aortic coarctation, Marky's syndrome Dx: -11/30 renal artery duplex negative for renal artery stenosis -11/27/24 TSH slightly low at 0.75, suggesting some possible hyperthyroid component of ongoing hypertension Rx: -Weaned off of nicardipine drip -PO amlodipine 10 mg qD -PO clonidine 0.1 mg q12HR -PO hydralazine 50 mg q8HR -PO hydrochlorothiazide 25 mg qD -Consider starting an BEKA inhibitor -Ordered renal Doppler flow -Ordered urine metanephrines -Ordered renin-angiotensin ratio -Ordered AM cortisol -Outpatient follow-up for polysomnography to confirm obstructive sleep apnea may be beneficial RRx: -Patient's BP has remained below 180 even after weaning of nicardipine drip PULM #Acute respiratory failure 2/2 COPDE, s/p extubation (resolved) Patient presented with worsening shortness of breath and was initially on BiPAP with DuoNebs every 4 hourly. Patient received labetalol IV after which he developed worsening tachypnea and dyspnea unamenable to BiPAP and requiring subsequent intubation and mechanical ventilation. 11/28 patient self-extubated while tube feeds were running leading to aspiration event, was reintubated (2nd intubation) Now, on 11/29, patient has been extubated and his respiratory status has clinically stabilized on room air #Aspiration pneumonitis 11/28 patient self-extubated while tube feeds were running leading to aspiration event, was reintubated (2nd intubation) Dx: -11/29 CXR shows prominent pneumonia of the left lung base that is improved from 11/28 s/p receiving 1500 mg IV azithromycin Rx: -Finish last dose of ceftriaxone today ([id number]) -Continue solumedrol 40 mg q12HR -Continue Duoneb q2HR as needed and q4HR scheduled RRx: -Patient's respiratory status appears greatly improved and he is no longer exhibiting significant wheezing GI/Hep No active problem RENAL #BLOSSOM, likely prerenal (resolved) Likely 2/2 abrupt drop in BP 2 days ago Dx: -Creatinine today is sub 1.0 Rx: -Encourage PO hydration and monitor UOP #Hyperkalemia Patient's K down-trended to 4.4 from 4.6 Rx: -Continue PO hydrochlorothiazide 25 mg qD for both hypertension and hyperkalemia HEME/ONC Leukocytosis Initial WBC elevation to 20+ were likely 2/2 continued steroid administration and reactive WBC up-trended today to 13.8 from 11.2 (could still be 2/2 continued solumedrol dosing) ENDO Prediabetic Dx: -11/27/24 hemoglobin A1c was 5.9% Rx: -Continue monitoring blood sugars RRX: -Patient's blood sugars have been adequately controlled ID No acute problems MSK/DERM No acute problems ICU Health maintenance: Dispo: Due to patient's clinical stability, the decision was made to wean patient off of nicardipine drip (with a goal of maintaining SBP at 180 or lower) and downgrade him to floors today. Diet: Cardiac DVT ppx: Enoxaparin 40 mg SC twice daily GI ppx: None Mechanical Ventilation: No Sedation: No IV lines: 2 pIV Central line: No Arterial line: No Long: Yes (11/27) Code status: FULL CODE Plan of care discussed with Attending Dr. Baldemar Miller, DO Internal Medicine, PGY-1
--- NOTE | 2024-11-30 13:19 | ESPR_ITS ---
<Statement entered by Bon Fontana MD - 11/30/24 17:22> Patient seen and assessed in hospital bed, ICU downgrade for COPD exacerbation and likely underlying OHS/DARLINE. Patient was successfully extubated after self extubation which required reintubation prior days. Patient is awake and answering questions appropriately but seems somewhat somnolent. Patient's daughter is bedside, provided update regarding the patient's status and she notes understanding of his condition. Patient's blood pressure is currently well-controlled; however, he is requiring 4 agents and workup including renal duplex ultrasound and urine aldosterone is pending. Goal will be to switch the patient to a different regimen which will include BEKA/ARB and likely CCB for guideline based therapy of hypertension. Patient also in agreement to use CPAP at night; will reassess patient's mentation in AM. I have personally seen and examined the patient. I agree with the resident's assessment and plan as documented below. Bon Fontana DO PGY-2 Internal Medicine - GME Documentation for date of: 11/30/24 Subjective Subjective Interval history: ICU downgrade. Patient was initially upgraded on 12/01 for acute hypoxic respiratory failure with hypoxia heavy and hypoxia secondary to bronchoconstriction from COPD exacerbation, suspected medication side effect. Required intubation due to worsening tachypnea despite BiPAP and respiratory acidosis on ABG. Developed BLOSSOM during ICU, likely secondary to aggressive blood pressure management with BEKA inhibitor. Resolved with IV fluids. Throughout ICU care, patient was very agitated and wax/waned in mentation. Patient self extubated on 11/28 despite restraints and sedation, was re-intubated due to persistent respiratory distress. Concern for aspiration pneumonia as tube feeds were still continued during this episode. CXR 11/29 showed prominent PNA left base retrocardiac. Treated with ceftriaxone 1 g on 11/26-11/30. Blood pressure remained elevated. Systolic blood pressure was around 160 on monitor at the time of interview while on amlodipine, clonidine, hydralazine, hydrochlorothiazide, and nicardipine drip. Renal ultrasound was negative for stenosis. Downgraded for further management of persistent hypertension and aspiration pneumonia. Exam Vital Signs Temp Pulse Resp BP Pulse Ox O2 Del Method O2 Flow Rate 97.4 F 87 16 158/96 H 92 L Room Air 6 11/30/24 12:01 11/30/24 12:01 11/30/24 12:01 11/30/24 12:01 11/30/24 12:01 11/29/24 16:01 11/29/24 13:45 FiO2 28 11/29/24 13:45 Narrative Exam Physical Exam General: Awake, in mild distress due to anxiety. Agitated. HEENT: Normocephalic, atraumatic, mucous membranes moist. Heart: Regular rate and rhythm, normal S1 and S2, no murmurs appreciated. Distant heart sounds. Lungs: Wheezing in right lung > left. Decreased breath sounds in left lower lobe. Abdomen: Soft, obese, nondistended, nontender, positive bowel sounds. No guarding or rebound tenderness. Neurologic: Alert and oriented x3, no gross neurological deficit, and patient able to move all 4 extremities. Extremities: No edema. Skin: No rash or ecchymoses. Objective Labs 12/01/24 04:35 12/01/24 04:35 Labs: Laboratory Results - last 24 hr 11/25/24 11/30/24 11/30/24 12:34 00:30 00:40 WBC RBC Hgb Hct MCV MCH MCHC RDW Std Deviation Plt Count Neut % (Auto) Lymph % (Auto) Hoke % (Auto) Eos % (Auto) Baso % (Auto) Neut # (Auto) Lymph # (Auto) Hoke # (Auto) Eos # (Auto) Baso # (Auto) Immature Gran # (Auto) Absolute Nucleated RBC Immature Gran % Nucleated RBC % Puncture Site Right Radial ABG pH 7.48 H ABG pCO2 43 D ABG pO2 53 L* D ABG HCO3 31 H ABG O2 Saturation 90 L ABG Base Excess 7 H FiO2 21 Sodium 136 Potassium 4.6 D Chloride 100 Carbon Dioxide 29.2 Anion Gap 7 BUN 25 H Creatinine 1.0 Estim Creat Clear Calc 106.1 eGFR > 60 BUN/Creatinine Ratio 25 H Glucose 152 H Calculated Osmolality 279 Calcium 9.3 Corrected Calcium Phosphorus Magnesium Albumin Aspergillus Ag (EIA) NOT DETECTED Aspergillus Index Value <0.50 11/30/24 11/30/24 01:14 04:39 WBC 13.8 H RBC 5.44 Hgb 15.9 D Hct 47.8 MCV 88 MCH 29.2 MCHC 33.3 RDW Std Deviation 39.7 Plt Count 228 D Neut % (Auto) 87 H Lymph % (Auto) 4 L Hoke % (Auto) 6 Eos % (Auto) 0 Baso % (Auto) 1 Neut # (Auto) 12.0 H Lymph # (Auto) 0.5 L Hoke # (Auto) 0.8 Eos # (Auto) 0.0 Baso # (Auto) 0.1 Immature Gran # (Auto) 0.50 H Absolute Nucleated RBC 0.00 Immature Gran % 4 H Nucleated RBC % 0 Puncture Site Right Radial ABG pH 7.48 H ABG pCO2 43 ABG pO2 60 L ABG HCO3 31 H ABG O2 Saturation 93 ABG Base Excess 7 H FiO2 21 Sodium 136 Potassium 4.4 Chloride 100 Carbon Dioxide 28.1 Anion Gap 8 BUN 26 H Creatinine 0.9 Estim Creat Clear Calc 117.9 eGFR > 60 BUN/Creatinine Ratio 29 H Glucose 148 H Calculated Osmolality 279 Calcium 9.6 Corrected Calcium 9.6 Phosphorus 2.7 Magnesium 2.3 Albumin 4.3 D Aspergillus Ag (EIA) Aspergillus Index Value ABG Interpretation ABG results: 11/25/24 11/26/24 11/26/24 16:33 03:30 08:50 ABG pH 7.40 7.35 7.26 L ABG pCO2 44 54 H D 68 H D ABG pO2 61 L 89 D 118 H D ABG HCO3 28 H 30 H 30 H ABG O2 Saturation 92 97 98 ABG Base Excess 2 3 1 11/26/24 11/26/24 11/27/24 12:45 19:23 04:53 ABG pH 7.25 L 7.27 L 7.26 L ABG pCO2 68 H 64 H 67 H ABG pO2 81 L D 62 L 77 L ABG HCO3 30 H 30 H 30 H ABG O2 Saturation 95 90 L 95 ABG Base Excess 1 1 1 11/27/24 11/28/24 11/28/24 09:52 05:15 07:24 ABG pH 7.28 L 7.34 L 7.30 L ABG pCO2 63 H 60 H 67 H ABG pO2 81 L 81 L 360 H D ABG HCO3 30 H 32 H 33 H ABG O2 Saturation 96 96 101 H ABG Base Excess 1 5 H 4 H 11/29/24 11/30/24 11/30/24 05:04 00:40 01:14 ABG pH 7.39 7.48 H 7.48 H ABG pCO2 55 H D 43 D 43 ABG pO2 81 L D 53 L* D 60 L ABG HCO3 33 H 31 H 31 H ABG O2 Saturation 97 90 L 93 ABG Base Excess 7 H 7 H 7 H Quality Measures Quality Measures none Assessment & Plan Assessment Current Active Medications: Generic Name Dose Route Start Last Admin Trade Name Freq PRN Reason Stop Dose Admin Acetaminophen 650 mg 11/26/24 15:28 Acetaminophen Keisha 325 Mg/10 Ml Udc NG 12/25/24 16:04 Q6H PRN Pain 1-3 and/or Fever >100 Albuterol/Ipratropium 3 ml 11/25/24 16:34 11/27/24 04:52 Albuterol/Ipratropium (Duoneb) Rt Keisha 3 Ml Nebu INH 12/25/24 16:33 3 ml Q2HR PRN Administration SHORTNESS OF BREATH OR WHEEZE Albuterol/Ipratropium 3 ml 11/30/24 11:00 11/30/24 10:51 Albuterol/Ipratropium (Duoneb) Rt Keisha 3 Ml Nebu INH 12/30/24 10:59 3 ml Q4HRRT RANDELL Administration Amlodipine Besylate 10 mg 11/30/24 09:00 11/30/24 09:02 Amlodipine Besylate 5 Mg Tablet PO 12/30/24 08:59 10 mg QDAY RANDELL Administration Clonidine 0.1 mg 11/29/24 19:30 11/30/24 09:03 Clonidine Hcl 0.1 Mg Tablet PO 12/29/24 19:29 0.1 mg Q12HR RANDELL Administration Dextrose 50 ml 11/26/24 15:36 Dextrose 50%-Water Inj 50 Ml Syringe IV 12/26/24 15:35 Q15MIN PRN BG <50 OR BG <70 & pt unresponsive Enoxaparin Sodium 40 mg 12/01/24 09:00 Enoxaparin Sod Inj 40 Mg/0.4 Ml Syringe SC 12/15/24 08:59 DAILY RANDELL Haloperidol Lactate 1 mg 11/29/24 16:52 11/29/24 21:34 Haloperidol Lact Inj 5 Mg/Ml Vial IV 12/04/24 16:51 1 mg X1 PRN Administration AGITATION (SEVERE) Hydralazine HCl 50 mg 11/29/24 17:45 11/30/24 09:03 Hydralazine Hcl 25 Mg Tablet PO 12/29/24 17:44 50 mg Q8H RANDELL Administration Hydrochlorothiazide 25 mg 11/29/24 12:15 11/30/24 09:04 Hydrochlorothiazide 12.5 Mg Capsule PO 12/29/24 12:14 25 mg QDAY RANDELL Administration Ceftriaxone Sodium/Dextrose 1 gm in 50 mls @ 100 mls/hr 11/26/24 08:33 11/30/24 09:04 Rocephin/D5w 1gm Iv Premix IV 12/03/24 08:32 100 mls/hr QDAY RANDELL Administration Methylprednisolone Sodium Succinate 40 mg 11/30/24 21:00 Methylprednisolone Sod Succ 40 Mg/Ml Vial IVP 12/07/24 20:59 Q12HR RANDELL Nicotine 21 mg 11/26/24 15:45 11/30/24 09:00 Nicotine Patch 21 Mg/24 Hr Patch.Td24 TOP 12/26/24 15:44 21 mg QDAY RANDELL Administration Fluticasone/Salmeterol 1 puff 11/25/24 19:00 11/26/24 08:10 Fluticasone/Salmeterol 250/50 14 Dose Inh INH 12/25/24 18:59 Not Given On Hold: 11/26/24 07:56 BIDRT RANDELL Sodium Chloride 3 ml 11/25/24 12:23 11/25/24 12:31 Sodium Chloride Rt Keisha 0.9% 3 Ml Nebu INH 12/25/24 12:22 3 ml PRN PRN Administration SOLN Plan Patient is a 54-year-old male with past medical history of COPD not on oxygen at home, tobacco use, and hx of pulmonary cocci (diagnosed 1993, treated) who presents on 11/25 for severe shortness of breath, admitted for acute hypoxic respiratory failure secondary to COPD exacerbation. #Hypertensive urgency #Hypertension Presented with BP 179/113. Denies history of hypertension. Was treated aggressively on admission with IV labetolol, IV hydralazine, and BEKA inhibitors without improvement. Continued to be persistently elevated in ICU. Relatively controlled on clonidine, hydrochlorothiazide, amlodipine, and hydralazine. Weaned off nicardipine drip. Renal US negative for stenosis. Likely persistent secondary to undiagnosed DARLINE and continuous steroid use. Plan: - Switch amlodipine to nifedipine 90 mg - Start BEKA inhibitor tomorrow in place of clonidine if creatinine stable - Hydralazine 50 mg q8hr - Hydrochlorothiazide 25 mg daily - Follow up urine metanephrines, renin-angiotensin ratio, and AM cortisol - CTM BP #DARLINE Patient has been told that he snores at night and wakes up fatigued. Has obese habitus with enlarged neck. Was supposed to get sleep study done but never completed due to insurance complications. Does not use CPAP or oxygen at night. - CPAP/BiPAP nightly - Outpatient follow up for sleep study #Acute hypoxic hypercapnic respiratory failure 2/2 #COPD exacerbation #S/p intubation 11/27, extubation 11/29 #Hx COPD #Hx tobacco use Presented with 3 to 4-day history of shortness of breath. 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 Went to ER in [place] 11/25, received breathing treatment and steroids without much improvement. Presented today because he ran out of medications at home. Possibly taking albuterol, Spiriva, prednisone. 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 Smokes 1 1/2 PPD for many years, trying to quit. Required intubation on 11/27 due to acute hypoxic respiratory failure, self extubated on 11/28, re-intubated and re-extubated on 11/29. Saturating well >88% on room air. Low suspicion for aspiration pneumonia. Plan: ?DuoNebs q4hr and prn q2hr ?Advair twice daily ?IV Solu-Medrol 40 mg every 12 hours ?Incentive spirometer ?Chest physiotherapy daily ?Guaifenesin as needed ?Counseled on tobacco cessation ?Nicotine patch daily #Leukocytosis, likey reactive Likely reactive as patient received steroids yesterday in [place] ED. Continue to be on steroids as part of breathing treatment. Concern for aspiration pneumonia secondary to self extubation. S/p IV CFX (11/26-11/30) - CTM CBC and signs of infection #BLOSSOM, resolved Likely secondary to aggressive BP management with BEKA inhibitor on admission. - CTM renal function #Hyperkalemia, resolved Potassium elevated at 5.6 on 11/29. Also possibly secondary to aggressive CCB and BEKA inhibitor use for hypertension. - Hydrochlorothiazide as above #Prediabetes A1c 5.9 on 11/27. - Outpatient management #Hx pulmonary cocci Reports previous diagnosis of cocci in 1993 and was treated. Negative for cocci IgM and IgG. Health Maintenance Disposition: ICU to med telemetry DVT prophylaxis: Heparin GI prophylaxis: None needed Diet: Regular CODE STATUS: Full Patient plan of care was discussed with the resident, Dr. Fontana, and attending physician, Dr. Gipson. Iliana Montero, PGY-1 Attending Provider Attestation/Addendum I have discussed and was present for the essential components of the history, physical examination, diagnosis, and treatment plan with the resident. I agree with the patient's care as documented by the resident and amended herein by me. Dominguez Byrne DO. Although this document has been carefully reviewed, there may still be some phonetic and other typographical errors. These errors are purely grammatical due to imperfections in the software program and should not be construed in any way to compromise the substance of the patient's medical care during this visit.
--- NOTE | 2024-11-30 22:00 | PC.NURSE ---
Notified that LBM was on 11/25/2024. pt passing gas
[2024-12-01] VITALS (14 sets, daily range): BP systolic 143–181; BP diastolic 94–110; PULSE 64–107; RESP 15–27; TEMP 36.2–36.7; O2SAT 91–99
[2024-12-01] MEDS: ALBUTEROL/IPRATROPIUM (Duoneb) RT SOL 3 ML NEBU INH ×3 (02:16→11:51)
[2024-12-01 05:38] LABS: Basophils # (Auto) 0.1 Thou/mm3 (0.0-0.2); Basophils % (Auto) 1 % (0-2.5); Eosinophils # (Auto) 0.0 Thou/mm3 (0.0-0.5); Eosinophils % (Auto) 0 % (0-10); Hematocrit 47.1 % (41.0-53.0); Hemoglobin 15.8 g/dL (13.5-16.0); Immature Granulocytes Auto 0.48 Thou/mm3 (0.00-0.00); Lymphocytes # (Auto) 0.8 Thou/mm3 (1.0-4.8); Lymphocytes % (Auto) 5 % (10-50); Mean Corpuscular HGB Conc 33.5 g/dl (31.0-37.0); Mean Corpuscular Hemoglobin 29.5 pg (25.0-35.0); Mean Corpuscular Volume 88 fL (80-100); Monocytes # (Auto) 1.0 Thou/mm3 (0.0-0.8); Monocytes % (Auto) 7 % (0-12); Neutrophils # (Auto) 13.3 Thou/mm3 (1.8-7.7); Neutrophils % (Auto) 85 % (37-80); Nucleated Red Blood Cell # 0.02 Thou/mm3 (0.00-0.00); Nucleated Red Blood Cell % 0 /100 WBC (0); Platelet Count 231 Thou/mm3 (140-440); RDW Standard Deviation 40.0 fL (35.1-43.9); Red Blood Count 5.35 Miln/mm3 (4.50-5.90); White Blood Count 15.7 Thou/mm3 (3.8-10.6)
[2024-12-01 06:01] LABS: Albumin, Serum 4.0 gm/dL (3.5-5.0); Anion Gap 8 (7-16); BUN/Creatinine Ratio 26 Ratio (12-20); Blood Urea Nitrogen 26 mg/dL (9-23); Calcium 9.3 mg/dL (8.3-10.6); Calcium (Corrected) 9.3 mg/dL (8.5-10.1); Carbon Dioxide 30.3 mMol/L (20.0-31.0); Chloride 99 mMol/L (98-107); Creatinine (Component) 1.0 mg/dL (0.6-1.3); Estimated Creatinine Clearance 104.4 mL/min (>60); Glucose 130 mg/dL (74-106); Magnesium 2.3 mg/dL (1.6-2.6); Osmolality,Calculated 280 (275-295); Phosphorous 4.3 mg/dL (2.4-5.1); Potassium 4.8 mMol/L (3.4-5.1); Sodium 137 mMol/L (136-145); eGFR > 60 See Note
[2024-12-01] MEDS: NIFEdipine XL 30 MG TABCR 90 MG PO (08:32)
[2024-12-01] MEDS: ENOXAPARIN SOD INJ 40 MG/0.4 ML SYRINGE SC (08:32)
[2024-12-01] MEDS: cefTRIAXone/D5w 1gm IV premix 1 GM/50 ML BAG IV (08:33)
--- NOTE | 2024-12-01 11:16 | PC.CC ---
[id number] attempted to get report from assigned RN Monique, but she was busy with another pt. Assigned RN stated pt is good but will call back with an update. Pt is down grading to Tele and will be in room 271.
--- NOTE | 2024-12-01 12:49 | PD.RESDS ---
Planned Discharge Date 12/01/24 DS: Providers Provider Date of admission: 11/25/24 16:05 Primary care physician: Physician No Primary/Family Admitting Provider: Jason Gipson MD Attending Provider on Admission: Thien Byrne DO Consults: 11/26/24 10:15 Referral Registered Dietitian Routine Comment: For tube feeds 12/01/24 09:11 Referral Physical Therapy Routine Comment: Physician Instructions: Attending Provider on DC: Tihen Byrne DO Discharging Provider: Iliana Montero DO DS: Diagnosis Problem List Completed Was Problem List Reviewed/Reconciled?: Yes Hospital Course Hospital Course Hospital course: Summary: Patient is a 54-year-old male with past medical history of COPD not on oxygen at home, tobacco use, and hx of pulmonary cocci (diagnosed 1993, treated) who presents on 11/25 for severe shortness of breath, admitted for acute hypoxic respiratory failure secondary to COPD exacerbation. Patient was upgraded to ICU on 11/27 due to worsening acute hypoxic respiratory failure despite BiPAP, Duonebs, and steroids as well as hypertensive emergency despite aggressive treatment. Patient was sedated and intubated with continuation of breathing treatments, however self extubated on 11/28, was intubated due to continued respiratory distress and safely extubated on 11/29. There was concern that patient may have aspirated during self extubation however, patient has been saturating well on room air since. CXR also shows improvement after completion of antibiotic course. Throughout stay, patient has had persistently high blood pressures, which patient reports has been chronically labile. Was mostly controlled with 4 different anti-hypertensive medications, which patient will continue outpatient. Suspect underlying DARLINE and possible exacerbation with steroids and being in high stress environment, pending aldosterone, AM cortisol, and renin; however recommend outpatient work up for other secondary etiologies in addition to sleep study. Due to ICU course and prolonged bedridden state, patient was evaluated by PT who recommended discharge with home PT/OT, patient was agreeable and was safely discharged home. ED Course: -Initial vitals were BP 179/111, HR 111, RR 20, temp 97.8F, 90% on 2 L NC -Labs significant for WBC 24.9. CMP unremarkable. BNP and troponin WNL. EKG showed sinus rhythm with no ST or T wave abnormalities. -Imaging included unremarkable CXR. -In the ED, patient was given albuterol 10 mg x1, ipratropium 1 mg x 1, Solu-Medrol 125 mg x 1, mag 2 g x 1, DuoNebs x 1 Discharge Recommendations: - Start new blood pressure medications: nifedipine 90 mg daily, hydralazine 50 mg three times a day, Losartan 50 mg-hydrochlorothiazide 12.5 mg daily. - Stop metoprolol - Continue Spiriva and albuterol inhaler - Take prednisolone 40mg once daily for 4days - Please follow up with PCP within 1 week of discharge - Recommend follow up with institutional commodity analyst within 2 weeks of discharge for possible sleep study - If you don't have a PCP, you can make an appointment at the [facility]: [address] [place] [address] Hospital Diagnoses: #Hypertensive urgency #Hypertension #DARLINE #Acute hypoxic hypercapnic respiratory failure 04/11 #COPD exacerbation #S/p intubation 11/27, extubation 11/29 #Hx COPD #Hx tobacco use #Leukocytosis, likey reactive #BLOSSOM, resolved #Hyperkalemia, resolved #Prediabetes #Hx pulmonary cocci Disposition: Safe discharge to home. Patient plan of care was discussed with the attending physician, Dr. Byrne . Iliana Montero, PGY-1 Time Spent with Patient Time attestation: Total time spent providing and/or coordinating discharge services: Time spent: Greater than 30 minutes Exam Vital Signs Temp Pulse Resp BP Pulse Ox O2 Del Method O2 Flow Rate 97.1 F 107 H 18 150/107 H 98 Room Air 6 12/01/24 12:12/01/24 12:12/01/24 12:12/01/24 12:12/01/24 12:12/01/24 12:11/29/24 13:45 FiO2 30 12/01/24 06:10 Narrative Exam Physical Exam General: Awake and in no acute distress. Agitated but otherwise cooperative. Obese. HEENT: Normocephalic, atraumatic, mucous membranes moist. Heart: Regular rate and rhythm, normal S1 and S2, no murmurs appreciated. Distant heart sounds. Lungs: Mild wheezing in right lung > left. Abdomen: Soft, obese, nondistended, nontender, positive bowel sounds. No guarding or rebound tenderness. Neurologic: Alert and oriented x3, no gross neurological deficit, and patient able to move all 4 extremities. Extremities: No edema. Skin: No rash or ecchymoses. Discharge Plan Plan Patient Disposition: Home w/HOME HEALTH Patient condition on transfer: Stable Care Plan Goals: - Start new blood pressure medications: nifedipine 90 mg daily, hydralazine 50 mg three times a day, Losartan 50 mg-hydrochlorothiazide 12.5 mg daily. - Stop metoprolol - Continue Spiriva and albuterol inhaler - Take prednisolone 40mg once daily for 4days - Please follow up with PCP within 1 week of discharge - Recommend follow up with institutional commodity analyst within 2 weeks of discharge for possible sleep study - If you don't have a PCP, you can make an appointment at the [facility]: [address] [place] [address] Prescriptions/Referrals Prescriptions/Med Rec: New prednisone 20 mg tablet 40 mg PO QDAY Qty: 4 0RF Taper: Prednisone Taper 40 mg DAILY for 4 Days and 0 Hour nifedipine 30 mg Tablet Extended Release 24hr 90 mg PO QDAY Qty: 30 2RF hydralazine 25 mg Tablet 50 mg PO Q8H Qty: 30 2RF losartan-hydrochlorothiazide 50-12.5 mg tablet 1 tab PO QDAY Qty: 30 2RF Continued albuterol sulfate [Ventolin HFA] 90 mcg/actuation HFA aerosol inhaler 2 inh inhalation Q4H PRN (Reason: shortness of breath or wheezing) Qty: 8.5 0RF tiotropium bromide [Spiriva with HandiHaler] 18 mcg capsule, w/inhalation device 1 cap inhalation QDAY Qty: 2 0RF Rx Instructions: puncture 1 cap using device; one dose = 2 inhalations Discontinued metoprolol succinate 25 mg tablet extended release 24 hr 25 mg PO QDAY Patient Comments: TAKE 1 TABLET BY MOUTH EVERY DAY Referrals: No Primary/Family,Physician [Primary Care Provider] Patient/Caregiver Discharge Instructions Print Language: Divehi Stand Alone Forms: [employer] Award Info., Patient Portal Info Letter Discharge Order Discharge Orders: Discharge (Routine); Ordered 12/01/24 Ordered By: Tevin Meneses Quality Discharge Quality Measures VTE prophylaxis Attestestation Attestation I have discussed and was present for the essential components of the discharge history, physical examination, diagnosis, and discharge treatment plan with the resident. I agree with the patient's discharge care as documented by the resident and amended herein by me. Dominguez Byrne DO. The patient understood all discharge instructions, all questions were answered satisfactorily. The patient was instructed to return to the Emergency Department is symptoms worsened or persisted. Although this document has been carefully reviewed, there may still be some phonetic and other typographical errors. These errors are purely grammatical due to imperfections in the software program and should not be construed in any way to compromise the substance of the patient's medical care during this visit.
--- NOTE | 2024-12-01 15:30 | PC.SS ---
Patient confirmed that surrogate medical decision maker will be cousin, Luli Tapia; .
--- NOTE | 2024-12-02 07:40 | PC.CC ---
Addendum entered by Debra Padilla RN 12/02/24 10:28: called and spoke to Wolf to inform him that he does not qualify for HH for P.T. He stated he's walking around right now without any issues. He stated that he is able to drive himself at this time. I informed him that one of the requirements for HH is that he is homebound. Encouraged him to discuss with primary provider for outpatient therapy if he feels he would like outpatient P.T. He stated verbal understanding. Addendum entered by Debra Padilla RN 12/02/24 08:02: just spoke to Dr. Byrne to confirm if patient is homebound d/t the P.T. notes of 180 ft ambulation w/ walker. Pt lives with family who can assist. Pt is not homebound and Dr Byrne agrees that the patient does not need home health. He stated to cancel HH order. Original Note: spoke to the patient, he confirmed his primary care provider is Rosalba Hightower at [facility].
[2024-12-06 07:18] LABS: Renin Activity, Plasma* 3.14 ng/mL/h (0.25-5.82)
[2024-12-17 06:56] LABS: Aldosterone* 13 ng/dL; Cortisol,total,LC/MS/MS* <1.0 mcg/dL
== END 2024-12-01 15:26 | disposition home health service (06) | DRG 140 ==
LOC: SERX 15:48 → SERHOLD 16:11 → S3NX 18:32 → S2SX 11-26 13:07 → S3NX 11-29 10:57 → S2SX 12-01 09:52 → S2NX 12-01 11:27
PROVIDERS: Nurse Practitioner Primary Care; Student in an Organized Health Care Education/Training Program; Admitting Provider Student in an Organized Health Care Education/Training Program; Emergency Provider Family Medicine; Visit Provider Student in an Organized Health Care Education/Training Program
DX: J44.1 Chronic obstructive pulmonary disease with (acute) exacerbation (principal); J96.01 Acute respiratory failure with hypoxia; J96.02 Acute respiratory failure with hypercapnia; E66.01 Morbid (severe) obesity due to excess calories; F17.210 Nicotine dependence, cigarettes, uncomplicated; D72.829 Elevated white blood cell count, unspecified; I10 Essential (primary) hypertension; I16.1 Hypertensive emergency; G47.33 Obstructive sleep apnea (adult) (pediatric); Z68.39 Body mass index [BMI] 39.0-39.9, adult; E87.5 Hyperkalemia; J69.0 Pneumonitis due to inhalation of food and vomit; M17.0 Bilateral primary osteoarthritis of knee; N17.9 Acute kidney failure, unspecified; E87.29 Other acidosis; F05 Delirium due to known physiological condition; I1A.0 Resistant hypertension; E66.813 Obesity, class 3; R73.03 Prediabetes; K59.00 Constipation, unspecified; Z78.1 Physical restraint status; Z79.899 Other long term (current) drug therapy; Z91.199 Patient's noncompliance with other medical treatment and regimen due to unspecified reason; Z71.6 Tobacco abuse counseling; Z88.0 Allergy status to penicillin; Z88.2 Allergy status to sulfonamides
CPT/HCPCS: 36415; 36600; 71045; 80048; 80053; 80061; 80069; 80307; 80320; 82088; 82533; 82803; 83036; 83735; 84244; 84443; 84484; 85025; 85379; 86331; 86635; 87205; 87305; 87502; 87634; 87811; 93005; 93225; 93306; 93975; 94002; 94003; 94640; 94644; 94660; 94664; 94667; 96365; 96366; 96372; 96375; 97162; 99285; A4216; A9270; J0360; J0456; J0696; J1630; J1644; J1650; J1938; J2404; J2470; J2704; J2919; J3010; J3475; J3490; J7050; J7512; G0480; J1920; J7609

== ENCOUNTER 2025-01-10 11:15 | Emergency (ER) | payer MEDICAID, SELFPAY ==
[2025-01-10 11:15] VITALS: BMI 37.6
[2025-01-10 11:51] VITALS: BP 135/99; PULSE 88; RESP 24; TEMP 37; O2SAT 95
--- NOTE | 2025-01-10 11:54 | XR_ITS ---
CLINICAL INDICATION: cough TECHNIQUE: XR chest 2V, PA and lateral, 01/10/2025 at 12:35 a.m. COMPARISON: Chest radiograph 11/29/2024 FINDINGS: The cardiomediastinal silhouette is within normal limits. No airspace opacities suggestive of pneumonia. No mass detected. No pleural effusion or pneumothorax. Previously visualized left basilar opacification has resolved. Previously visualized endotracheal tube and orogastric tube have been removed in the interim. No acute osseous abnormality detected. IMPRESSION: No radiographic evidence for acute cardiopulmonary abnormality. - This report was generated utilizing speech recognition software. -
--- NOTE | 2025-01-10 11:59 | EDNOTE_ITS ---
<Statement entered by Sarah Matthew MD - 01/12/25 17:53> As co-signing physician, I was present and available for consult prn. I concur with the plan and care as documented by the midlevel provider. ED SOB =RME/HPI General Chief Complaint: Shortness of Breath/Dyspnea Stated Complaint: ASTHMA, COPD, SOB Time Seen by Provider: 01/10/25 11:45 Source: patient Arrival date/time: 01/10/25 11:15 54-year-old male with a history of COPD, asthma presents to the emergency room with a chief complaint of shortness of breath x 1 day Mode of arrival: ambulatory Limitations: no limitations Related Data Previous Rx's ?Medication ?Instructions ?Recorded albuterol sulfate 90 mcg/actuation 2 inh inhalation Q4 H PRN shortness 08/10/23 aerosol inhaler (Ventolin HFA) of breath or wheezing # 8.5 grams tiotropium bromide 18 mcg capsule 1 cap inhalation QDA Y #2 puffs 08/10/23 with inhalation device (Spiriva with HandiHaler) hydralazine 25 mg tablet 50 mg (2 x 25 mg) PO Q8H #30 tabs 12/01/24 losartan 50 mg-hydrochlorothiazide 1 tab PO QDAY #30 t abs 12/01/24 12.5 mg tablet nifedipine 30 mg tablet,extended 90 mg (3 x 30 mg) PO QDAY #30 tabs 12/01/24 release 24 hr prednisone 20 mg tablet 40 mg PO QDAY #4 tabs Allergies Allergy/AdvReac Type Severity Reaction Status Date / Time Penicillins Allergy Severe HIVES, Verified 02/27/24 02:19 EYES SWELL Sulfa (Sulfonamide Allergy Severe HIVES,EYES Verified 02/27/24 02:19 Antibiotics) SWELL Iodinated Contrast Media Allergy Unknown Anaphylaxis Verified 02/27/24 02:19 Review of Systems Review of Systems Systems Reviewed: All systems reviewed, normal except as documented Constitutional Constitutional: Reports system reviewed and no additional complaints, except as documented, Denies fatigue, Denies fever(s), Denies headache(s) and Denies weakness Eyes Eyes: Reports system reviewed and no additional complaints, except as documented , Denies blurry vision and Denies change in vision ENT Ears, Nose, Mouth, and Throat: Reports system reviewed and no additional complaints, except as documented, Denies otalgia, Denies headache(s), Denies nasal congestion, Denies throat swelling and Denies vertigo Cardiovascular Cardiovascular: Reports system reviewed and no additional complaints, except as documented, Denies chest pain, Reports dyspnea and Denies dyspnea on exertion Respiratory Respiratory: Reports system reviewed and no additional complaints, except as documented, Denies chest congestion, Reports cough, Reports dyspnea, Denies dyspnea on exertion and Reports wheezing Gastrointestinal Gastrointestinal: Reports system reviewed and no additional complaints, except as documented, Denies abdominal pain, Denies cramping, Denies nausea and Denies vomiting Genitourinary Genitourinary: Reports system reviewed and no additional complaints, except as documented, Denies dysuria and Denies hematuria Musculoskeletal Musculoskeletal: Reports system reviewed and no additional complaints, except as documented and Denies back pain Integumentary/Breasts Skin/Breast: Reports system reviewed and no additional complaints, except as documented and Denies wounds Neurologic Neurologic: Reports system reviewed and no additional complaints, except as documented, Denies confusion, Denies headache(s), Denies lack of coordination, Denies vertigo and Denies weakness Psychiatric Psychiatric: Reports system reviewed and no additional complaints, except as documented, Denies anxiety, Denies confusion, Denies depression, Denies paranoia, Denies suicidal ideation and Denies tactile hallucinations Endocrine Endocrine: Reports system reviewed and no additional complaints, except as documented and Denies fatigue Hematologic/Lymphatic Hematologic/Lymphatic: Reports system reviewed and no additional complaints, except as documented and Denies lymphadenopathy Allergic/Immunologic Allergic/Immunologic: Reports system reviewed and no additional complaints, except as documented, Denies throat swelling, Denies urticaria and Reports wheezing Past Medical History Past Medical History NEUROLOGIC: Negative Neurological Disorders CARDIAC: Positive Hypertension; Negative Cardiac Disorders or Congestive Heart Failure RESPIRATORY: Positive Chronic Obstructive Pulmonary Disease (COPD), Asthma, Bronchitis, Pneumonia, Sleep Apnea and Smoking GASTROINTESTINAL: Negative Gastrointestinal Disorders GENITOURINARY: Negative Genitourinary Disorders or Renal Disease MUSCULOSKELETAL: Negative Musculoskeletal Disorders or Arthritis ENDOCRINE: Negative Endocrine Disorders, Diabetes Mellitus Type 1 or Diabetes Mellitus Type 2 HEMATOLOGIC: Negative Blood Disorders or Sickle Cell Disease OTHER HISTORY: Negative Autoimmune Disease or Cancer Surgical History SURGICAL: Negative Abdominal Surgery Social History SMOKING STATUS: Current every day smoker SECOND HAND EXPOSURE: Yes SUBSTANCE USE: does not use OCCUPATION: [employer] pal[employer] ED Exam General Limitations: Present no limitations General appearance: Present alert and in no apparent distress Head Head exam: Present atraumatic Eye Eye exam: Present normal appearance, PERRL and EOMI ENT ENT exam: Present normal exam, normal oropharynx and mucous membranes moist Neck Neck exam: Present normal inspection, full ROM and trachea midline Chest Chest inspection: Present normal inspection and symmetric chest wall rise Respiratory Respiratory exam: Present normal lung sounds bilaterally, respiratory distress and wheezes; Absent stridor, accessory muscle use or prolonged expiratory phase Expanded Respiratory Exam Location: Left: wheezes, Right: wheezes, Upper: wheezes and Lower: wheezes Cardiovascular Cardiovascular exam: Present regular rate, normal rhythm, normal heart sounds, +S1 and +S2; Absent irregular rhythm Abdominal Exam Abdominal exam: Present soft and normal bowel sounds Extremities Exam Extremities exam: Present normal inspection and full ROM Back Exam Back exam: Present normal inspection and full ROM Neurological Exam Neurological exam: Present alert, oriented X3 and CN II-XII intact Psychiatric Psychiatric exam: Present normal affect and normal mood Skin Skin exam: Present warm, dry, intact and normal color Course Quality Measures none Orders Category Date Time Status XR chest 2V Stat Exams 01/10/25 11:54 Completed Albuterol/Ipratr Rt Keisha [Duoneb Rt Keisha] Med 01/10/25 11:54 Discontinued 6 ml INH X1 ONE Dexamethasone Inj [Decadron Inj] Med 01/10/25 11:54 Discontinued 10 mg PO X1 ONE Vital Signs Vital signs: Vital Signs Temperature 98.6 F 01/10/25 11:51 Pulse Rate 88 01/10/25 11:51 Respiratory Rate 24 H 01/10/25 11:51 Blood Pressure 135/99 H 01/10/25 11:51 Pulse Oximetry (%) 95 01/10/25 11:51 Oxygen Delivery Method Room Air 01/10/25 11:51 Shortness of Breath / Dyspnea MDM Narrative MDM Narrative:: 54-year-old male with a history of COPD, asthma presents to the emergency room with a chief complaint of shortness of breath x 1 day Patient is hemodynamically stable and in no apparent distress. Patient is not tachypneic not tachycardic and O2 saturation is 95% on room air Physical examination shows bilateral upper and lower lobe wheezing. Patient has a history of asthma and COPD Chest x-ray was negative for any pneumonic infiltrates. A breathing treatment and steroids were given with significant improvement to the patient's symptoms Patient was discharged and educated to follow-up with primary care provider in the next 24 to 48 hours and return to the emergency room for any evidence of worsening signs or symptoms Patient data External records reviewed:: [facility] previous records Clinical information provided by:: patient Social determinants that could affect healthcare access:: none Patient has the following chronic illnesses:: COPD asthma How is presenting disease/condition affected by chronic disease/condition?: exacerbated by Evaluation data The following diagnostics were reviewed and interpreted by me:: lab results Lab and/or radiology exams considered but not ordered:: Labs and radiology exams considered and ordered Interpretation Summary: Chest [id number]: The cardiomediastinal silhouette is within normal limits. No airspace opacities suggestive of pneumonia. No mass detected. No pleural effusion or pneumothorax. Previously visualized left basilar opacification has resolved. Previously visualized endotracheal tube and orogastric tube have been removed in the interim. No acute osseous abnormality detected. IMPRESSION: No radiographic evidence for acute cardiopulmonary abnormality. - This report was generated utilizing speech recognition software. - Medications / Prescriptions Medications or Prescriptions considered but not ordered:: Medication given Medication administrations:: Medication Administration History Discontinued Medications Albuterol/Ipratropium (Albuterol/Ipratropium (Duoneb) Rt Keisha 3 Ml Nebu) 6 ml INH X1 ONE Stop: 01/10/25 11:55 Last Admin: 01/10/25 12:14 Dose: 6 ml Documented By: BERNARDO Dexamethasone Sodium Phosphate (Dexamethasone Sod Phos Inj 10 Mg/Ml Vial) 10 mg PO X1 ONE Stop: 01/10/25 11:55 Last Admin: 01/10/25 12:13 Dose: 10 mg Documented By: DENA Medication given Consultations Consultation(s) initiated? (list below): No Diagnosis Shortness of Breath Differential Diagnosis: acute exacerbation of chronic obstructive airways disease, community acquired pneumonia and asthma with exacerbation Most likely diagnosis given after review of the tests above:: Asthma exacerbation Admission Indicated Admission indicated?: not indicated Admission Request Was there a request for admission?: No Disposition Plan Disposition Plan: Discharge Discharge Attestation Discharge Attestation: The patient and all family members were given an opportunity to ask questions and understood the discharge instructions. Discharge instructions specifically effects, indications for sooner follow up or return to the emergency department, and the expected course of current diagnosis. Patient condition: Stable Discharge Plan Plan Patient Disposition: HOME (Self Care) Discharge Disposition comment: Stable Prescriptions/Referrals Prescriptions/Med Rec: No Action prednisone 20 mg tablet 40 mg PO QDAY Qty: 4 0RF Taper: Prednisone Taper 40 mg DAILY for 4 Days and 0 Hour nifedipine 30 mg Tablet Extended Release 24hr 90 mg PO QDAY Qty: 30 2RF hydralazine 25 mg Tablet 50 mg PO Q8H Qty: 30 2RF losartan-hydrochlorothiazide 50-12.5 mg tablet 1 tab PO QDAY Qty: 30 2RF albuterol sulfate [Ventolin HFA] 90 mcg/actuation HFA aerosol inhaler 2 inh inhalation Q4H PRN (Reason: shortness of breath or wheezing) Qty: 8.5 0RF tiotropium bromide [Spiriva with HandiHaler] 18 mcg capsule, w/inhalation device 1 cap inhalation QDAY Qty: 2 0RF Rx Instructions: puncture 1 cap using device; one dose = 2 inhalations Referrals: No Primary/Family,Physician [Primary Care Provider] - In 1 week Problem List Clinical Impression: Asthma with acute exacerbation Patient/Caregiver Discharge Instructions Education Materials: ED Asthma, Acute (Adult) Additional Instructions: Please follow-up with your primary care provider in the next 24 to 48 hours X-ray of your chest was negative for any pneumonic infiltrates For any evidence of worsening signs or symptoms return to emergency room immediately Print Language: Nepali Stand Alone Forms: Coco Award Info., Work/School Release, Patient Portal Info Letter PA/CORSETIER Supervising Physician PA/CORSETIER Supervising Physician: Dr. Chen
[2025-01-10] MEDS: DEXAMETHASONE SOD PHOS INJ 10 MG/ML VIAL PO (12:13)
[2025-01-10 12:14] VITALS: PULSE 87; RESP 20; O2SAT 98
[2025-01-10] MEDS: ALBUTEROL/IPRATROPIUM (Duoneb) RT SOL 3 ML NEBU 6 ML INH (12:14)
[2025-01-10 13:25] VITALS: BP 137/70; PULSE 69; RESP 14; TEMP 36.7; O2SAT 98
== END 2025-01-10 13:26 | disposition home or self-care (01) ==
PROVIDERS: Emergency Provider Nurse Practitioner Family
DX: J44.1 Chronic obstructive pulmonary disease with (acute) exacerbation (principal); J45.901 Unspecified asthma with (acute) exacerbation
CPT/HCPCS: 71046; 94640; 99283; A9270; J1100